=== PATIENT | male | born 1945 | race Caucasian/White ===

== ENCOUNTER 2024-07-05 07:00 | Day surgery (SDC) | payer MEDICARE, SELFPAY ==
[2024-07-01 12:22] VITALS: BMI 38.3
[2024-07-01 13:01] LABS: % Basophils 0.8 % (0-2); % Immature Granulocytes 0.3 % (0-0.5); % Lymphocytes 34.4 % (20.5-51.1); % Monocytes 9.8 % (1.7-9.3); % Neutrophils 52.7 % (42.2-75.2); Absolute Basophils 0.1 10^3/uL (0-0.2); Absolute Eosinophils 0.1 10^3/uL (0-0.7); Absolute Monocytes 0.6 10^3/uL (0.1-0.6); Absolute Neutrophils 3.1 10^3/uL (1.4-6.5); Hematocrit 40.3 % (39.0-52.0); Hemoglobin 13.9 g/dL (13.0-18.0); Mean Corp Hgb Conc. 34.5 g/dL (33.0-37.0); Mean Corpuscular Hgb 31.3 pg (27.0-31.0); Mean Corpuscular Volume 90.8 fL (80.0-94.0); Mean Platelet Volume 9.1 fL (7.4-10.4); Nucleated Red Blood Cells % 0 % (-); Platelet Count 157 10^3/uL (130-400); Red Blood Cell Count 4.44 10^6/uL (4.70-6.10); Red Cell Dist. Width 13.6 % (11.5-14.5); White Blood Cell Count 5.9 10^3/uL (4.8-10.8)
[2024-07-01 13:14] LABS: PT 17.2 Sec (11.4-14.6)
[2024-07-01 13:16] LABS: ALT (SGPT) 25 U/L (0-50); AST (SGOT) 29 U/L (17-59); Albumin 4.8 g/dl (3.5-5.0); Alkaline Phosphatase 49 U/L (38-126); Blood Urea Nitrogen 18 mg/dl (9-20); Calcium 9.8 mg/dl (8.4-10.2); Carbon Dioxide 28 mmol/L (22-30); Chloride 101 mmol/L (98-107); Estimated Creatinine Clearance 92 ml/min; Glucose 102 mg/dl (70-99); Magnesium 1.9 mg/dl (1.6-2.3); Sodium 141 mmol/L (135-145); Total Bilirubin 1.4 mg/dl (0.2-1.3); Total Protein 7.5 g/dl (6.3-8.2); eGFR > 60.00
[2024-07-01 13:35] LABS: Potassium 4.4 mmol/L (3.5-5.1)
[2024-07-05] VITALS (15 sets, daily range): BP systolic 130–164; BP diastolic 74–83; BMI 38.3
--- NOTE | 2024-07-05 10:07 | ITS.CL.ABL ---
Activities Assistant - Ablation
Ablation
Procedure Report:
ELECTROPHYSIOLOGIC STUDY AND POSSIBLE ABLATION
DATE: July 05, 2024
Primary Care Provider: Dr Ramesh Ramirez
INDICATION:
Symptomatic Atrial Fibrillation.
Persistent (diagnosed January 2024)
HISTORY: See H and P.
Symptomatic AF, poorly controlled with attempted medical therapy.
Atrial fibrillation was definitively diagnosed in January 2024. It appears as though he has had a some ongoing symptoms prior to that but uncertain as to true duration of atrial fibrillation.
He has a history of symptomatic (dyspnea on exertion as well as fatigue) persistent atrial fibrillation as well as heart failure with mildly reduced ejection fraction (LVEF 40-45%). He has been symptomatic despite being rate controlled. He has
marked bradycardia at baseline making antiarrhythmic drug therapy use unsafe, he has not tolerated attempt at beta-maude therapy due to symptomatic bradycardia. He understands that given his marked bradycardia he may also require permanent
pacemaker implantation for optimal management of his symptomatic rhythm disorder.
Echocardiogram from February 23Jun2023 which notes normal LV cavity size with mildly decreased global wall motion� �And overall LVEF estimated at 45%, normal RV size and function, mild to moderate tricuspid regurgitation without pulmonary
hypertension.� The left and right atria are both severely dilated.
HAS-BLED: 1
Age
CHADSVASc: 4
CHF, NYHA Class 3, LVEF 40-45%
HTN
Age
PRESENTING RHYTHM: AF
HISTORY: See H and P.
Symptomatic AF, poorly controlled with attempted medical therapy.
ANTICOAGULATION: Apixaban 5 mg twice daily
'TIME-OUT': called and confirmed.
SEDATION/ANESTHESIA: provided via the anesthesia department using general anesthesia.
PROCEDURE:
Ultrasound Guidance performed by wv was utilized for femoral venous Vascular Access b/l.
A decapolar CS catheter was placed within the CS for mapping and pacing.
The intracardiac ultrasound catheter was positioned in the RA for continuous intracardiac ultrasound imaging.
Heparin bolus and infusion to target ACT at 300 -350 seconds was administered. Transseptal puncture was performed. This entailed advancing a sheath with dilator into the superior vena cava and withdrawing both (monitoring intracardiac ultrasound,
fluoroscopy and tip pressure) with the tip oriented toward the atrial septum. The fossa ovalis was engaged (indicated by sudden displacement of the sheath tip as well as tenting of the fossa seen on intracardiac ultrasound).
The FarapFleep transseptal system was used. Left atrial catheter position was confirmed by echocardiographic imaging and fluoroscopy followed by RF delivery using the [employer] Software system resulting in successful LA access with pressure monitoring
demonstrating LA pressure waveforms (LA mean pressure 8 mm Hg). The sheath was advanced over the dilator and positioned in the left atrium.
Cardioversion restored sinus rhythm
The Bird Grid multipolar mapping catheter was initially positioned through the transseptal sheath for high density mapping.
Geometry and voltage mapping was performed using the Hole 19 multipolar grid catheter. Ensite-X was utilized for three-dimensional electroanatomical mapping.
A 3-D map was created using Ensite-X in Voxel mode. A 3-D reconstructed CT image was compared to the 3-D Navex map to assist in anatomic evaluation, mapping and ablation.
The FarapFleep PFA catheter and system was used for cardiac ablation. Catheter positioning was guided and confirmed using both I.C.E. and fluoroscopy.
PV isolation approach was used to electrically isolate each PV ostia (LSPV, LIPV, RSPV, RIPV).
Additional energy applications/additional ablation set was required to accomplish wide area circumferential ablation around each of the pulmonary vein sets and additionally ablation to accomplish LA posterior wall ablation.
Remapping with the Bird multipolar grid catheter found that all PVPs were eliminated at each vein demonstrating entrance block. Also pacing from the multipolar mapping catheter around the the circumference of the ostia was performed at 10 ma and
2.0 msec output to assess for exit block. This demonstrated electrical isolation at each of the pulmonary vein ostia (LSPV, LIPV, RSPV, RIPV). There is also entrance and exit block at the LA posterior wall.
Programmed electrostimulation failed to induce any arrhythmias.
I.C.E. :
Pre-Ablation Post-Ablation
LVEF: 40 % 40 %
WMA: none none
Pericardial effusion: none none
COMPLICATIONS:
SUMMARY:
- Mapping and ablation to isolate the PVs
- Additional AF ablation set after PVI.
- 3-D Electroanatomical Mapping
- Intracardiac Ultrasound
Post ablation, I discussed today's findings and results with the patient's brother, Tobias.
RECOMMENDATIONS:
- Observe in monitored bed.
- Maintain oral anticoagulation.
- Office visit with me in 3-4 months.
Copy to:
Dr Ramesh Ramirez
[2024-07-05 11:09] LABS: ACT-LR - POC 374 Seconds (116-155)
[2024-07-05 11:23] LABS: ACT-LR - POC 326 Seconds (116-155)
[2024-07-05] MEDS: ANESTHETIC LOZENGE 1 LOZENGE PO (12:49)
--- NOTE | 2024-07-05 14:04 | W.PN.UPDATE ---
Update Note
Progress Note Update
Pt seen post PFA. Right groin site without ht/bleeding, non tender. OOB ambulating, urinating without difficulty. Post EKG SB w/1st deg AVB 50s, no acute changes. HR has improved since preop, when it was AFib 30-40s. Resume eliquis tonight, continue
other meds as before. Followup at [facility] in [address], [address] Dr[address] Self thereafter.
== END 2024-07-05 14:57 | disposition home or self-care (01) ==
LOC: CATH 07:00
PROVIDERS: ATTENDING PHYSICIAN Internal Medicine Cardiovascular Disease; FAMILY PHYSICIAN Family Medicine; OTHER PHYSICIAN Family Medicine
DX: I48.19 Other persistent atrial fibrillation (principal); I11.0 Hypertensive heart disease with heart failure; E78.5 Hyperlipidemia, unspecified; E66.9 Obesity, unspecified; Z68.38 Body mass index [BMI] 38.0-38.9, adult; K51.90 Ulcerative colitis, unspecified, without complications; Z68.37 Body mass index [BMI] 37.0-37.9, adult; Z79.899 Other long term (current) drug therapy; Z79.01 Long term (current) use of anticoagulants
CPT/HCPCS: C1732; C1894; C1769; C1892; C1759; 36415; 75572; 80053; 83735; 85025; 85347; 85610; 86850; 86900; 86901; 93005; 93656; 93657; C1730; C1733; C1760; C1766; Q9967

== ENCOUNTER → 2025-01-12 14:07 | Outpatient (REF) | payer MEDICARE, SELFPAY | LOC: RCS 14:07 | PROVIDERS: ATTENDING PHYSICIAN Nurse Practitioner; FAMILY PHYSICIAN Physician Assistant Medical | DX: I50.20 Unspecified systolic (congestive) heart failure (principal); I49.3 Ventricular premature depolarization | CPT/HCPCS: 93306 ==

== ENCOUNTER 2025-01-21 10:45 | Inpatient (IN) | payer MEDICARE, SELFPAY ==
[2025-01-21] VITALS (11 sets, daily range): BP systolic 125–181; BP diastolic 62–91; BMI 39.8; BMI 38.1
[2025-01-21] MEDS: LOW STRENGTH ASPIRIN 324 MG PO (07:21)
--- NOTE | 2025-01-21 10:18 | ITS.CL.CATH ---
Eligibility Examiner - Catheterization
Cardiac Catheterization
Procedure Report:
RIGHT AND LEFT HEART STUDY
Date of Procedure: January 21, 2025
Referring: Dr. Magdalena Zayas
PROCEDURES:
1. Right heart catheterization
2. Left heart catheterization with coronary and single-plane left ventriculography
INDICATION: This is a 79-year-old gentleman with a past medical history notable for hypertension, atrial fibrillation, and dilated cardiomyopathy with recent worsening in LVEF. He underwent pulmonary vein isolation in July 2024 and experienced
a recent worsening in symptoms of exertional dyspnea as well as development of lower extremity edema. A recent echocardiogram was notable for worsening in LVEF and he is now referred for coronary angiography. He denies any chest discomfort but
does report a significant change in functional capacity with dyspnea occurring at very low levels of exertion.
ACCESS: Right radial artery, 6 Icelandic sheath in right brachial vein, 6 Icelandic sheath. Ultrasound guidance was utilized for both access sites.
HEMODYNAMICS : mmHg
RA (m) : 25
RV (s/d) : 87/13, 22
PA (s/d, m) : 91/33, 48
PCWP (m) : 40
AO (s/d, m) : 156/72, 103
LV (s/d) : 167/24
LVEDP : 35
Estimated Ladan Cardiac Output: 5.6 L / min and Cardiac Index: 2.2 L/ min / m-2
Systemic vascular resistance: 13.9 Wood units or 1114 ccdkk-vpl-mc(-5)
Pulmonary vascular resistance: 1.4 Wood units or 114 yqiut-clt-eo(-5)
CORONARY FINDINGS :
Dominance: Right
LEFT MAIN: Tubular 50% stenosis
LEFT ANTERIOR DESCENDING: The LAD arises normally from the left main and has a complex proximal 95% stenosis involving the origin of a large first diagonal branch. The mid to distal LAD has minor irregularities.
CIRCUMFLEX: The circumflex is a large-caliber nondominant vessel with a 95% proximal stenosis. The circumflex supplies a single large bifurcating obtuse marginal branch.
RIGHT CORONARY ARTERY: The right coronary artery is occluded proximally with bridging collaterals and right to right collaterals as well as ayqp-hb-nwlci collaterals from circumflex and LAD
VENTRICULOGRAPHY: Left ventriculography is performed in FUENTES projection. The digital single-plane left ventricular ejection fraction is visually estimated at 20-25%
SEDATION: 46 minutes of procedural sedation was utilized. An independent manager medical was present to assist with and help manage the patient's level of consciousness and physiologic status
RADIATION SUMMARY: Fluoro Time (min): 4.9, Dose (mGy): 864, DAP (Gy.cm2) : 76.4
CONCLUSIONS
1. Multivessel coronary artery disease involving proximal LAD, large diagonal branch, proximal circumflex, and total occlusion of the RCA which is collateralized in a right to right and ejqq-we-trbav fashion
2. LV dysfunction with elevated right and left ventricular filling pressures. Reasonable cardiac output and cardiac index
RECOMMENDATIONS
1. Patient will be admitted and undergo diuresis.
2. Consult CT surgery to consider coronary artery bypass grafting with targets to LAD, diagonal, OM, and PDA/PLB, left atrial appendage ligation +/- MAZE
3. Significant LV dysfunction on good medical therapy. Cannot add oral beta maude given significant underlying bradycardia
Copy to: Dr. Bony Fleming
[2025-01-21] MEDS: LASIX 40 MG IV ×2 (10:49→17:00)
[2025-01-21 11:11] LABS: Hematocrit 39.2 % (39.0-52.0); Hemoglobin 13.5 g/dL (13.0-18.0); Mean Corp Hgb Conc. 34.4 g/dL (33.0-37.0); Mean Corpuscular Hgb 32.2 pg (27.0-31.0); Mean Corpuscular Volume 93.6 fL (80.0-94.0); Platelet Count 155 10^3/uL (130-400); Red Blood Cell Count 4.19 10^6/uL (4.70-6.10); Red Cell Dist. Width 13.4 % (11.5-14.5)
[2025-01-21 11:50] LABS: APTT 153.7 Sec (23.4-35.0)
--- NOTE | 2025-01-21 13:25 | CONSULT.CT ---
Consultation
-
Date/Time Consultation Requested: 01/21/25
Date/Time Consultation Performed: 01/21/25
Requesting Provider: Dr. Goins
Reason for Consultation: consideration of CABG with BRITTA clip +/- MAZE
Patient History
Physicians
Outpatient Cleaner Furniture: Dr. Magdalena Zayas
History of Present Illness
Mr. Doyle is a 79-year-old male with a PMHx of HTN, AF (s/p PVI - 07/2024) on Eliquis, and dilated cardiomyopathy with recent reduction of LVEF (45% to 20-25%) who presented to his outpatient cardiology office with complaints of progressive
dyspnea and worsening B/L LLE. He obtained a TTE (01/12/25) which showed newly reduced LVEF of 20-25% with severely reduced LV systolic dysfunction, dilated RV with preserved RV function, no /AI, trace MR, mild TR with PASP 68 and CVP 8, trace PA
and noted to be in AF with slow ventricular response. He was referred for R/LHC.
Today, Mr. Russell underwent R/LHC (01/21/25) with Dr. Goins which revealed elevated R-sided pressures and multivessel disease. He was admitted to IVU for inpatient diuresis. Eliquis was placed on hold and a Heparin gtt was initiated per
Cardiology. Cardiothoracic Surgery was consulted for evaluation of multivessel disease and consideration of CABG with targets to LAD, diagonal, OM, and PDA/PLB with BRITTA closure +/- MAZE. Patient is currently being medically optimized with diuretic
by primary team.
Past Medical History
Past Medical History: Atrial Fib, CHF, Covid-19 (2019) and HTN
Pre-diabetic
Past Surgical History
Past Surgical History: Other
PVI 07/2024
Family History
Father: at Age (50's) and Cause of (Mesothelioma )
Social History
Alcohol: None
Drug: Marijuana (occasional)
Tobacco: Non-Smoker
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
Allergies
Allergy/AdvReac Type Severity Reaction Status Date / Time
No Known Allergies Allergy Verified 01/21/25 06:41
Home Medications
�Medication �Instructions �Recorded �Confirmed �Type
apixaban 5 mg tablet (Eliquis) 5 mg PO BID 06/28/24 01/21/25 History
furosemide 20 mg tablet 20 mg PO DAILY 06/28/24 01/21/25 History
spironolactone 25 mg tablet 25 mg PO DAILY 06/28/24 01/21/25 History
atorvastatin 20 mg tablet (Lipitor) 20 mg PO DAILY 01/21/25 01/21/25 History
sacubitril 24 mg-valsartan 26 mg 1 tab PO BID 01/21/25 01/21/25 History
tablet (Entresto)
Review of Systems
-
History Source: Patient
General: Reports Weight Gain and Fatigue
HEENT: Reports No Symptoms
Respiratory: Reports BARRETT and Other (Orthopnea)
Cardiac: Reports Edema
Abdomen/GI: Reports No Symptoms
: Reports Nocturia
Musculoskeletal: Reports No Symptoms
Skin: Reports No Symptoms
Neurological: Reports No Symptoms
Vascular: Reports No Symptoms
Physical Exam
Vital Signs
Temp 98.3 F 01/21/25 12:29
Temp route: Oral 01/21/25 12:29
Pulse 37 01/21/25 12:45
Resp Rate 16 01/21/25 12:29
Blood pressure 150/70 01/21/25 12:29
Blood pressure extremity used: Left upper arm 01/21/25 12:29
Position: Sitting 01/21/25 12:29
MAP (cuff-Day Monitor) 88 01/21/25 12:29
SaO2 96 01/21/25 12:45
Oxygen Mode of Delivery Room air 01/21/25 12:29
Can the patient verbally communicate their pain? Yes 01/21/25 10:20
Actual Weight 129.3 kg 01/21/25 12:35
Body Mass Index (BMI) 38.1 01/21/25 12:35
Labs
01/21/25 10:55
APTT 153.7 Sec (23.4-35.0) H* 01/21/25 10:55
Exam
General: Well Developed and Good Appetite
HEENT: Normocephalic, Atraumatic and PERRLA
Respiratory: Clear
Cardiac: S1/S2 and Irregular Rhythm
GI: Soft, Non Tender and Non Distended
Skin: Warm and Dry
Neuro: AO x 3
Extremities: Lower Level Edema
Psych: Calm
Assessment / Plan
-
#CAD
- s/p R/LHC on 01/21/25 showing multivessel CAD - pLAD, diagonal, pCirc, and total occlusion of RCA with collateral flow (R to R & L to R)
- Continue high-dose statin therapy & ASA
- Not on BB due to bradycardia
- Heparin gtt per Cardiology while Eliquis held
- Obtain pre-operative work-up including: Chest CT, Carotid US, Vein Mapping
#CHF
- Pt with PMHx of dilated cardiomyopathy
- Recent TTE (12/2024) with newly reduced EF (45 - 20 to 25%)
- s/p R/LHC with elevated filling pressures (RA 25, PA 91/33, PCWP 40, LVEDP 35)
- admitted for further diuresis
- managed on GDMT (Lasix, Entresto, Spironolactone)
#HTN
- continue outpatient regiment
#AF
- s/p PVI with Dr. Fleming 07/2024
- Eliquis placed on hold by primary team, Heparin infusion ordered
- not on BB due to bradycardia
--- NOTE | 2025-01-21 13:56 | PTCARENOTE ---
Received pt post cath. Right radial and right brachial sites intact. Right radial site w/ R band. VSS. Pt denies chest pain or sob. Pt remains in atrial fibrillation. Pt's daughter at bedside. Will monitor.
[2025-01-21] MEDS: HEPARIN 25000 UNITS/250 ML IV (15:00)
--- NOTE | 2025-01-21 16:22 | CM ---
CM following for DC planning needs.
Met w/ patient + dtr. at bedside to complete initial assessment.
Pt. resides w/ dtr. in a private, 3 [facility] but remains on 1st and 2nd levels primarily; 2 [place].
He is functionally indep. at baseline w/ ADLs, mobility without the use of any assisted device.
Pt. still drives; in fact, he drove here.
Pt. has RX plan and uses [facility] on [address] for RX needs.
Pt. anticipates that he will need CT Surgery. Reviewed CM role in this regard.
Will follow closely for DC planning needs/ support.
[2025-01-21] MEDS: LIPITOR 80 MG PO (17:45)
[2025-01-21] MEDS: ENTRESTO 24 MG/26 MG 1 TAB PO (19:49)
[2025-01-21 21:27] LABS: APTT 64.9 Sec (23.4-35.0)
--- NOTE | 2025-01-21 23:54 | PTCARENOTE ---
Pt rec'd at change of shift in bed. Dyspneic with activity. lungs clear. afib on telemetry with ht rate 30-40's, denies feeling lightheaded. Right radial and brachial drsg intact with good pulse. No active bleeding or hematoma present. heparin gtt
adjusted to ptt level 64.9. Drip increased to 1600 units/hr.
[2025-01-22] VITALS (9 sets, daily range): BP systolic 112–153; BP diastolic 70–104; BMI 37.2
--- NOTE | 2025-01-22 00:32 | PTCARENOTE ---
6 beat run of VT on tele monitor at 2308.
[2025-01-22 04:34] LABS: Hematocrit 42.6 % (39.0-52.0); Hemoglobin 14.7 g/dL (13.0-18.0); Mean Corp Hgb Conc. 34.5 g/dL (33.0-37.0); Mean Corpuscular Hgb 31.9 pg (27.0-31.0); Mean Corpuscular Volume 92.4 fL (80.0-94.0); Mean Platelet Volume 9.1 fL (7.4-10.4); Platelet Count 152 10^3/uL (130-400); Red Blood Cell Count 4.61 10^6/uL (4.70-6.10); Red Cell Dist. Width 13.2 % (11.5-14.5); White Blood Cell Count 7.2 10^3/uL (4.8-10.8)
[2025-01-22 04:43] LABS: APTT 74.4 Sec (23.4-35.0)
[2025-01-22 04:55] LABS: ALT (SGPT) 23 U/L (0-50); AST (SGOT) 21 U/L (17-59); Albumin 4.4 g/dl (3.5-5.0); Alkaline Phosphatase 64 U/L (38-126); Blood Urea Nitrogen 16 mg/dl (9-20); Calcium 9.5 mg/dl (8.4-10.2); Carbon Dioxide 28 mmol/L (22-30); Chloride 106 mmol/L (98-107); Direct Bilirubin 0.1 mg/dl (0.0-0.4); Estimated Creatinine Clearance 105 ml/min; Glucose 114 mg/dl (70-99); HDL Cholesterol 45 mg/dl; LDL Cholesterol, Calculated 92 mg/dl; Potassium 3.9 mmol/L (3.5-5.1); Sodium 142 mmol/L (135-145); Total Bilirubin 1.6 mg/dl (0.2-1.3); Total Cholesterol 156 mg/dl (50-199); Triglyceride 98 mg/dl (10-149); Very Low Density Lipoprotein 19 mg/dl (0-30); eGFR > 60.00
[2025-01-22] MEDS: HEPARIN 25000 UNITS/250 ML IV ×2 (06:07→21:36)
[2025-01-22] MEDS: ALDACTONE 25 MG PO (08:18)
[2025-01-22] MEDS: PROTONIX 40 MG PO (08:18)
[2025-01-22] MEDS: LASIX 40 MG IV ×2 (08:19→15:29)
[2025-01-22] MEDS: ENTRESTO 24 MG/26 MG 1 TAB PO ×2 (08:19→21:36)
[2025-01-22] MEDS: LOW STRENGTH ASPIRIN 81 MG PO (08:19)
--- NOTE | 2025-01-22 08:38 | W.PN.CARDCBS ---
Today's Communication / Plan
-
Cont IV diuresis
CT surgery eval ongoing.
Impression / Plan
-
.
Customer Care Team Coach: Dr Simmons / Dr Zayas
Impression:
MVCAD for CABG eval
Ischemic CM EF 20-25%
HFrEF
PAFib hx PVI Jul 2024
HTN
Bradycardia
Cath Jan 21 2025:
INDICATION: This is a 79-year-old gentleman with a past medical history notable for hypertension, atrial fibrillation, and dilated cardiomyopathy with recent worsening in LVEF. He underwent pulmonary vein isolation in July 2024 and experienced
a recent worsening in symptoms of exertional dyspnea as well as development of lower extremity edema. A recent echocardiogram was notable for worsening in LVEF and he is now referred for coronary angiography. He denies any chest discomfort but
does report a significant change in functional capacity with dyspnea occurring at very low levels of exertion.
HEMODYNAMICS : mmHg
RA (m) : 25
RV (s/d) : 87/13, 22
PA (s/d, m) : 91/33, 48
PCWP (m) : 40
AO (s/d, m) : 156/72, 103
LV (s/d) : 167/24
LVEDP : 35
Estimated Ladan Cardiac Output: 5.6 L / min and Cardiac Index: 2.2 L/ min / m-2
Systemic vascular resistance: 13.9 Wood units or 1114 qujoh-vsy-ta(-5)
Pulmonary vascular resistance: 1.4 Wood units or 114 dopcs-roy-ch(-5)
CORONARY FINDINGS :
Dominance: Right
LEFT MAIN: Tubular 50% stenosis
LEFT ANTERIOR DESCENDING: The LAD arises normally from the left main and has a complex proximal 95% stenosis involving the origin of a large first diagonal branch. The mid to distal LAD has minor irregularities.
CIRCUMFLEX: The circumflex is a large-caliber nondominant vessel with a 95% proximal stenosis. The circumflex supplies a single large bifurcating obtuse marginal branch.
RIGHT CORONARY ARTERY: The right coronary artery is occluded proximally with bridging collaterals and right to right collaterals as well as cqqy-zf-urdzy collaterals from circumflex and LAD
VENTRICULOGRAPHY: Left ventriculography ejection fraction is visually estimated at 20-25%
CONCLUSIONS
1. Multivessel coronary artery disease involving proximal LAD, large diagonal branch, proximal circumflex, and total occlusion of the RCA which is collateralized in a right to right and [id number]-[id number] fashion
2. LV dysfunction with elevated right and left ventricular filling pressures. Reasonable cardiac output and cardiac index
RECOMMENDATIONS
1. Patient will be admitted and undergo diuresis.
2. Consult CT surgery to consider coronary artery bypass grafting with targets to LAD, diagonal, OM, and PDA/PLB, left atrial appendage ligation +/- MAZE
3. Significant LV dysfunction on good medical therapy. Cannot add oral beta maude given significant underlying bradycardia
Echo Jan 12 2025: Dilated cardiomyopathy with severely reduced left ventricular systolic function , EF 20-25%, Enlarged right ventricle with overall preserved RV systolic functio, Biatrial dilatation, Mild tricuspid regurgitation, PASP 68 mmHg,
AFib with slow response.
Outside echo January 2024: EF 45%, RALEIGH 6.1cm, mild to mod TR, RV dilated
Plan:
Cont IV Heparin; Eliquis held
Cath reviewed with pt
HR and bp stable
Cont GDMT, cont Entresto and aldactone.
No beta maude due to bradycardia
CT surgery eval and work up ongoing
Continue IV diuresis. 3L negative last 24 hrs
Wt coming down approx 8 lbs last 24 hrs if accurate
Monitor cr with diuresis and daily wts and Is and Os.
Progress Note - Customer Care Team Coach
Subjective
Date of Service: January 22, 2025
Pt seen and examined. No complaints. No chest pain or shortness of breath.
Objective
Labs:
01/22/25 04:05
01/22/25 04:05
Labs
Hgb 14.7 g/dL (13.0-18.0) 01/22/25 04:05
Hct 42.6 % (39.0-52.0) 01/22/25 04:05
Plt Count 152 10^3/uL (130-400) 01/22/25 04:05
APTT 74.4 Sec (23.4-35.0) H 01/22/25 04:05
Sodium 142 mmol/L (135-145) 01/22/25 04:05
Potassium 3.9 mmol/L (3.5-5.1) 01/22/25 04:05
BUN 16 mg/dl (9-20) 01/22/25 04:05
Creatinine 0.8 mg/dL (0.7-1.3) 01/22/25 04:05
Glucose 114 mg/dl (70-99) H 01/22/25 04:05
Vital Signs and I&O:
Vital Signs
Temp Pulse Resp BP Pulse Ox
98.1 F 53 20 141/70 96
01/22/25 03:56 01/22/25 03:55 01/22/25 03:56 01/22/25 03:55 01/22/25 03:56
Vital Signs
Temp Pulse Resp BP Pulse Ox
98.1 F 53 20 141/70 96
01/22/25 03:56 01/22/25 03:55 01/22/25 03:56 01/22/25 03:55 01/22/25 03:56
Intake & Output
01/20/25 01/21/25 01/22/25 01/23/25
06:59 06:59 06:59 06:59
Intake Total 300 / 300
Output Total 3300 / 3300
Balance -3000 / -3000
Physical Exam
Physical Exam
General: No acute distress, AAOX3
Neck: Negative JVD
Heart: Regular, Negative S3 positive S1/S2, Negative S4, No murmur
Lungs: CTA b/l, negative wheezes/rales/rhonchi
Abd: Positive BS, NT/ND, neg rebound/rigidity/guarding
Ext: Negative cyanosis/clubbing/edema
Neuro: nonfocal
[2025-01-22 11:51] LABS: APTT 80.9 Sec (23.4-35.0)
[2025-01-22 15:00] LABS: Glycohemoglobin (HgbA1c) 5.3 % (4.0-5.6)
--- NOTE | 2025-01-22 15:30 | PTCARENOTE ---
Assessment stable as documented. VSS no complaints, oob in chair most of day.
[2025-01-22] MEDS: LIPITOR 80 MG PO (17:41)
--- NOTE | 2025-01-22 23:26 | PTCARENOTE ---
assumed care of patient. AAOx3. independent in the room. denies any cp/sob. patient states feeling much better. states he ambulated in the halls without any cp/sob. no edema noted- much improved per patient. Afib on tele- 40s-70s. bp 122/82. heparin
gtt infusing per protocol. reviewed plan of care with patient and verbalized understanding. educated to inform RN with any new changes overnight. call [place]af[place]te within reach. makes needs known.
[2025-01-23 04:32] VITALS: BP 122/66
[2025-01-23 04:49] LABS: Hematocrit 44.9 % (39.0-52.0); Hemoglobin 15.6 g/dL (13.0-18.0); Mean Corp Hgb Conc. 34.7 g/dL (33.0-37.0); Mean Corpuscular Hgb 31.9 pg (27.0-31.0); Mean Corpuscular Volume 91.8 fL (80.0-94.0); Mean Platelet Volume 8.8 fL (7.4-10.4); Platelet Count 143 10^3/uL (130-400); Red Blood Cell Count 4.89 10^6/uL (4.70-6.10); Red Cell Dist. Width 12.9 % (11.5-14.5); White Blood Cell Count 7.3 10^3/uL (4.8-10.8)
[2025-01-23 06:04] LABS: APTT 164.1 Sec (23.4-35.0)
[2025-01-23 06:12] LABS: Blood Urea Nitrogen 19 mg/dl (9-20); Calcium 9.5 mg/dl (8.4-10.2); Carbon Dioxide 26 mmol/L (22-30); Chloride 106 mmol/L (98-107); Estimated Creatinine Clearance 105 ml/min; Glucose 119 mg/dl (70-99); Magnesium 1.9 mg/dl (1.6-2.3); Potassium 3.8 mmol/L (3.5-5.1); Sodium 140 mmol/L (135-145); eGFR > 60.00
[2025-01-23 07:35] VITALS: BP 140/67
[2025-01-23] MEDS: ENTRESTO 24 MG/26 MG 1 TAB PO ×2 (08:31→19:50)
[2025-01-23] MEDS: ALDACTONE 25 MG PO (08:31)
[2025-01-23] MEDS: PROTONIX 40 MG PO (08:31)
[2025-01-23] MEDS: LASIX 40 MG IV ×2 (08:32→16:35)
[2025-01-23] MEDS: LOW STRENGTH ASPIRIN 81 MG PO (08:32)
--- NOTE | 2025-01-23 08:34 | W.PN.CARDCBS ---
Today's Communication / Plan
-
Cont IV lasix
Cont IV heparin
CT surgery evaluating and possible CABG mid week
Impression / Plan
-
.
Water Supervisor: Dr Simmons / Dr Zayas
Impression:
MVCAD for CABG eval
Ischemic CM EF 20-25%
HFrEF
PAFib hx PVI Jul 2024
HTN
Bradycardia
Cath Jan 21 2025:
INDICATION: This is a 79-year-old gentleman with a past medical history notable for hypertension, atrial fibrillation, and dilated cardiomyopathy with recent worsening in LVEF. He underwent pulmonary vein isolation in July 2024 and experienced
a recent worsening in symptoms of exertional dyspnea as well as development of lower extremity edema. A recent echocardiogram was notable for worsening in LVEF and he is now referred for coronary angiography. He denies any chest discomfort but
does report a significant change in functional capacity with dyspnea occurring at very low levels of exertion.
HEMODYNAMICS : mmHg
RA (m) : 25
RV (s/d) : 87/13, 22
PA (s/d, m) : 91/33, 48
PCWP (m) : 40
AO (s/d, m) : 156/72, 103
LV (s/d) : 167/24
LVEDP : 35
Estimated Ladan Cardiac Output: 5.6 L / min and Cardiac Index: 2.2 L/ min / m-2
Systemic vascular resistance: 13.9 Wood units or 1114 uaqlb-srt-sc(-5)
Pulmonary vascular resistance: 1.4 Wood units or 114 fksem-axv-wc(-5)
CORONARY FINDINGS :
Dominance: Right
LEFT MAIN: Tubular 50% stenosis
LEFT ANTERIOR DESCENDING: The LAD arises normally from the left main and has a complex proximal 95% stenosis involving the origin of a large first diagonal branch. The mid to distal LAD has minor irregularities.
CIRCUMFLEX: The circumflex is a large-caliber nondominant vessel with a 95% proximal stenosis. The circumflex supplies a single large bifurcating obtuse marginal branch.
RIGHT CORONARY ARTERY: The right coronary artery is occluded proximally with bridging collaterals and right to right collaterals as well as zerq-hr-sopks collaterals from circumflex and LAD
VENTRICULOGRAPHY: Left ventriculography ejection fraction is visually estimated at 20-25%
CONCLUSIONS
1. Multivessel coronary artery disease involving proximal LAD, large diagonal branch, proximal circumflex, and total occlusion of the RCA which is collateralized in a right to right and zhgs-lx-zeinn fashion
2. LV dysfunction with elevated right and left ventricular filling pressures. Reasonable cardiac output and cardiac index
RECOMMENDATIONS
1. Patient will be admitted and undergo diuresis.
2. Consult CT surgery to consider coronary artery bypass grafting with targets to LAD, diagonal, OM, and PDA/PLB, left atrial appendage ligation +/- MAZE
3. Significant LV dysfunction on good medical therapy. Cannot add oral beta maude given significant underlying bradycardia
Echo Jan 12 2025: Dilated cardiomyopathy with severely reduced left ventricular systolic function , EF 20-25%, Enlarged right ventricle with overall preserved RV systolic functio, Biatrial dilatation, Mild tricuspid regurgitation, PASP 68 mmHg,
AFib with slow response.
Outside echo January 2024: EF 45%, RALEIGH 6.1cm, mild to mod TR, RV dilated
Plan:
Cont IV Heparin; Eliquis held
HR and bp remain stable
Cont GDMT, cont Entresto and aldactone.
No beta maude due to bradycardia
CT surgery eval and work up ongoing
Continue IV diuresis. Is and Os remain negative
Wt coming down over 10 lbs
Monitor cr with diuresis and daily wts and Is and Os.
Discussed with nursing.
Progress Note - Water Supervisor
Subjective
Date of Service: January 23, 2025
Pt seen and examined. No complaints. No chest pain or shortness of breath.
Objective
Labs:
01/23/25 04:32
01/23/25 04:32
Labs
Hgb 15.6 g/dL (13.0-18.0) 01/23/25 04:32
Hct 44.9 % (39.0-52.0) 01/23/25 04:32
Plt Count 143 10^3/uL (130-400) 01/23/25 04:32
APTT 164.1 Sec (23.4-35.0) H* 01/23/25 04:32
Sodium 140 mmol/L (135-145) 01/23/25 04:32
Potassium 3.8 mmol/L (3.5-5.1) 01/23/25 04:32
BUN 19 mg/dl (9-20) 01/23/25 04:32
Creatinine 0.8 mg/dL (0.7-1.3) 01/23/25 04:32
Glucose 119 mg/dl (70-99) H 01/23/25 04:32
Vital Signs and I&O:
Vital Signs
Temp Pulse Resp BP Pulse Ox
97.7 F 40 20 122/66 97
01/23/25 07:44 01/23/25 04:45 01/23/25 07:44 01/23/25 04:32 01/23/25 07:44
Vital Signs
Temp Pulse Resp BP Pulse Ox
97.7 F 40 20 122/66 97
01/23/25 07:44 01/23/25 04:45 01/23/25 07:44 01/23/25 04:32 01/23/25 07:44
Intake & Output
01/21/25 01/22/25 01/23/25 01/24/25
06:59 06:59 06:59 06:59
Intake Total 300 / 300 550 / 550
Output Total 3300 / 3300 950 / 950
Balance -3000 / -3000 -400 / -400
Physical Exam
Physical Exam
General: No acute distress, AAOX3
Neck: Negative JVD
Heart: Regular, Negative S3 positive S1/S2, Negative S4, No murmur
Lungs: CTA b/l, negative wheezes/rales/rhonchi
Abd: Positive BS, NT/ND, neg rebound/rigidity/guarding
Ext: Negative cyanosis/clubbing/edema
Neuro: nonfocal
[2025-01-23 11:32] VITALS: BP 102/62
[2025-01-23 13:44] LABS: APTT 82.9 Sec (23.4-35.0)
[2025-01-23 15:49] VITALS: BP 114/69
[2025-01-23] MEDS: HEPARIN 25000 UNITS/250 ML IV (16:31)
[2025-01-23] MEDS: LIPITOR 80 MG PO (17:43)
--- NOTE | 2025-01-23 18:00 | PTCARENOTE ---
Pt received this am with no c/o of any chest pain or sob. IV heparin infusing as ordered. OOB ad stanislaw, gait steady. Right radial and brachial cath sites WNL and open to air.
[2025-01-23 19:45] VITALS: BP 104/72
[2025-01-23 20:07] LABS: APTT 81.1 Sec (23.4-35.0)
[2025-01-23] MEDS: KCL 40 MEQ PO (22:52)
[2025-01-23] MEDS: MAGNESIUM OXIDE 500 MG PO (22:52)
[2025-01-23 22:58] VITALS: BP 120/63
--- NOTE | 2025-01-24 00:12 | PTCARENOTE ---
Pt received from previous shift OOB --> chair. AAOx3, pleasant. Tele = afib w/PVCs. Full physical assessment documented (refer to worklst) #20 LAC INTw/heparin gtt at 1400units/hr, protocol followed. Offers no complaints. Call christo w/in reach.
[2025-01-24 05:15] VITALS: BP 122/62
[2025-01-24 05:36] LABS: Hematocrit 45.4 % (39.0-52.0); Hemoglobin 15.9 g/dL (13.0-18.0); Mean Corpuscular Hgb 31.9 pg (27.0-31.0); Mean Corpuscular Volume 91.2 fL (80.0-94.0); Mean Platelet Volume 9.4 fL (7.4-10.4); Platelet Count 153 10^3/uL (130-400); Red Blood Cell Count 4.98 10^6/uL (4.70-6.10); Red Cell Dist. Width 13.2 % (11.5-14.5)
[2025-01-24 05:59] LABS: APTT 160.6 Sec (23.4-35.0)
[2025-01-24 06:00] VITALS: BMI 36.7
[2025-01-24 06:50] LABS: Blood Urea Nitrogen 25 mg/dl (9-20); Calcium 9.3 mg/dl (8.4-10.2); Carbon Dioxide 24 mmol/L (22-30); Chloride 107 mmol/L (98-107); Estimated Creatinine Clearance 93 ml/min; Glucose 115 mg/dl (70-99); Magnesium 1.9 mg/dl (1.6-2.3); Potassium 4.2 mmol/L (3.5-5.1); Sodium 139 mmol/L (135-145); eGFR > 60.00
[2025-01-24 08:04] VITALS: BP 131/73
[2025-01-24] MEDS: PROTONIX 40 MG PO (09:32)
[2025-01-24] MEDS: LASIX 40 MG IV ×2 (09:32→15:24)
[2025-01-24] MEDS: LOW STRENGTH ASPIRIN 81 MG PO (09:32)
[2025-01-24] MEDS: ALDACTONE 25 MG PO (09:32)
[2025-01-24] MEDS: HEPARIN 25000 UNITS/250 ML IV (11:24)
[2025-01-24 11:37] VITALS: BP 130/64
--- NOTE | 2025-01-24 12:34 | W.PN.CARDCBS ---
Today's Communication / Plan
-
Continue IV Lasix
Timing of surgical revascularization per CTS
Impression / Plan
-
Detective Youth Bureau: Dr Simmons / Dr Zayas
Impression:
MVCAD for CABG eval
Ischemic CM EF 20-25%
HFrEF
PAFib hx PVI Jul 2024
HTN
Bradycardia
Cath Jan 21 2025:
INDICATION: This is a 79-year-old gentleman with a past medical history notable for hypertension, atrial fibrillation, and dilated cardiomyopathy with recent worsening in LVEF. He underwent pulmonary vein isolation in July 2024 and experienced
a recent worsening in symptoms of exertional dyspnea as well as development of lower extremity edema. A recent echocardiogram was notable for worsening in LVEF and he is now referred for coronary angiography. He denies any chest discomfort but
does report a significant change in functional capacity with dyspnea occurring at very low levels of exertion.
HEMODYNAMICS : mmHg
RA (m) : 25
RV (s/d) : 87/13, 22
PA (s/d, m) : 91/33, 48
PCWP (m) : 40
AO (s/d, m) : 156/72, 103
LV (s/d) : 167/24
LVEDP : 35
Estimated Ladan Cardiac Output: 5.6 L / min and Cardiac Index: 2.2 L/ min / m-2
Systemic vascular resistance: 13.9 Wood units or 1114 iymji-qul-lm(-5)
Pulmonary vascular resistance: 1.4 Wood units or 114 bcutr-hqy-dj(-5)
CORONARY FINDINGS :
Dominance: Right
LEFT MAIN: Tubular 50% stenosis
LEFT ANTERIOR DESCENDING: The LAD arises normally from the left main and has a complex proximal 95% stenosis involving the origin of a large first diagonal branch. The mid to distal LAD has minor irregularities.
CIRCUMFLEX: The circumflex is a large-caliber nondominant vessel with a 95% proximal stenosis. The circumflex supplies a single large bifurcating obtuse marginal branch.
RIGHT CORONARY ARTERY: The right coronary artery is occluded proximally with bridging collaterals and right to right collaterals as well as xvcs-hr-aokzp collaterals from circumflex and LAD
VENTRICULOGRAPHY: Left ventriculography ejection fraction is visually estimated at 20-25%
CONCLUSIONS
1. Multivessel coronary artery disease involving proximal LAD, large diagonal branch, proximal circumflex, and total occlusion of the RCA which is collateralized in a right to right and mvby-cy-tdefl fashion
2. LV dysfunction with elevated right and left ventricular filling pressures. Reasonable cardiac output and cardiac index
RECOMMENDATIONS
1. Patient will be admitted and undergo diuresis.
2. Consult CT surgery to consider coronary artery bypass grafting with targets to LAD, diagonal, OM, and PDA/PLB, left atrial appendage ligation +/- MAZE
3. Significant LV dysfunction on good medical therapy. Cannot add oral beta maude given significant underlying bradycardia
Echo Jan 12 2025: Dilated cardiomyopathy with severely reduced left ventricular systolic function , EF 20-25%, Enlarged right ventricle with overall preserved RV systolic functio, Biatrial dilatation, Mild tricuspid regurgitation, PASP 68 mmHg,
AFib with slow response.
Outside echo January 2024: EF 45%, RALEIGH 6.1cm, mild to mod TR, RV dilated
Plan:
PCWP significantly elevated based on invasive hemodynamics 01/21/25
Continue IV diuresis. Is and Os remain negative
Wt coming down over 10 lbs
HR and bp remain stable
Cont aldactone
No beta maude due to bradycardia
Entresto on hold prior to OR
CTS eval for surgical revascularization given MV CAD by [facility]. Tentative plan for CABG this week.
Continue ASA/high intensity statin
Remains in rate controlled AFib
Continue heparin in place of Eliquis
Discussed with nursing.
Progress Note - Detective Youth Bureau
Subjective
Date of Service: January 24, 2025
No acute overnight events. Patient is resting comfortably in the IVU. No chest discomfort. No shortness of breath.
Objective
Labs:
01/24/25 05:23
01/24/25 05:23
Labs
Hgb 15.9 g/dL (13.0-18.0) 01/24/25 05:23
Hct 45.4 % (39.0-52.0) 01/24/25 05:23
Plt Count 153 10^3/uL (130-400) 01/24/25 05:23
APTT 160.6 Sec (23.4-35.0) H* 01/24/25 05:23
Sodium 139 mmol/L (135-145) 01/24/25 05:23
Potassium 4.2 mmol/L (3.5-5.1) 01/24/25 05:23
BUN 25 mg/dl (9-20) H 01/24/25 05:23
Creatinine 0.9 mg/dL (0.7-1.3) 01/24/25 05:23
Glucose 115 mg/dl (70-99) H 01/24/25 05:23
Vital Signs and I&O:
Vital Signs
Temp Pulse Resp BP Pulse Ox
98 F 59 20 131/73 96
01/24/25 11:36 01/24/25 08:15 01/24/25 11:36 01/24/25 08:04 01/24/25 11:36
Vital Signs
Temp Pulse Resp BP Pulse Ox
98 F 59 20 131/73 96
01/24/25 11:36 01/24/25 08:15 01/24/25 11:36 01/24/25 08:04 01/24/25 11:36
Intake & Output
01/22/25 01/23/25 01/24/25 01/25/25
06:59 06:59 06:59 06:59
Intake Total 300 / 300 550 / 550 240 / 240
Output Total 3300 / 3300 950 / 950 400 / 400 450 / 450
Balance -3000 / -3000 -400 / -400 -400 / -400 -210 / -210
Physical Exam
Physical Exam
Gen: NAD, AA
HEENT: NC/AT, sclera anicteric
Neck: No JVD
CV: Irregularly irregular, NL s1/s2
Lungs: CTAB
Abd: S/ND
Ext: No LE edema
Skin: Warm, dry
Neuro: Non-focal
[2025-01-24 14:01] LABS: APTT 90.9 Sec (23.4-35.0)
[2025-01-24 15:27] VITALS: BP 126/78
[2025-01-24] MEDS: LIPITOR 80 MG PO (16:56)
--- NOTE | 2025-01-24 17:18 | PTCARENOTE ---
Pt OOB in a chair and up in his room. He denies any discomfort. Pt given incentive spirometry instruction and is aware of sternal precautions. Telemetry shows slow atrial fib at a rate @60. Heparin infusion continues, will recheck PTT at 19:30.
[2025-01-24 19:43] VITALS: BP 151/77
[2025-01-24 21:06] LABS: APTT 75.6 Sec (23.4-35.0)
[2025-01-24 22:40] VITALS: BP 141/80
[2025-01-25] VITALS (8 sets, daily range): BP systolic 126–160; BP diastolic 60–84; BMI 36.7
--- NOTE | 2025-01-25 02:30 | PTCARENOTE ---
Pt. has no complaints of pain/discomfort, A-fib (rate down to 30's with sleep) on the monitor. Sat OOB in chair all evening, independent and ambulatory. Right radial cath site assessment WNL. Heparin gtt infusing at 1200 units/hr. Pt. currently
sleeping.
[2025-01-25] MEDS: HEPARIN 25000 UNITS/250 ML IV (03:48)
[2025-01-25 04:10] LABS: Hematocrit 47.8 % (39.0-52.0); Hemoglobin 16.5 g/dL (13.0-18.0); Mean Corp Hgb Conc. 34.5 g/dL (33.0-37.0); Mean Corpuscular Hgb 31.9 pg (27.0-31.0); Mean Corpuscular Volume 92.5 fL (80.0-94.0); Mean Platelet Volume 9.3 fL (7.4-10.4); Platelet Count 155 10^3/uL (130-400); Red Blood Cell Count 5.17 10^6/uL (4.70-6.10); Red Cell Dist. Width 13.1 % (11.5-14.5); White Blood Cell Count 7.2 10^3/uL (4.8-10.8)
[2025-01-25 04:24] LABS: APTT 129.5 Sec (23.4-35.0)
[2025-01-25 04:54] LABS: Blood Urea Nitrogen 25 mg/dl (9-20); Calcium 9.8 mg/dl (8.4-10.2); Carbon Dioxide 30 mmol/L (22-30); Chloride 103 mmol/L (98-107); Estimated Creatinine Clearance 84 ml/min; Glucose 105 mg/dl (70-99); Magnesium 1.9 mg/dl (1.6-2.3); Potassium 4.2 mmol/L (3.5-5.1); Sodium 141 mmol/L (135-145); eGFR > 60.00
--- NOTE | 2025-01-25 05:50 | W.PN.CT ---
Today's Communication / Plan
-
Plan:
-No major issues overnight. Denies CP/SOB
-Cont current medical management per primary team
-Cont. current meds (ASA, Heparin gtt, Lipitor, IV Lasix, Aldactone)
-Avoid SHEILA-I/ARBs/CCB x 48 hrs in preparation for CABG (Entresto d/c'd)
-Avoid preop BB given significant bradycardia
-Ongoing preop workup (carotid u/s today)/medical optimization
-Will d/c heparin gtt regulation supervisor to OR
-Tentatively for CABG +/- MAZE, +/- BRITTA clip, +/- Impella 5.[address] Castillo Friday 01/26
-Will cont. to closely monitor
Assessment / Plan
-
Assessment:
-Severe 3v CAD including 50% tubular LM
-BARRETT
-Ischemic CM(EF 20-25%) per TTE 01/12/25
-HFrEF
-PAFib S/p PVI Jul 2024
-HTN
-Class 2 obesity (BMI 36.7)
-Bradycardia
-Mild TR
-Trace MR
-LE edema
Discussed patient care with: Cardiology, Nursing, Respiratory Therapy, Pharmacy and Care Team
Subjective
-
Date of Service: January 25, 2025
No issues overnight. Denies CP/SOB
Objective Data
-
Lab Results
01/25/25 03:33
01/25/25 03:33
APTT 129.5 Sec (23.4-35.0) H 01/25/25 03:33
Vital Signs
Vital Signs
Temp Pulse Resp BP Pulse Ox
97.7 F 79 16 133/60 99
01/25/25 03:24 01/25/25 03:25 01/25/25 03:24 01/25/25 03:25 01/25/25 03:24
CT Intake/Output/Weight
01/24/25 01/24/25 01/25/25
06:59 18:59 06:59
Intake Total 240 / 720 480 / 720
Output Total 450 / 450
Balance -210 / 270 480 / 270
SaO2: 99 (RA)
Physical Exam
-
General: Awake, Oriented and AOx3
Cardiovascular: Irregular rate & rhythm and No Murmurs
Respiratory: Decreased Breath Sounds (at bases, otherwise clear)
Incision: Clean, Dry, Intact and Dressing Intact
Extremities: No Edema
Data Reviewed
-
Lab Results: Results Reviewed
Medications: Active Meds Reviewed
Chest X-Ray: Report Reviewed and Image Reviewed
ECG: Report Reviewed and Image Reviewed
[2025-01-25] MEDS: LASIX 40 MG IV ×2 (08:18→17:09)
[2025-01-25] MEDS: ALDACTONE 25 MG PO (08:18)
[2025-01-25] MEDS: LOW STRENGTH ASPIRIN 81 MG PO (08:18)
[2025-01-25] MEDS: PROTONIX 40 MG PO (08:18)
--- NOTE | 2025-01-25 08:30 | PTCARENOTE ---
Assumed care at 0700. Patient AO x3, SR, VSS, denies pain or shortness of breath. Lings CTA. Heparin gtt at 1100 units/hr. Voiding in the light yellow urine in the urinal at bedside. NPO heart cath today
--- NOTE | 2025-01-25 08:40 | PTCARENOTE ---
Assumed care. Patient sleeping on his side. VSS, A-fib HR 35, irregular. Trace ankle edema. Right radial and right brachial cath sites healing and open to air. Plan of care reviewed, Heparin infusing at 1100 units/hr, call villafuerte in reach
--- NOTE | 2025-01-25 09:36 | W.PN.CARDCBS ---
Addendum entered and electronically signed by Maddy Ordonez PA-C 01/25/25 12:33:
patient has acute on chronic heart failure now with worsening ejection fraction this admission
Original Note:
Today's Communication / Plan
-
Cont IV diuresis
For CABG this week
Impression / Plan
-
Vibrator Equipment Tester: Dr Simmons / Dr Zayas
Impression:
MVCAD for CABG eval
Ischemic CM EF 20-25%
HFrEF
PAFib hx PVI Jul 2024
HTN
Bradycardia
Cath Jan 21 2025:
INDICATION: This is a 79-year-old gentleman with a past medical history notable for hypertension, atrial fibrillation, and dilated cardiomyopathy with recent worsening in LVEF. He underwent pulmonary vein isolation in July 2024 and experienced
a recent worsening in symptoms of exertional dyspnea as well as development of lower extremity edema. A recent echocardiogram was notable for worsening in LVEF and he is now referred for coronary angiography. He denies any chest discomfort but
does report a significant change in functional capacity with dyspnea occurring at very low levels of exertion.
HEMODYNAMICS : mmHg
RA (m) : 25
RV (s/d) : 87/13, 22
PA (s/d, m) : 91/33, 48
PCWP (m) : 40
AO (s/d, m) : 156/72, 103
LV (s/d) : 167/24
LVEDP : 35
Estimated Ladan Cardiac Output: 5.6 L / min and Cardiac Index: 2.2 L/ min / m-2
Systemic vascular resistance: 13.9 Wood units or 1114 gsjes-kea-gi(-5)
Pulmonary vascular resistance: 1.4 Wood units or 114 bdbvw-mco-ol(-5)
CORONARY FINDINGS :
Dominance: Right
LEFT MAIN: Tubular 50% stenosis
LEFT ANTERIOR DESCENDING: The LAD arises normally from the left main and has a complex proximal 95% stenosis involving the origin of a large first diagonal branch. The mid to distal LAD has minor irregularities.
CIRCUMFLEX: The circumflex is a large-caliber nondominant vessel with a 95% proximal stenosis. The circumflex supplies a single large bifurcating obtuse marginal branch.
RIGHT CORONARY ARTERY: The right coronary artery is occluded proximally with bridging collaterals and right to right collaterals as well as iloi-il-ydegz collaterals from circumflex and LAD
VENTRICULOGRAPHY: Left ventriculography ejection fraction is visually estimated at 20-25%
CONCLUSIONS
1. Multivessel coronary artery disease involving proximal LAD, large diagonal branch, proximal circumflex, and total occlusion of the RCA which is collateralized in a right to right and bpir-kl-ahkse fashion
2. LV dysfunction with elevated right and left ventricular filling pressures. Reasonable cardiac output and cardiac index
RECOMMENDATIONS
1. Patient will be admitted and undergo diuresis.
2. Consult CT surgery to consider coronary artery bypass grafting with targets to LAD, diagonal, OM, and PDA/PLB, left atrial appendage ligation +/- MAZE
3. Significant LV dysfunction on good medical therapy. Cannot add oral beta maude given significant underlying bradycardia
Echo Jan 12 2025: Dilated cardiomyopathy with severely reduced left ventricular systolic function , EF 20-25%, Enlarged right ventricle with overall preserved RV systolic functio, Biatrial dilatation, Mild tricuspid regurgitation, PASP 68 mmHg,
AFib with slow response.
Outside echo January 2024: EF 45%, RALEIGH 6.1cm, mild to mod TR, RV dilated
Plan:
PCWP significantly elevated based on invasive hemodynamics 01/21/25
Continue IV diuresis. Is and Os remain negative
Wt down over 10 lbs
HR and bp remain stable
Cont aldactone
No beta maude due to bradycardia
Entresto on hold prior to OR
CTS eval for surgical revascularization given MV CAD by [facility]. Tentative plan for CABG this week.
Continue ASA/high intensity statin
Remains in rate controlled AFib
Continue heparin in place of Eliquis
Discussed with nursing.
Progress Note - Vibrator Equipment Tester
Subjective
Date of Service: January 25, 2025
Pt seen and examined. No cp or dyspnea.
Objective
Labs:
01/25/25 03:33
01/25/25 03:33
Labs
Hgb 16.5 g/dL (13.0-18.0) 01/25/25 03:33
Hct 47.8 % (39.0-52.0) 01/25/25 03:33
Plt Count 155 10^3/uL (130-400) 01/25/25 03:33
APTT 129.5 Sec (23.4-35.0) H 01/25/25 03:33
Sodium 141 mmol/L (135-145) 01/25/25 03:33
Potassium 4.2 mmol/L (3.5-5.1) 01/25/25 03:33
BUN 25 mg/dl (9-20) H 01/25/25 03:33
Creatinine 1.0 mg/dL (0.7-1.3) 01/25/25 03:33
Glucose 105 mg/dl (70-99) H 01/25/25 03:33
Vital Signs and I&O:
Vital Signs
Temp Pulse Resp BP Pulse Ox
97.6 F 69 16 126/62 100
01/25/25 07:33 01/25/25 08:00 01/25/25 07:33 01/25/25 07:37 01/25/25 07:33
Vital Signs
Temp Pulse Resp BP Pulse Ox
97.6 F 69 16 126/62 100
01/25/25 07:33 01/25/25 08:00 01/25/25 07:33 01/25/25 07:37 01/25/25 07:33
Intake & Output
01/23/25 01/24/25 01/25/25 01/26/25
06:59 06:59 06:59 06:59
Intake Total 550 / 550 720 / 720
Output Total 950 / 950 400 / 400 450 / 450
Balance -400 / -400 -400 / -400 270 / 270
Physical Exam
Physical Exam
General: No acute distress, AAOX3
Neck: Negative JVD
Heart: Irregularly irregular, Negative S3 positive S1/S2, Negative S4, No murmur
Lungs: CTA b/l, negative wheezes/rales/rhonchi
Abd: Positive BS, NT/ND, neg rebound/rigidity/guarding
Ext: Negative cyanosis/clubbing/edema
Neuro: nonfocal
--- NOTE | 2025-01-25 10:34 | PN.CDI ---
CDI
- -
CDI:
Physician Documentation Request
Admit Date: 01/21/25 10:45
Dear Cardiology,
Please review the following and provide your response in the progress notes.
Clinical Indicators:
Pt admitted for cardiac catheterization and MVCAD for CABG evaluation.
01/25 Progress Note: 'He underwent pulmonary vein isolation in July 2024 and experienced a recent worsening in symptoms of exertional dyspnea as well as development of lower extremity edema. A recent echocardiogram was notable for worsening in
LVEF and he is now referred for coronary angiography. He denies any chest discomfort but does report a significant change in functional capacity with dyspnea occurring at very low levels of exertion.
Impression: MVCAD for CABG eval
Ischemic CM EF 20-25%
HFrEF'
'RECOMMENDATIONS
1. Patient will be admitted and undergo diuresis.'
Clarify which of the following accurately represents the acuity of the HFrEF. Possible options might include:
Acute
Acute on Chronic
Chronic
Other
Use of terms such as suspected, likely, concern for, or probable (associated with a specific diagnosis that is being evaluated, monitored, or treated as if it exists) are acceptable and can be coded in the inpatient setting, when documented at the
time of discharge.
Thank you,
Rosie Bruno RN, BSN
CDI Specialist
[place] [facility]
Please use your independent medical judgment in providing your response.
[2025-01-25 10:39] LABS: INR 1.06; PT 14.1 Sec (11.4-14.6)
[2025-01-25 12:17] LABS: APTT 79.8 Sec (23.4-35.0)
--- NOTE | 2025-01-25 13:09 | CM ---
Reviewed chart. Met with Mr. Doyle to review discharge plans. He states prior to admission he resides with his daughter in a three story home with two steps to enter. His daughter is staying with him until February 06, 2025 then she will be
returning to [place]. He states he has a full flight of steps to get to bedroom/full bathroom. He states he has a powder room on the first floor but it is not working at this time. He states prior to admission he was independent with ambulation
and adls. He states he does not have any DME in the home. He states he has a prescription plan and uses [facility]. Medical work-up in progress. The discharge plan is to return home with a home visit by the Transitional Care Nurse when
medically stable.
We reviewed pre-op and post-op routines. We briefly reviewed the shower instructions. Gave him the Cardiothoracic Surgery Educational Booklet. We reviewed restrictions including sternal precautions and driving restrictions. We also discussed a
home visit by the Transitional Care Nurse. He was agreeable to a home visit. The plan is for CABG on Friday01/26/25.
--- NOTE | 2025-01-25 16:39 | W.PN.UPDATE ---
Update Note
Progress Note Update
Consent obtained. pre-op orders in place. patient is scheduled for CABG tomorrow with Dr. Castillo
Procedure Type:�Isolated CABG
Perioperative Outcome Estimate %
Operative Mortality 7.54%
Morbidity & Mortality 19.9%
Stroke 1%
Renal Failure 2.86%
Reoperation 4.19%
Prolonged Ventilation 15.2%
Deep Sternal Wound Infection 0.248%
Long Hospital Stay (>14 days) 15%
Short Hospital Stay (<6 days)* 13.9%
Clinical Summary
Planned Surgery: Isolated CABG, Urgent, First cardiovascular surgery
Demographics: 79 year old, male, 129kg, 184cm, BMI: 38.1 kg/m�
Lab Values: Creatinine: 0.8 mg/dL, Hematocrit: 47.8%, WBC Count: 7.2 10�/�L, Platelet Count: 893574 cells/�L
Substance Abuse: Never smoker, Alcohol use: <=1 drink/week
Risk Factors / Comorbidities: Hypertension
Cardiac Status: Chronic heart failure, Ejection Fraction = 20%
Coronary Artery Disease: 3 vessels diseased, Left Main Stenosis >=50%, Proximal LAD Stenosis >=70%, Other, ID: > 21 Days
Valve Disease: Trivial/Trace MR, Mild TR
Arrhythmia: Recent A-fib, Persistent
[2025-01-25] MEDS: LIPITOR 80 MG PO (17:09)
[2025-01-25 17:41] LABS: APTT 84.4 Sec (23.4-35.0)
--- NOTE | 2025-01-25 19:15 | PTCARENOTE ---
Report given, patient transferred to room 9350
--- NOTE | 2025-01-25 22:37 | PTCARENOTE ---
Patient with MVCAD transferred from IVU to CVIUC for pre op GABG Maze and Left Clip, with Impella support. S/P Right Cath with right radial and brachial sites open to air. Heparin running at 1100 units/hr in L A/C, Patient is Bradycardic 40-50's
asymptomatic in A Fib. Patient Alert and oriented , denies pain, VVS, Afebrile, Pulses palpable throughout. Bilateral Lung sound clear on room air, Bowels sounds present, voids without issue, clear yellow. Ambulating in room. Prep with first CHG
bath, clipped. New gown, and linens changed. Patient has oral care completed, and educated on NPO status as of Midnight. Skin abnormality on sacral region; small rash like lesions healed,, patient denies pain in area. See worklist for Full Nursing
assessment and details.
[2025-01-26] VITALS (11 sets, daily range): BP systolic 97–140; BP diastolic 61–87; BMI 36.3
--- NOTE | 2025-01-26 00:16 | PTCARENOTE ---
No changes to assessment, Vital signs remain stable. Patient in A fib, heart rate 30's. Heparin infusion maintained, Call villafuerte within reach.
--- NOTE | 2025-01-26 04:43 | PTCARENOTE ---
Patient VVS, Labs drawn , second CHG bath completed, Linens changed, patient ambulated in room and voided, clear yellow urine.
[2025-01-26 04:46] LABS: APTT 128.2 Sec (23.4-35.0)
[2025-01-26 05:31] LABS: Blood Urea Nitrogen 26 mg/dl (9-20); Calcium 9.8 mg/dl (8.4-10.2); Carbon Dioxide 26 mmol/L (22-30); Chloride 103 mmol/L (98-107); Estimated Creatinine Clearance 83 ml/min; Glucose 112 mg/dl (70-99); Magnesium 1.9 mg/dl (1.6-2.3); Potassium 4.2 mmol/L (3.5-5.1); Sodium 140 mmol/L (135-145); eGFR > 60.00
--- NOTE | 2025-01-26 05:58 | W.PN.UPDATE ---
Update Note
Progress Note Update
AM dose of BB contraindicated and not administered d/t HR 30-50's
[2025-01-26] MEDS: BACTROBAN 2% OINTMENT 1 APPLIC NASAL ×2 (06:12→19:28)
[2025-01-26] MEDS: PROTONIX 40 MG PO (06:12)
--- NOTE | 2025-01-26 06:12 | W.CVOR.SURPR ---
CVOR Surgeon Immed Pre Op
-
CARDIAC SURGERY ATTENDING:
I have examined this patient prior to performance of the scheduled procedure.
The patient's condition is unchanged from the time of the dictated/written History and
Physical and the patient is able to undergo the scheduled procedure.
It was my pleasure to meet with Mr. Sunny Lambert on multiple occasions including this morning. He is a very pleasant 79-year-old gentleman with severe multivessel CAD and significantly reduced LVEF at approximately 20%. Given the pattern of his
coronary disease, he would benefit from surgical coronary revascularization. I anticipate CHENCHO to LAD, greater saphenous vein to OM, potential greater saphenous vein to D1, potential greater saphenous vein to RPDA/PLB. Given his history of atrial
fibrillation I will include concurrent encompass ablation procedure and exclusion of his left atrial appendage. Given his significantly reduced LVEF I will plan for elective Impella 5.5 placement for periprocedural support. I discussed my
operative recommendations with Mr. Lambert and his friend/family. The patient is agreeable to proceed. Informed consent has been obtained. We reviewed the perioperative risks (including, but not limited to, , stroke, NE, arrhythmia, PPM
requirement, PNA, YAIR/F, bleeding, and infection), discussed the expected in-hospital postprocedural course, and reviewed the expected outpatient recovery. All questions have been answered to the best of my abilities.
Thank you for the opportunity to participate in the care of this kind gentleman.
Joseph Castillo MD
[phone]
[2025-01-26] MEDS: MAGNESIUM OXIDE 500 MG PO (06:13)
[2025-01-26 07:23] LABS: ACT+ - POC 134 Seconds (82-134)
[2025-01-26 07:44] LABS: Urine Albumin 2+ (Neg - Trace); Urine Bilirubin Negative (Negative); Urine Character Cloudy (Clear); Urine Color Yellow; Urine Glucose Negative (Negative); Urine Ketone Negative (Negative); Urine Leukocyte 3+ (Negative); Urine Nitrite Negative (Negative); Urine Occult Blood 4+ (Negative); Urine Specific Gravity 1.025 (<1.030); Urine Urobilinogen Negative (Neg - 1+)
[2025-01-26 08:07] LABS: Urine Mucus Few
[2025-01-26 08:08] LABS: Urine Bacteria Few (Negative); Urine Red Blood Cell 40-50 /HPF (0-2); Urine Squamous Cell 0-2 /LPF (Few); Urine White Cell 16-20 /HPF (0-5)
[2025-01-26 09:46] LABS: B.E. - POC 3.4 mmol/L; Glucose - POC 114 mg/dl (70-99); HCO3 - POC 29 mmol/L (21-28); Hematocrit - POC 45 % PCV (42-52); Hemodilution- POC No; Hemoglobin Calculated - POC 15.4; Ionized Calcium - POC 1.18 mmol/L (1.15-1.33); Lactate - POC 0.64 mmol/L (0.36-0.75); O2 Saturation %Calculated-POC 99.5 % (94-98); PCO2 - POC 45 mmHg (35-48); PO2 - POC 164 mmHg (83-108); Potassium - POC 3.7 mmol/L (3.5-5.1); Sodium - POC 139 mmol/L (136-145); Specimen Type - POC Arterial; pH - POC 7.41 (7.35-7.45)
[2025-01-26 09:55] LABS: ACT+ - POC 511 Seconds (82-134)
[2025-01-26 10:20] LABS: ACT+ - POC 511 Seconds (82-134)
[2025-01-26 10:43] LABS: ACT+ - POC 473 Seconds (82-134)
[2025-01-26 10:54] LABS: ACT+ - POC 539 Seconds (82-134)
[2025-01-26 10:58] LABS: B.E. - POC 7.9 mmol/L; Glucose - POC 122 mg/dl (70-99); HCO3 - POC 34 mmol/L (21-28); Hematocrit - POC 37 % PCV (42-52); Hemodilution- POC Yes; Hemoglobin Calculated - POC 12.6; Ionized Calcium - POC 1.08 mmol/L (1.15-1.33); Lactate - POC < 0.30 mmol/L (0.36-0.75); PCO2 - POC 50 mmHg (35-48); PO2 - POC 558 mmHg (83-108); POC Comment CPB; Potassium - POC 4.5 mmol/L (3.5-5.1); Sodium - POC 140 mmol/L (136-145); Specimen Type - POC Arterial; pH - POC 7.44 (7.35-7.45)
[2025-01-26 10:58] LABS: B.E. - POC 2.1 mmol/L; Glucose - POC 133 mg/dl (70-99); HCO3 - POC 27 mmol/L (21-28); Hematocrit - POC 41 % PCV (42-52); Hemodilution- POC No; Hemoglobin Calculated - POC 14.1; Ionized Calcium - POC 1.14 mmol/L (1.15-1.33); Lactate - POC < 0.30 mmol/L (0.36-0.75); O2 Saturation %Calculated-POC 99.9 % (94-98); PCO2 - POC 41 mmHg (35-48); PO2 - POC 294 mmHg (83-108); POC Comment POST HEPARIN; Potassium - POC 4.2 mmol/L (3.5-5.1); Sodium - POC 138 mmol/L (136-145); Specimen Type - POC Arterial; pH - POC 7.43 (7.35-7.45)
[2025-01-26 11:14] LABS: ACT+ - POC 551 Seconds (82-134)
[2025-01-26 11:41] LABS: B.E. - POC 4.5 mmol/L; Glucose - POC 140 mg/dl (70-99); HCO3 - POC 29 mmol/L (21-28); Hematocrit - POC 39 % PCV (42-52); Hemodilution- POC Yes; Hemoglobin Calculated - POC 13.1; Ionized Calcium - POC 1.07 mmol/L (1.15-1.33); Lactate - POC < 0.30 mmol/L (0.36-0.75); PCO2 - POC 42 mmHg (35-48); PO2 - POC 449 mmHg (83-108); POC Comment CPB; Potassium - POC 4.9 mmol/L (3.5-5.1); Sodium - POC 139 mmol/L (136-145); Specimen Type - POC Arterial; pH - POC 7.45 (7.35-7.45)
[2025-01-26 11:41] LABS: ACT+ - POC 481 Seconds (82-134)
[2025-01-26 11:41] LABS: B.E. - POC 5.4 mmol/L; Glucose - POC 139 mg/dl (70-99); HCO3 - POC 30 mmol/L (21-28); Hematocrit - POC 38 % PCV (42-52); Hemodilution- POC Yes; Ionized Calcium - POC 1.12 mmol/L (1.15-1.33); Lactate - POC < 0.30 mmol/L (0.36-0.75); PCO2 - POC 44 mmHg (35-48); PO2 - POC 412 mmHg (83-108); POC Comment CPB; Potassium - POC 4.1 mmol/L (3.5-5.1); Sodium - POC 139 mmol/L (136-145); Specimen Type - POC Arterial; pH - POC 7.45 (7.35-7.45)
[2025-01-26 11:54] LABS: ACT+ - POC 610 Seconds (82-134)
[2025-01-26 12:07] LABS: B.E. - POC 4.1 mmol/L; Glucose - POC 150 mg/dl (70-99); HCO3 - POC 28 mmol/L (21-28); Hematocrit - POC 36 % PCV (42-52); Hemodilution- POC Yes; Hemoglobin Calculated - POC 12.4; Ionized Calcium - POC 1.07 mmol/L (1.15-1.33); Lactate - POC < 0.30 mmol/L (0.36-0.75); PCO2 - POC 40 mmHg (35-48); PO2 - POC 379 mmHg (83-108); POC Comment CPB; Potassium - POC 4.7 mmol/L (3.5-5.1); Sodium - POC 138 mmol/L (136-145); Specimen Type - POC Arterial; pH - POC 7.46 (7.35-7.45)
[2025-01-26 12:10] LABS: ACT+ - POC 530 Seconds (82-134)
[2025-01-26] MEDS: LOW STRENGTH ASPIRIN PO (12:15)
[2025-01-26] MEDS: PROTONIX PO (12:15)
[2025-01-26 12:26] LABS: B.E. - POC 2.5 mmol/L; Glucose - POC 139 mg/dl (70-99); HCO3 - POC 27 mmol/L (21-28); Hematocrit - POC 38 % PCV (42-52); Hemodilution- POC Yes; Hemoglobin Calculated - POC 12.9; Ionized Calcium - POC 1.03 mmol/L (1.15-1.33); Lactate - POC 0.62 mmol/L (0.36-0.75); O2 Saturation %Calculated-POC 99.9 % (94-98); PCO2 - POC 42 mmHg (35-48); PO2 - POC 336 mmHg (83-108); POC Comment CPB; Potassium - POC 4.9 mmol/L (3.5-5.1); Sodium - POC 142 mmol/L (136-145); Specimen Type - POC Arterial; pH - POC 7.42 (7.35-7.45)
[2025-01-26 12:36] LABS: ACT+ - POC 558 Seconds (82-134)
[2025-01-26 12:49] LABS: B.E. - POC 1.6 mmol/L; Glucose - POC 149 mg/dl (70-99); HCO3 - POC 27 mmol/L (21-28); Hematocrit - POC 38 % PCV (42-52); Hemodilution- POC Yes; Lactate - POC 2.04 mmol/L (0.36-0.75); O2 Saturation %Calculated-POC 99.9 % (94-98); PCO2 - POC 46 mmHg (35-48); PO2 - POC 301 mmHg (83-108); POC Comment CPB; Potassium - POC 3.9 mmol/L (3.5-5.1); Sodium - POC 142 mmol/L (136-145); Specimen Type - POC Arterial; pH - POC 7.38 (7.35-7.45)
[2025-01-26 13:00] LABS: ACT+ - POC 584 Seconds (82-134)
[2025-01-26 13:16] LABS: B.E. - POC 0.9 mmol/L; Glucose - POC 204 mg/dl (70-99); HCO3 - POC 26 mmol/L (21-28); Hematocrit - POC 37 % PCV (42-52); Hemodilution- POC Yes; Hemoglobin Calculated - POC 12.7; Ionized Calcium - POC 1.09 mmol/L (1.15-1.33); Lactate - POC 2.77 mmol/L (0.36-0.75); PCO2 - POC 44 mmHg (35-48); PO2 - POC 373 mmHg (83-108); POC Comment WARM; Potassium - POC 3.4 mmol/L (3.5-5.1); Sodium - POC 141 mmol/L (136-145); Specimen Type - POC Arterial; pH - POC 7.38 (7.35-7.45)
[2025-01-26 13:20] LABS: ACT+ - POC 504 Seconds (82-134)
[2025-01-26 13:38] LABS: ACT+ - POC 509 Seconds (82-134)
[2025-01-26 15:12] LABS: B.E. - POC -4.8 mmol/L; Blood Urea Nitrogen - POC 22 mg/dl (3-120); Chloride - POC 104 mmol/L (96-111); Creatinine - POC 1.02 mg/dl (0.3-1.0); Glucose - POC 193 mg/dl (70-99); HCO3 - POC 23 mmol/L (21-28); Hematocrit - POC 38 % PCV (42-52); Hemodilution- POC Yes; Hemoglobin Calculated - POC 12.8; Ionized Calcium - POC 1.11 mmol/L (1.15-1.33); Lactate - POC 5.78 mmol/L (0.36-0.75); O2 Saturation %Calculated-POC 95.5 % (94-98); PCO2 - POC 53 mmHg (35-48); PO2 - POC 92 mmHg (83-108); Sodium - POC 142 mmol/L (136-145); Specimen Type - POC Arterial; pH - POC 7.25 (7.35-7.45)
[2025-01-26] MEDS: KCL 50 IV ×4 (15:25→22:24)
[2025-01-26] MEDS: CALCIUM GLUCONATE 100 IV (15:25)
[2025-01-26] MEDS: LR 250 ML IV ×5 (15:26→18:37)
--- NOTE | 2025-01-26 15:29 | DOWNTIME ---
There was a Exchangery Client Disabilities Caregiver Downtime on 01/26/2025 from 1230 to 01/26/2025 at 1550. Downtime documentation of patient's care, including medication administrations, has been reconciled in the electronic record per guidelines. Refer to the
patient's paper chart under the miscellaneous tab to see printed paper medication records and downtime forms.
[2025-01-26 15:33] LABS: B.E. - POC -0.7 mmol/L; Glucose - POC 178 mg/dl (70-99); HCO3 - POC 26 mmol/L (21-28); Hematocrit - POC 35 % PCV (42-52); Hemodilution- POC Yes; Ionized Calcium - POC 1.22 mmol/L (1.15-1.33); PCO2 - POC 51 mmHg (35-48); PO2 - POC 412 mmHg (83-108); Potassium - POC 2.9 mmol/L (3.5-5.1); Sodium - POC 141 mmol/L (136-145); Specimen Type - POC Arterial; pH - POC 7.32 (7.35-7.45)
[2025-01-26 15:33] LABS: B.E. - POC -0.1 mmol/L; Glucose - POC 196 mg/dl (70-99); HCO3 - POC 25 mmol/L (21-28); Hematocrit - POC 36 % PCV (42-52); Hemodilution- POC Yes; Hemoglobin Calculated - POC 12.3; Ionized Calcium - POC 1.06 mmol/L (1.15-1.33); PCO2 - POC 40 mmHg (35-48); PO2 - POC 364 mmHg (83-108); POC Comment WARM; Potassium - POC 3.6 mmol/L (3.5-5.1); Sodium - POC 139 mmol/L (136-145); Specimen Type - POC Arterial
[2025-01-26 15:35] LABS: ACT+ - POC 137 Seconds (82-134)
--- NOTE | 2025-01-26 16:03 | CM ---
Chart reviewed. Patient is in the OR today. Patient is independent of ADLS, lives with his daughter in a 3 [address], with mostly on 1st and 2nd floor, 2 MARILEE, 0 DME. Plan is for the patient to return home with CT Transitional RN. CM to follow
[2025-01-26 16:06] LABS: B.E. - POC -4.6 mmol/L; Blood Urea Nitrogen - POC 21 mg/dl (3-120); Chloride - POC 103 mmol/L (96-111); Glucose - POC 220 mg/dl (70-99); HCO3 - POC 22 mmol/L (21-28); Hematocrit - POC 38 % PCV (42-52); Hemodilution- POC Yes; Hemoglobin Calculated - POC 12.9; Ionized Calcium - POC 1.12 mmol/L (1.15-1.33); Lactate - POC 5.81 mmol/L (0.36-0.75); O2 Saturation %Calculated-POC 96.6 % (94-98); PCO2 - POC 44 mmHg (35-48); PO2 - POC 96 mmHg (83-108); Potassium - POC 3.3 mmol/L (3.5-5.1); Sodium - POC 140 mmol/L (136-145); Specimen Type - POC Arterial
--- NOTE | 2025-01-26 16:08 | CON.INTV ---
Consultation
Consultation Request
Date/Time Consultation Requested: 01/26/2025 - 155
Date/Time Consultation Performed: 01/26/2025 - 1602
Requesting Provider: NISH Correa
Performing Provider: Dr. Vee
Reason for Consultation: s/p CABG with Impella insertion
Medical History
-
Chief Complaint: Elective CABG
History of Present Illness:
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
apnea, aortic atherosclerosis, dyslipidemia, and prediabetes who presents for heart catheterization. Left and right heart catheterization performed 01/21/2025 showed postcapillary pulm hypertension with an elevated wedge of 40, LVEDP 35, CO 5.6, CI
2.2, PVR 1.4 and SVR 13.9 Wood units. LHC showed multivessel CAD involving proximal LAD, large diagonal branch, proximal circumflex, and total occlusion of the RCA which is collateralized in a right to right and zdjm-yw-[id number] fashion. CT surgery
consulted. Patient underwent a CABG x 4 today with Impella inserted and postoperatively was transferred to the CVICU with shake backboard notcher services consulted for additional management/recommendations.
When I saw the patient, he had just rolled out of the CV OR to the CVICU. Currently intubated on SIMV at 14/600/40%/5, PSV: 5. PIP 25 cmH2O with VTe 571 cc and breathing at 14 breaths/minute. Heart rate 74, BP 115/60, and saturating 95%. PAP
58/28. Currently on epinephrine at 4 mcg/min, Levophed at 6 mcg/min, sedated with Precedex 0.5 mcg/kg/hr and insulin drip at 1 unit/hr. Chest tubes x [address] Impella was on P6 with cardiac output 5, and then changed to P4 with output lowered
to 4.
PMHx: Multivessel CAD, A-fib on Eliquis, cardiomegaly, obesity chronic HFrEF, bradycardia (slow A-fib), hypertension, pulmonary hypertension, suspected sleep apnea, aortic atherosclerosis, dyslipidemia, prediabetes
PSHx: Ablation
Past Medical History
Past Medical History: Other (Above as per HPI)
Past Surgical History: Other (Above as per HPI)
Social History
Tobacco: Non-smoker
Alcohol: None
Drug: None
Family History
Family History: CAD (Father) and Other (Father: Asbestosis)
Allergies / Home Medications
Allergies
Allergy/AdvReac Type Severity Reaction Status Date / Time
No Known Allergies Allergy Verified 01/21/25 06:41
Home Medications
�Medication �Instructions �Recorded �Confirmed �Last Taken �Type
apixaban 5 mg tablet (Eliquis) 5 mg PO BID Blood Clot 06/28/24 01/21/25 01/19/25 08:00 History
Prevention/Tx
furosemide 20 mg tablet 20 mg PO DAILY Fluid 06/28/24 01/21/25 01/20/25 08:00 History
Retention/Swelling
spironolactone 25 mg tablet 25 mg PO DAILY Heart 06/28/24 01/21/25 01/20/25 08:00 History
Disease/Condition
atorvastatin 20 mg tablet (Lipitor) 20 mg PO DAILY High Cholesterol 01/21/25 01/21/25 01/20/25 08:00 History
sacubitril 24 mg-valsartan 26 mg 1 tab PO BID Heart 01/21/25 01/21/25 01/20/25 08:00 History
tablet (Entresto) Disease/Condition
Review of Systems
-
Unable to Obtain full review of systems at this time due to: Patient Intubation
Vitals / Labs / Diagnostic Testing
Vital Signs
Temp Pulse Resp BP Pulse Ox
97.1 F 77 14 114/63 98
01/26/25 16:00 01/26/25 15:50 01/26/25 16:00 01/26/25 15:49 01/26/25 16:00
Laboratory Results
01/25/25 01/26/25
17:22 04:16
APTT 84.4 H 128.2 H
Diagnostic Testing:
Physical Exam
-
HEENT: Normocephalic, Anicteric and Other (ETT in place)
Cardiovascular: S1/S2 and Peripheral Edema (negative)
Respiratory: Wheeze (negative), Rhonchi (negative), Other (Mechanical breath sounds heard bilaterally) and Other (Bilateral pleural chest tubes + mediastinal chest tubes x 2)
GI: Soft, Non Distended, Non Tender and Normal Bowel Sounds
Neurology: Tremors (negative) and Other (Sedated)
Skin: Warm and Dry
General: Respiratory Distress (negative), Comfortable, Chills (negative) and Sweats (negative)
Assessment
-
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
suspected sleep apnea, aortic atherosclerosis, dyslipidemia, and prediabetes who presents for heart catheterization. Left and right heart catheterization performed 01/21/2025 showed postcapillary pulm hypertension with an elevated wedge of 40, LVEDP
35, CO 5.6, CI 2.2, PVR 1.4 and SVR 13.9 Wood units. LHC showed multivessel CAD involving proximal LAD, large diagonal branch, proximal circumflex, and total occlusion of the RCA which is collateralized in a right to right and [id number]
fashion. CT surgery consulted. Patient underwent a CABG x 4 on 01/26/2025 with Impella inserted and postoperatively was transferred to the CVICU with shake backboard notcher services consulted for additional management/recommendations.
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
Impression:
#Multivessel CAD involving proximal LAD s/p CABG x 4 with Impella inserted (POD #0)
#Abnormal urinalysis with +3 leukocyte esterase, +16�20 urine WBC suspicious for UTI
#Hyperglycemia
#Hypokalemia
#Hypocalcemia
#Lactic acidosis
#Chronic HFrEF with RV enlargement (per TTE from 01/12/2025)
#Post�capillary pulmonary hypertension (moderate severity with mPAP 52mmHg with PCWP: 40, TP and CO/CI: 5.6, 2.2 and PVR: 1.4 RUIZ via RHC on 01/21/2025)
Plan:
Ventilator settings reviewed
FiO2 will be weaned to maintain SpO2 >90-94%
Minute ventilation will be adjusted
Arterial blood gases will be monitored
Spontaneous breathing trial will be attempted with hopeful extubation after anesthesia/sedation wear off
prn nebulized bronchodilators - not currently bronchospastic
Pulmonary artery catheter parameters will be followed
Pressors/antihypertensive/inotropes/diuretics will be provided as needed
Maintain MAP>65
Replete electrolytes with K>4, Mg>2
Continue Impella support which is currently on P4 with cardiac output 4 at 0.6 W
Monitor chest tube output
Monitor hemoglobin
Monitor platelet count and coags
Transfuse blood products as needed to maintain Hb>7g/dL, plt>50k (given post-operative status)
CT surgery managing chest tubes
Monitor blood sugar to maintain euglycemia with goal BG 110-140
Insulin drip per protocol
Aspiration precautions
VAP prevention protocol
DVT prophylaxis
Early nutrition
Early mobilization
Critical care statement: A total of 46 minutes of critical care time was provided for this patient today. This includes management of ventilator, spontaneous breathing trial, arterial blood gases, pressors, of unstable vital signs, evaluation of the
patient at bedside, reviewing the patient's pertinent medical records including radiographs, microbiology, laboratory evaluations, and discussion with primary team and critical care nursing.
--- NOTE | 2025-01-26 16:10 | W.PN.CARDCBS ---
Addendum entered and electronically signed by Shruti Macedo MD 01/26/25 17:17:
I saw and examined the patient.
The Pharmacy Clerk's note was reviewed and I agree with the note.
Comment:
Patient is status post CABG x 4, maze, left atrial appendage clip, placement of an Impella 5.[address] Joseph Castillo on January 26, 2025, postop day 0
Patient had ischemic cardiomyopathy with LVEF of 20 to 25% preoperatively.
On exam patient is intubated and sedated with [place]-Iram catheter via right IJ access, chest tubes are in place, sternotomy wound is dressed, clean, dry and intact, normal S1 and S2, soft pericardial rub, lungs are clear to auscultation anteriorly,
chest tubes are in place, abdomen is obese, soft, nontender, nondistended with active bowel sounds, warm extremities with trace edema
Blood pressure by arterial line is 101/59, MAP of 70, PA pressure of 49/22, RA pressure of 9, cardiac output of 4.63, cardiac index of 1.89, systemic vascular resistance of 1071. Mixed venous saturation is pending.
Impella 5.5 device is at P4 level with a cardiac output of 2.6 to 2.7 L/min, cardiac power output of 0.6
Patient is on 6 of Levophed and 4 of epinephrine
Hematuria noted to do Serna catheter which was present before Impella placement.
Recommendations:
1. Wean ventilator as tolerated.
2. Wean pressors as tolerated, potentially may need higher Impella support depending on RV function and SVR given existing ischemic cardiomyopathy.
3. Close monitoring of hematuria and LDH levels to ensure no evidence of hemolysis from Impella device. Consideration for transthoracic echocardiogram given ANNA probe could not be passed intraoperatively to assess Impella placement.
4. Eventual goal-directed medical therapy and oral anticoagulation for paroxysmal atrial fibrillation with prior PVI in July 2024.
5. Continue postoperative supportive care.
Discussed all of the above with nursing at bedside as well as CT surgery PA's.
Shruti aMcedo MD, [facility], FSCAI
Original Note:
Today's Communication / Plan
-
continue post op care, impella mgmt
follow hematuria
eventual GDMT and OAC
Impression / Plan
-
Pegger: Dr. Zayas
Primary EP: Dr. Troy Fleming
Impression:
s/p CABG x4, MAZE, BRITTA clip, placement of impella 01/03
MVCAD by cath 01/21/25
Ischemic CM EF 20-25%
HFrEF
PAFib hx PVI Jul 2024
HTN
Bradycardia
Cath Jan 21 2025:
INDICATION: This is a 79-year-old gentleman with a past medical history notable for hypertension, atrial fibrillation, and dilated cardiomyopathy with recent worsening in LVEF. He underwent pulmonary vein isolation in July 2024 and experienced
a recent worsening in symptoms of exertional dyspnea as well as development of lower extremity edema. A recent echocardiogram was notable for worsening in LVEF and he is now referred for coronary angiography. He denies any chest discomfort but
does report a significant change in functional capacity with dyspnea occurring at very low levels of exertion.
HEMODYNAMICS : mmHg
RA (m) : 25
RV (s/d) : 87/13, 22
PA (s/d, m) : 91/33, 48
PCWP (m) : 40
AO (s/d, m) : 156/72, 103
LV (s/d) : 167/24
LVEDP : 35
Estimated [place] Cardiac Output: 5.6 L / min and Cardiac Index: 2.2 L/ min / m-2
Systemic vascular resistance: 13.9 Wood units or 1114 [id number]-[id number](-5)
Pulmonary vascular resistance: 1.4 Wood units or 114 nhucy-ayw-fl(-5)
CORONARY FINDINGS :
Dominance: Right
LEFT MAIN: Tubular 50% stenosis
LEFT ANTERIOR DESCENDING: The LAD arises normally from the left main and has a complex proximal 95% stenosis involving the origin of a large first diagonal branch. The mid to distal LAD has minor irregularities.
CIRCUMFLEX: The circumflex is a large-caliber nondominant vessel with a 95% proximal stenosis. The circumflex supplies a single large bifurcating obtuse marginal branch.
RIGHT CORONARY ARTERY: The right coronary artery is occluded proximally with bridging collaterals and right to right collaterals as well as [id number] collaterals from circumflex and LAD
VENTRICULOGRAPHY: Left ventriculography ejection fraction is visually estimated at 20-25%
CONCLUSIONS
1. Multivessel coronary artery disease involving proximal LAD, large diagonal branch, proximal circumflex, and total occlusion of the RCA which is collateralized in a right to right and plie-cw-tuedk fashion
2. LV dysfunction with elevated right and left ventricular filling pressures. Reasonable cardiac output and cardiac index
RECOMMENDATIONS
1. Patient will be admitted and undergo diuresis.
2. Consult CT surgery to consider coronary artery bypass grafting with targets to LAD, diagonal, OM, and PDA/PLB, left atrial appendage ligation +/- MAZE
3. Significant LV dysfunction on good medical therapy. Cannot add oral beta maude given significant underlying bradycardia
Echo Jan 12 2025: Dilated cardiomyopathy with severely reduced left ventricular systolic function , EF 20-25%, Enlarged right ventricle with overall preserved RV systolic functio, Biatrial dilatation, Mild tricuspid regurgitation, PASP 68 mmHg,
AFib with slow response.
Outside echo January 2024: EF 45%, RALEIGH 6.1cm, mild to mod TR, RV dilated
Plan:
-s/p CABG x4, MAZE, BRITTA clip, placement of impella 01/03. concern for sluggish RV visually intraop
-in OR, team unable to pass ANNA probe and GI was called for assistance
-remains intubated, sedated
-impella currently on P4
-on levo@6, epi @4. wean as able
-CI 1.99
-following ABGs
-continue asa. patient noted to have hematuria intraop pre-impella insertion. will need to follow postoperatively, hgb pending 01/26
-he was not on BB preop due to bradycardia. holding entresto and aldactone for now, eventually would attempt to resume GDMT for known ICM
-follow volume status post op. was diuresed preoperatively to weight of 271 pounds
-post op EKG SR with 1st degree av block. QTc prolonged, repeat EKG in AM. eventual OAC (was on eliquis preop).
-continue post op care
-Discussed with nursing, CT surgery INTERNATIONAL PROJECT ENGINEER
Progress Note - Pegger
Subjective
Date of Service: January 26, 2025
intubated, sedated
Objective
Labs:
Labs
Hgb 16.5 g/dL (13.0-18.0) 01/25/25 03:33
Hct 47.8 % (39.0-52.0) 01/25/25 03:33
Plt Count 155 10^3/uL (130-400) 01/25/25 03:33
PT 14.1 Sec (11.4-14.6) 01/25/25 03:33
INR 1.06 01/25/25 03:33
APTT 128.2 Sec (23.4-35.0) H 01/26/25 04:16
Sodium 140 mmol/L (135-145) 01/26/25 04:16
Potassium 4.2 mmol/L (3.5-5.1) 01/26/25 04:16
BUN 26 mg/dl (9-20) H 01/26/25 04:16
Creatinine 1.0 mg/dL (0.7-1.3) 01/26/25 04:16
Glucose 112 mg/dl (70-99) H 01/26/25 04:16
Vital Signs and I&O:
Vital Signs
Temp Pulse Resp BP Pulse Ox
97.1 F 77 14 114/63 98
01/26/25 16:00 01/26/25 15:50 01/26/25 16:00 01/26/25 15:49 01/26/25 16:00
Vital Signs
Temp Pulse Resp BP Pulse Ox
97.1 F 77 14 114/63 98
01/26/25 16:00 01/26/25 15:50 01/26/25 16:00 01/26/25 15:49 01/26/25 16:00
Intake & Output
01/24/25 01/25/25 01/26/25 01/27/25
07:59 07:59 07:59 07:59
Intake Total 720 / 720 110 / 110 387.8 / 387.8
Output Total 400 / 400 450 / 450 285 / 285
Balance -400 / -400 270 / 270 110 / 110 102.8 / 102.8
Physical Exam
Physical Exam
GEN: No distress, intubated, sedated
HEENT: supple, mmm
LUNGS: CTA B/L, no wheezes/rales
CV: Reg, S1/S2, no murmur
ABD: soft, BS+, NT/ND
EXT: No cyanosis, clubbing, edema
NEURO: sedated
SKIN: Warm, pink, dry. No rash. Sternotomy dressing c/d/i. CTs in place. impella 5/[address]
[2025-01-26 16:18] LABS: Mixed Venous O2 Saturation 70.7 %
[2025-01-26] MEDS: PACERONE PO ×2 (16:24→21:12)
[2025-01-26] MEDS: NSS 500 IV (16:24)
[2025-01-26] MEDS: NOVOLOG FLEXPEN SC ×2 (16:24→17:16)
[2025-01-26] MEDS: TYLENOL PO ×2 (16:24→19:31)
[2025-01-26] MEDS: SODIUM BICARBONATE 25 MEQ IV (16:24)
[2025-01-26] MEDS: ANCEF 15 MG IV (16:24)
[2025-01-26] MEDS: NEURONTIN PO ×2 (16:24→21:12)
[2025-01-26] MEDS: ANCEF 10 IV (16:25)
--- NOTE | 2025-01-26 16:29 | PTCARENOTE ---
Received pt from CVOR at 1500; pt intubated and sedated; NSR on monitor and VSS; Epicardial V wires in placed and connected to box, box currently off; RIJohnathan Dunham floated to 52, Left A-line and PIV all lines leveled and zeroed; Levo, Insulin,
Epi and Precedex infusing see flow sheet for details; Impella 5.5 in right upper chest with 3 point [address] sites in place; Impella at p4 and dressing C/D/I; Lungs diminished; ETT 8 23 @ lip; SIMV 600/18/40%/5/5; CT x4 to -20 wall suction no air leak
and no crepitus noted; hypoactive bowel sounds; Serna Catheter draining blood tinged urine CT MACHINES TECHNICIAN aware; palpable pulses in B/L radials and Present Doppler B/L pedal pulses; no edema noted; all surgical sites C/D/I; see nursing documentation for
further details.
CI 1.99
CO 4.88
SVR 983
[2025-01-26 16:32] LABS: ALT (SGPT) 42 U/L (0-50); AST (SGOT) 79 U/L (17-59); Albumin 3.6 g/dl (3.5-5.0); Alkaline Phosphatase 37 U/L (38-126); Blood Urea Nitrogen 22 mg/dl (9-20); Calcium 8.4 mg/dl (8.4-10.2); Carbon Dioxide 24 mmol/L (22-30); Chloride 105 mmol/L (98-107); Estimated Creatinine Clearance 83 ml/min; Glucose 198 mg/dl (70-99); Potassium 3.3 mmol/L (3.5-5.1); Sodium 140 mmol/L (135-145); Total Bilirubin 1.4 mg/dl (0.2-1.3); Total Protein 5.6 g/dl (6.3-8.2); eGFR > 60.00
[2025-01-26 16:33] LABS: Glucose - Point of Care 196 mg/dl (70-99)
[2025-01-26 16:36] LABS: Lactic Acid 6.4 mmol/L (0.7-2.0)
[2025-01-26 16:50] LABS: B.E. -3.8 mmol/L; HCO3 23.1 mmol/L (21-28); Ionized Calcium 1.11 mMOL/L (1.15-1.33); O2 Saturation % 98.6 % (94-98); PCO2 48 mmHg (35-48); PO2 112 mmHg (83-108); Potassium 3.3 mMOL/L (3.5-5.1); Sodium 134 mMOL/L (136-145); pH 7.29 (7.35-7.45)
[2025-01-26 16:53] LABS: % Basophils 0.2 % (0-2); % Immature Granulocytes 0.5 % (0-0.5); % Lymphocytes 9.2 % (20.5-51.1); % Monocytes 14.9 % (1.7-9.3); % Neutrophils 75.2 % (42.2-75.2); Absolute Immature Granulocytes 0.1 10^3/uL (0-0.05); Absolute Lymphocytes 1.6 10^3/uL (1.2-3.4); Absolute Monocytes 2.6 10^3/uL (0.1-0.6); Absolute Neutrophils 13.2 10^3/uL (1.4-6.5); Hematocrit 36.3 % (39.0-52.0); Hemoglobin 12.6 g/dL (13.0-18.0); Mean Corp Hgb Conc. 34.7 g/dL (33.0-37.0); Mean Corpuscular Hgb 32.3 pg (27.0-31.0); Mean Corpuscular Volume 93.1 fL (80.0-94.0); Mean Platelet Volume 9.7 fL (7.4-10.4); Nucleated Red Blood Cells % 0 % (-); Platelet Count 134 10^3/uL (130-400); Red Cell Dist. Width 13.1 % (11.5-14.5); White Blood Cell Count 17.5 10^3/uL (4.8-10.8)
[2025-01-26 16:56] LABS: LDH 449 U/L (120-246); Magnesium 2.7 mg/dl (1.6-2.3)
[2025-01-26 17:08] LABS: Glucose - Point of Care 189 mg/dl (70-99)
[2025-01-26 17:12] LABS: B.E. -3.6 mmol/L; HCO3 21.5 mmol/L (21-28); O2 Saturation % 99.3 % (94-98); PCO2 38 mmHg (35-48); PO2 135 mmHg (83-108); pH 7.36 (7.35-7.45)
[2025-01-26] MEDS: LIPITOR PO (17:16)
[2025-01-26 17:18] LABS: APTT 29.3 Sec (23.4-35.0); Fibrinogen 262 MG/DL (199-459); INR 1.44
[2025-01-26 17:20] LABS: D-Dimer 1.07 ug/mlFEU (0.00-0.50)
--- NOTE | 2025-01-26 17:58 | PTCARENOTE ---
Pt following commands; Respiratory at bedside and pt placed on CPAP.
[2025-01-26 18:21] LABS: Glucose - Point of Care 176 mg/dl (70-99)
[2025-01-26 18:23] LABS: B.E. - POC -4.5 mmol/L; Blood Urea Nitrogen - POC 21 mg/dl (3-120); Chloride - POC 105 mmol/L (96-111); Creatinine - POC 0.93 mg/dl (0.3-1.0); Glucose - POC 177 mg/dl (70-99); HCO3 - POC 21 mmol/L (21-28); Hematocrit - POC 37 % PCV (42-52); Hemodilution- POC Yes; Hemoglobin Calculated - POC 12.6; Ionized Calcium - POC 1.17 mmol/L (1.15-1.33); Lactate - POC 6.53 mmol/L (0.36-0.75); PCO2 - POC 41 mmHg (35-48); PO2 - POC 112 mmHg (83-108); Potassium - POC 3.3 mmol/L (3.5-5.1); Sodium - POC 142 mmol/L (136-145); Specimen Type - POC Arterial; pH - POC 7.33 (7.35-7.45)
--- NOTE | 2025-01-26 18:23 | PTCARENOTE ---
EPOC resulted cy CTNP; respiratory at bedside and pt extubated to 6L NC.
--- NOTE | 2025-01-26 18:33 | RESPNOTE ---
patient extubated to a 6L nasal cannula following cpap trial and abg. Incentive spirometry re-instruction completed
[2025-01-26 19:05] LABS: Glucose - Point of Care 190 mg/dl (70-99)
[2025-01-26] MEDS: OFIRMEV 100 IV (19:23)
[2025-01-26] MEDS: SENOKOT-S PO (19:31)
--- NOTE | 2025-01-26 20:00 | PTCARENOTE ---
Assumed care of the patient at 1900. Patient AOx3, drowsy, RASS -1, moving all extremities and following commands. SR on CM VSS, v wires in place connected to pacer box powered off, Impella 5.5 at P4 in RCW @ 34 with 3-point fixation intact, Aquacel
dressing CDI; pulses palpable throughout, no edema noted, heart tones audible, rub heard on auscultation. Lungs dim throughout, CT x4 to -20 cm wall suction, no air leak, tidaling, or crepitus noted, dressing CDI from CVOR. Normoactive BS, abdomen
round, SNT, NPO for now. Serna catheter in place draining clear blood tinged/brownish yellow urine with sediment intermittently. Surgical sites intact and stable. On Levo, Epi, and insulin, titrated per protocol. RIJ Cordis/Chandler Iram catheter @52,
L radial art line, PIVx1; all applicable lines leveled and zeroed. CVPA at bedside, aware of items outside of normal limits. See nursing worklist for additional intervention details.
[2025-01-26 20:05] LABS: B.E. -2.7 mmol/L; HCO3 22.6 mmol/L (21-28); Ionized Calcium 1.16 mMOL/L (1.15-1.33); O2 Saturation % 98.7 % (94-98); PCO2 40 mmHg (35-48); PO2 128 mmHg (83-108); Potassium 3.3 mMOL/L (3.5-5.1); pH 7.36 (7.35-7.45)
[2025-01-26 20:07] LABS: Glucose - Point of Care 145 mg/dl (70-99)
[2025-01-26 20:08] LABS: Mixed Venous O2 Saturation 68.8 %
[2025-01-26 20:16] LABS: Fibrinogen 279 MG/DL (199-459); Hematocrit 35.1 % (39.0-52.0); Hemoglobin 12.4 g/dL (13.0-18.0); Platelet Count 126 10^3/uL (130-400)
[2025-01-26] MEDS: ANCEF 5 IV (20:16)
[2025-01-26 20:20] LABS: Lactic Acid 5.7 mmol/L (0.7-2.0)
[2025-01-26] MEDS: ASPIRIN 300 MG RECTAL (21:02)
[2025-01-26 21:08] LABS: Glucose - Point of Care 169 mg/dl (70-99)
[2025-01-26 22:00] LABS: Glucose - Point of Care 163 mg/dl (70-99)
[2025-01-26 22:20] LABS: Lactic Acid 4.9 mmol/L (0.7-2.0)
[2025-01-26 22:26] LABS: LDH 484 U/L (120-246)
[2025-01-27] VITALS (28 sets, daily range): BP systolic 94–145; BP diastolic 64–90; BMI 37.9
[2025-01-27 00:06] LABS: Glucose - Point of Care 196 mg/dl (70-99)
[2025-01-27] MEDS: CALCIUM GLUCONATE 100 IV (00:06)
[2025-01-27] MEDS: NOVOLIN R INSULIN INFUSION 100 IV ×2 (00:09→16:51)
--- NOTE | 2025-01-27 00:30 | PTCARENOTE ---
Ofirm for mild pain, K repleted, increased output from L/R pleural CT --->1 uPLT, repeat CXR, calcium gluconate currently infusing. VSS, levo weaned to 2 per protocol. Small amount of drainage under Impella dressing site, stable from first
discovery, CVPA aware, advised to continue monitoring. Pending ABG and MVO2 post calcium gluconate infusion, CVPA aware, advised to await the completion of CaGluc.
[2025-01-27 01:06] LABS: Glucose - Point of Care 151 mg/dl (70-99)
[2025-01-27 01:39] LABS: B.E. 0.5 mmol/L; HCO3 25.4 mmol/L (21-28); Ionized Calcium 1.23 mMOL/L (1.15-1.33); PCO2 41 mmHg (35-48); PO2 100 mmHg (83-108); Potassium 4.6 mMOL/L (3.5-5.1)
[2025-01-27 01:42] LABS: O2 Therapy 6L NC
[2025-01-27 01:44] LABS: Mixed Venous O2 Saturation 63.8 %
[2025-01-27 02:12] LABS: Glucose - Point of Care 123 mg/dl (70-99)
[2025-01-27] MEDS: ADRENALIN 250 IV (02:22)
[2025-01-27 03:08] LABS: Glucose - Point of Care 144 mg/dl (70-99)
[2025-01-27 04:04] LABS: Glucose - Point of Care 130 mg/dl (70-99)
--- NOTE | 2025-01-27 04:30 | PTCARENOTE ---
Nitro started at 0415, per CVPA, do not titrate Epi at this time; Levo titrated to off. Epi infusing at 4. Albumin 5% given - steadily decreasing UOP hourly, see work list.
[2025-01-27] MEDS: ANCEF 5 IV ×2 (04:31→12:14)
[2025-01-27 04:56] LABS: Mixed Venous O2 Saturation 58.6 %
[2025-01-27 05:09] LABS: Glucose - Point of Care 151 mg/dl (70-99)
[2025-01-27 05:11] LABS: Hematocrit 32.6 % (39.0-52.0); Hemoglobin 11.3 g/dL (13.0-18.0); Mean Corp Hgb Conc. 34.7 g/dL (33.0-37.0); Mean Corpuscular Hgb 31.8 pg (27.0-31.0); Mean Corpuscular Volume 91.8 fL (80.0-94.0); Platelet Count 149 10^3/uL (130-400); Red Blood Cell Count 3.55 10^6/uL (4.70-6.10); Red Cell Dist. Width 13.2 % (11.5-14.5); White Blood Cell Count 16.6 10^3/uL (4.8-10.8)
[2025-01-27 05:12] LABS: PT 17.7 Sec (11.4-14.6)
[2025-01-27 05:13] LABS: Fibrinogen 325 MG/DL (199-459)
[2025-01-27 05:16] LABS: D-Dimer 0.53 ug/mlFEU (0.00-0.50)
[2025-01-27 05:24] LABS: ALT (SGPT) 31 U/L (0-50); AST (SGOT) 70 U/L (17-59); Albumin 3.5 g/dl (3.5-5.0); Alkaline Phosphatase 40 U/L (38-126); Blood Urea Nitrogen 26 mg/dl (9-20); Calcium 8.7 mg/dl (8.4-10.2); Carbon Dioxide 23 mmol/L (22-30); Chloride 109 mmol/L (98-107); Estimated Creatinine Clearance 83 ml/min; Glucose 142 mg/dl (70-99); LDH 464 U/L (120-246); Magnesium 2.2 mg/dl (1.6-2.3); Potassium 4.9 mmol/L (3.5-5.1); Sodium 140 mmol/L (135-145); Total Bilirubin 0.9 mg/dl (0.2-1.3); Total Protein 5.6 g/dl (6.3-8.2); eGFR > 60.00
[2025-01-27] MEDS: ALBUMIN 5% 250 IV (05:57)
[2025-01-27] MEDS: TYLENOL 1000 MG PO ×3 (05:57→21:19)
--- NOTE | 2025-01-27 06:02 | W.PN.CT ---
Today's Communication / Plan
-
-pod #1
-no significant issues overnight
-minor coagulopathy- got 1 unit platelet. Hg stable
-mvO2 58.6, CI 1.64, CO 4.0, SVR 1456. Drips: Epi 4, Nitro 5, Insulin. ? dry- gave 250 Albumin this am
-CT output: 2 meds 80/160, 2 pleur 445/565 in 12/24 hrs
-Impella 5.5 @ P4.
-Lactate is trending down - 3.0 today
-slow Epi wean
-maintain swan/Cordis/a-line
-maintain Serna while Impella in
-current meds : ASA, Plavix, Lipitor, Amio, Protonix. Will hold BB while on Epi (preop BB was held as well d/t shiela 30-50s)
-encourage IS, OOB
Assessment / Plan
-
Assessment:
-s/p CABG x4 (CLEMONS- LAD, SVG-OM, SVG-Dx, SVG-RPDA); encompass SANDRA, ELAA #50 clip, direct Impella 5.5 placement on 01/26/[address] Castillo, pod #1
-Severe 3v CAD including 50% tubular LM
-BARRETT
-Ischemic CM(EF 20-25%) per TTE 01/12/25
-HFrEF
-PAFib S/p PVI Jul 2024, on Eliquis preop
-HTN
-HLD
-Class 2 obesity (BMI 36.7)
-Bradycardia preop
-Mild TR
-Trace MR
-LE edema
-Acute postop blood loss anemia - stable, no transfusion
-Acute postop thrombocytopenia/coagulopathy - s/p 1 unit platelet
-Acute postop hypovolemia with subsequent hypervolemia
-Acute postop atelectasis
Discussed patient care with: Nursing and Care Team
Subjective
-
Date of Service: January 26, 2025
Objective Data
-
Lab Results
01/26/25 19:59
01/26/25 15:30
PT 18.0 Sec (11.4-14.6) H 01/26/25 15:30
INR 1.44 01/26/25 15:30
APTT 29.3 Sec (23.4-35.0) 01/26/25 15:30
Vital Signs
Vital Signs
Temp Pulse Resp BP Pulse Ox
98.9 F 79 17 128/65 97
01/26/25 23:00 01/26/25 23:00 01/26/25 23:00 01/26/25 23:00 01/26/25 23:00
CT Intake/Output/Weight
01/26/25 01/26/25 01/27/25
06:59 18:59 06:59
Intake Total 110 / 110 986.0 / 2474.0 1488.0 / 2474.0
Output Total 550 / 1205 655 / 1205
Balance 110 / 110 436.0 / 1269.0 833.0 / 1269.0
SaO2: 97
Physical Exam
-
General: Awake and AOx3
Cardiovascular: Regular rate & rhythm, No Murmurs and Rub
Respiratory: Decreased Breath Sounds
Sternum: Stable
Incision: Clean, Dry and Intact
Extremities: No Edema (DP 2+ b/l)
Abdomen: soft, nontender, nondistended, + decreased bowel sounds
Data Reviewed
-
Lab Results: Results Reviewed
Medications: Active Meds Reviewed
Chest X-Ray: Report Reviewed and Image Reviewed
ECG: Report Reviewed and Image Reviewed
[2025-01-27 07:05] LABS: Glucose - Point of Care 128 mg/dl (70-99)
[2025-01-27] MEDS: LIDOCAINE 4% PATCH 1 PATCH TOPICAL (07:48)
[2025-01-27] MEDS: MAGNESIUM OXIDE 500 MG PO ×2 (07:49→20:44)
[2025-01-27] MEDS: SENOKOT-S 1 TABLET PO ×2 (07:49→20:44)
[2025-01-27] MEDS: LOW STRENGTH ASPIRIN 81 MG PO (07:49)
[2025-01-27] MEDS: NEURONTIN 100 MG PO ×3 (07:49→21:19)
[2025-01-27] MEDS: PROTONIX 40 MG PO (07:49)
[2025-01-27] MEDS: PLAVIX 75 MG PO (07:49)
[2025-01-27] MEDS: PACERONE 200 MG PO ×3 (07:49→21:19)
[2025-01-27] MEDS: BACTROBAN 2% OINTMENT 1 APPLIC NASAL ×2 (07:50→20:45)
--- NOTE | 2025-01-27 08:17 | W.PN.ANS.POP ---
Anesthesia Post Operative
- Anesthesia Post Op Note
Vital Signs Stable-See Nursing Note: Yes (remains on Epi and NTG gtts with Impella in place)
Airway Patent: Yes
Adequate Pain Control: Yes
Change in Mental Status: No
Current Postoperative Nausea & Vomiting: No
Anesthesia Complications: No
General Anesthetic Recall: No
Unplanned Admission: No
Post Op Hydration Adequate: Yes
--- NOTE | 2025-01-27 08:22 | W.PN.INTV ---
Today's Communication / Plan
Recommendations
Up OOB as tolerated
Pain control
Start Mucinex
Aspiration precautions
Goal SaO2 >90-94%
Impella and epinephrine + nitroglycerin drips per CT surgery team
Insulin drip with goal BG 110�140
Exhibit Display Representative services will continue to follow along while patient has Impella in place and also remains on insulin, nitroglycerin + epinephrine drips.
Assessment
-
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
suspected sleep apnea, aortic atherosclerosis, dyslipidemia, and prediabetes who presents for heart catheterization. Left and right heart catheterization performed 01/21/2025 showed postcapillary pulm hypertension with an elevated wedge of 40, LVEDP
35, CO 5.6, CI 2.2, PVR 1.4 and SVR 13.9 Wood units. LHC showed multivessel CAD involving proximal LAD, large diagonal branch, proximal circumflex, and total occlusion of the RCA which is collateralized in a right to right and ewdy-[id number]
fashion. CT surgery consulted. Patient underwent a CABG x 4 on 01/26/2025 with Impella inserted and postoperatively was transferred to the CVICU with associate professor of pathology services consulted for additional management/recommendations.
Chronic conditions UNIT SUPERVISOR: Multivessel CAD, A-fib on Eliquis, cardiomegaly, obesity chronic HFrEF, bradycardia (slow A-fib), hypertension, pulmonary hypertension, suspected sleep apnea, aortic atherosclerosis, dyslipidemia, prediabetes
Impression:
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
#Abnormal urinalysis with +3 leukocyte esterase, +16�20 urine WBC suspicious for UTI
#Hyperglycemia - improved and was hypoglycemic today
#Hypokalemia - resolved
#Hypocalcemia - resolved
#Lactic acidosis - resolved
#Chronic HFrEF with RV enlargement (per TTE from 01/12/2025)
#Post�capillary pulmonary hypertension (moderate severity with mPAP 52mmHg with PCWP: 40, TP and CO/CI: 5.6, 2.2 and PVR: 1.4 RUIZ via RHC on 01/21/2025)
Plan:
Patient successfully extubated on 01/26/2025 to nasal cannula, and is currently on 4 L per nasal cannula saturating 96%
Maintain SpO2 >90-94% and continue weaning down supplemental O2 flow rate as tolerated
prn nebulized bronchodilators - not currently bronchospastic
Encourage incentive spirometer use q1hr while awake
Start Mucinex for pulmonary toilet purposes as he has thick secretions with difficulty expectorating
May need to start nebulized hypertonic saline 3% +/- vest therapy with nebulized bronchodilators if he continues to have difficulty expectorating
Pulmonary artery catheter parameters will be followed
Pressors/antihypertensive/inotropes/diuretics will be provided as needed
Maintain MAP>65
Replete electrolytes with K>4, Mg>2
Continue Impella support which is currently on P4 with cardiac output 6.9 (4 on 01/26) at 1.7 W (0.6 W on 01/26)
Monitor chest tube output (bilateral pleural chest tubes + mediastinal chest tubes x 2)
Monitor hemoglobin
Monitor platelet count and coags
Transfuse blood products as needed to maintain Hb>7g/dL, plt>50k (given post-operative status)
CT surgery managing chest tubes
Monitor blood sugar to maintain euglycemia with goal BG 110-140
Insulin drip per protocol
Aspiration precautions
DVT prophylaxis
Early nutrition
Early mobilization
Exhibit Display Representative services will continue to follow along while patient has Impella in place and also remains on insulin, nitroglycerin + epinephrine drips.
Critical care statement: A total of 37 minutes of critical care time was provided for this patient today. This includes management of ventilator, spontaneous breathing trial, arterial blood gases, pressors, of unstable vital signs, evaluation of the
patient at bedside, reviewing the patient's pertinent medical records including radiographs, microbiology, laboratory evaluations, and discussion with primary team and critical care nursing.
Subjective Dataa
Subjective Data
Date of Service:
Date of Service: January 27, 2025
Chief Complaint: Exhibit Display Representative Follow Up
Subjective:
Patient seen today at bedside. Remains on Impella at P4 with output 6.9 at 1.7 W. Current insulin drip at 4 units/hr, nitro drip at 3 mcg/min and epi at 1 mcg/min. He is having increased thick secretions with some difficulty coughing it out.
Heart rate 88, BP via A-line 135/60, PAP 45/13, CO/CI 5.73/2.34, respectively, and saturating 96% on 4 L/min nasal cannula. He currently denies ABRAMS, abdominal pain, nausea, fevers or chills.
Review of Systems
General: Other (Negative unless mentioned above)
Objective Data
Data Reviewed
Vital Signs / I&O / Oxygen:
Vital Signs
Temp Pulse Resp BP Pulse Ox
98.6 F 81 20 120/69 94
01/27/25 09:00 01/27/25 09:00 01/27/25 09:00 01/27/25 09:00 01/27/25 09:00
Intake and Output
01/26/25 01/27/25 01/28/25
06:59 06:59 06:59
Intake Total 110 / 110 3045.2 / 3369.7 624.8 / 624.8
Output Total 1705 / 1755 155 / 155
Balance 110 / 110 1340.2 / 1614.7 469.8 / 469.8
SaO2 [CPAP] 98
SaO2 [SIMV] 98
SaO2 94
Nasal Cannula flow liters per 6
minute
Physical Exam
General: Respiratory Distress (negative), Comfortable, Chills (negative) and Sweats (negative)
HEENT: Normocephalic and Anicteric
Cardiovascular: S1-S2 and Peripheral Edema (negative)
Respiratory: Wheeze (negative), Crackles (negative), Rhonchi (negative), Non-Labored Respirations, Stridor (negative) and Chest Tube (bilateral pleural chest tubes + mediastinal chest tubes x 2)
GI: Soft, Distended (Abdominal obesity), Non Tender and Normal Bowel Sounds
Neurology: Awake, Alert, Oriented and Tremors (negative)
Skin: Warm, Dry, Jaundice (negative) and Rash (negative)
Labs/Micro/Reports
Lab Data
01/27/25 04:44
01/27/25 04:44
Laboratory Results
01/26/25 01/26/25 01/26/25
15:30 17:04 19:59
PT 18.0 H
INR 1.44
APTT 29.3
pH 7.29 L 7.36 7.36
pCO2 48 38 40
pO2 112 H 135 H 128 H
HCO3 23.1 21.5 22.6
O2 Delivery Level
01/27/25 01/27/25
01:20 04:44
PT 17.7 H
INR 1.40
APTT
pH 7.40
pCO2 41
pO2 100
HCO3 25.4
O2 Delivery Level 6l nc
Microbiology
01/26/25 07:10 Urine Urine Culture - Final
NO GROWTH
--- NOTE | 2025-01-27 08:33 | PTCARENOTE ---
assumed care of pt from previous shift RN, sinus rhythm/1st degree HB on tele, + peripheral pulses, +1 edema to bilateral upper and lower extremities. Epicardial V wire insulated. Left radial carlos leveled and zeroed, BP 120/65, Right IJ cordis w
swan floated to 52, PAP 29/11, CVP 5, CO 4.91 CI 2. Lungs diminished, pox 95% on 6L NC, coughing and deep breathing encouraged. +bs, tolerating PO intake. Serna draining markos urine. CT x4 w red drainage. Right CW impella 5.5 maintained at P4 w site
intact. Right groin and bilateral SVG sites stable. Pt medicated for pain. Plan of care reviewed and questions encouraged.
[2025-01-27] MEDS: NOVOLOG FLEXPEN SC ×3 (08:59→18:20)
[2025-01-27 09:12] LABS: Glucose - Point of Care 121 mg/dl (70-99)
[2025-01-27] MEDS: NOVOLOG FLEXPEN 8 UNITS SC (09:26)
--- NOTE | 2025-01-27 10:20 | W.PN.CARDCBS ---
Addendum entered and electronically signed by Bonny Fleming MD 01/27/25 12:33:
I saw and examined the patient.
The Adult Secondary Education Instructor's note was reviewed and I agree with the note.
Comment:
He is s/p CABG x4, MAZE, BRITTA clip, placement of impella 5.5. Concern for RV dysfunction intraoperatively. Remains stable currently.
Impella currently on P4. Wean impella and drips as per CT surgery.
Hematuria being assessed. Hemoglobin stable.
Vital signs stable. Hemodynamics reviewed.Given RV dysfunction avoid Intravascular volume depletion.
EKG pending for today.Telemetry stable.
Original Note:
Today's Communication / Plan
-
continue post op care
repeat EKG
weaning pressors
follow hematuria
eventual GDMT/OAC
Impression / Plan
-
Fire Ranger: Dr. Zayas
Primary EP: Dr. Troy Fleming
Impression:
s/p CABG x4, MAZE, BRITTA clip, placement of impella 5.5
MVCAD by cath 01/21/25
Ischemic CM EF 20-25%
HFrEF
PAFib hx PVI Jul 2024
HTN
Bradycardia
Cath Jan 21 2025:
INDICATION: This is a 79-year-old gentleman with a past medical history notable for hypertension, atrial fibrillation, and dilated cardiomyopathy with recent worsening in LVEF. He underwent pulmonary vein isolation in July 2024 and experienced
a recent worsening in symptoms of exertional dyspnea as well as development of lower extremity edema. A recent echocardiogram was notable for worsening in LVEF and he is now referred for coronary angiography. He denies any chest discomfort but
does report a significant change in functional capacity with dyspnea occurring at very low levels of exertion.
HEMODYNAMICS : mmHg
RA (m) : 25
RV (s/d) : 87/13, 22
PA (s/d, m) : 91/33, 48
PCWP (m) : 40
AO (s/d, m) : 156/72, 103
LV (s/d) : 167/24
LVEDP : 35
Estimated Ladan Cardiac Output: 5.6 L / min and Cardiac Index: 2.2 L/ min / m-2
Systemic vascular resistance: 13.9 Wood units or 1114 mdxwo-ugx-am(-5)
Pulmonary vascular resistance: 1.4 Wood units or 114 lgytv-waf-qg(-5)
CORONARY FINDINGS :
Dominance: Right
LEFT MAIN: Tubular 50% stenosis
LEFT ANTERIOR DESCENDING: The LAD arises normally from the left main and has a complex proximal 95% stenosis involving the origin of a large first diagonal branch. The mid to distal LAD has minor irregularities.
CIRCUMFLEX: The circumflex is a large-caliber nondominant vessel with a 95% proximal stenosis. The circumflex supplies a single large bifurcating obtuse marginal branch.
RIGHT CORONARY ARTERY: The right coronary artery is occluded proximally with bridging collaterals and right to right collaterals as well as sava-yt-ognop collaterals from circumflex and LAD
VENTRICULOGRAPHY: Left ventriculography ejection fraction is visually estimated at 20-25%
CONCLUSIONS
1. Multivessel coronary artery disease involving proximal LAD, large diagonal branch, proximal circumflex, and total occlusion of the RCA which is collateralized in a right to right and uqtk-vt-iswzx fashion
2. LV dysfunction with elevated right and left ventricular filling pressures. Reasonable cardiac output and cardiac index
RECOMMENDATIONS
1. Patient will be admitted and undergo diuresis.
2. Consult CT surgery to consider coronary artery bypass grafting with targets to LAD, diagonal, OM, and PDA/PLB, left atrial appendage ligation +/- MAZE
3. Significant LV dysfunction on good medical therapy. Cannot add oral beta maude given significant underlying bradycardia
Echo Jan 12 2025: Dilated cardiomyopathy with severely reduced left ventricular systolic function , EF 20-25%, Enlarged right ventricle with overall preserved RV systolic functio, Biatrial dilatation, Mild tricuspid regurgitation, PASP 68 mmHg,
AFib with slow response.
Outside echo January 2024: EF 45%, RALEIGH 6.1cm, mild to mod TR, RV dilated
Plan:
-s/p CABG x4, MAZE, BRITTA clip, placement of impella 5.5. concern for sluggish RV visually intraop
-in OR, team unable to pass ANNA probe and GI was called for assistance. EGD intra op showed upper esophageal sphincter moderately hypertensive.
-extubated overnight
-wean supp O2 as able
-impella 5.5 currently on P4. wean as per CT surgery. not presently on IV heparin, remains with gross hematuria (started pre impella insertion). defer need to start to CT surgery. received 1 plts. hgb 11.3. continue asa
-weaning epi, currently @2. on nitro gtt @10. most recent CI 2
-he was not on BB preop due to bradycardia, holding post op due to shiela and as remains on epi. holding entresto and aldactone for now, eventually would attempt to resume GDMT for known ICM
-follow volume status post op. was diuresed preoperatively to weight of 271 pounds, if accurate up to 283 pounds today, suspect will need eventual diuresis
-QTc was prolonged by 01/26 EKG. repeat EKG for today ordered but not yet completed. eventual OAC (was on eliquis preop).
-continue post op care
-Discussed with nursing, CT surgery ALTERATION MANAGER
Progress Note - Fire Ranger
Subjective
Date of Service: January 27, 2025
feeling well. no specific complaints. a little 'woozy'/shaky at times
Objective
Labs:
01/27/25 04:44
01/27/25 04:44
Labs
Hgb 11.3 g/dL (13.0-18.0) L 01/27/25 04:44
Hct 32.6 % (39.0-52.0) L 01/27/25 04:44
Plt Count 149 10^3/uL (130-400) 01/27/25 04:44
PT 17.7 Sec (11.4-14.6) H 01/27/25 04:44
INR 1.40 01/27/25 04:44
APTT 29.3 Sec (23.4-35.0) 01/26/25 15:30
Sodium 140 mmol/L (135-145) 01/27/25 04:44
Potassium 4.9 mmol/L (3.5-5.1) D 01/27/25 04:44
BUN 26 mg/dl (9-20) H 01/27/25 04:44
Creatinine 1.0 mg/dL (0.7-1.3) 01/27/25 04:44
Glucose 142 mg/dl (70-99) H 01/27/25 04:44
Vital Signs and I&O:
Vital Signs
Temp Pulse Resp BP Pulse Ox
98.9 F 81 20 125/72 94
01/27/25 10:00 01/27/25 10:10 01/27/25 10:10 01/27/25 10:00 01/27/25 10:00
Vital Signs
Temp Pulse Resp BP Pulse Ox
98.9 F 81 20 125/72 94
01/27/25 10:00 01/27/25 10:10 01/27/25 10:10 01/27/25 10:00 01/27/25 10:00
Intake & Output
01/25/25 01/26/25 01/27/25 01/28/25
07:59 07:59 07:59 07:59
Intake Total 720 / 720 110 / 110 3369.7 / 3431.2 300.3 / 300.3
Output Total 450 / 450 1755 / 1820 105 / 105
Balance 270 / 270 110 / 110 1614.7 / 1611.2 195.3 / 195.3
Physical Exam
Physical Exam
GEN: No distress, awake, alert, oriented x3. on supp O2. impella 5.[address] R neck
HEENT: supple, anicteric, mmm, eomi
LUNGS: CTA B/L anterolaterally, no wheezes
CV: Reg, S1/S2, no murmur
ABD: soft, NT
EXT: No cyanosis, clubbing. 1+ edema of B/L LE
NEURO: Gross non-focal
SKIN: Warm, pink, dry. No rash. Sternotomy dressing c/d/i. CTs in place
[2025-01-27 10:25] LABS: Glucose - Point of Care 112 mg/dl (70-99)
[2025-01-27 10:53] LABS: Lactic Acid 1.8 mmol/L (0.7-2.0)
[2025-01-27 11:54] LABS: Glucose - Point of Care 76 mg/dl (70-99)
--- NOTE | 2025-01-27 11:56 | PTCARENOTE ---
pt assisted OOB to chair, sinus rhythm maintained on tele, SBP briefly dropped to 70's, pt asymptomatic, 250LB bolus administered as ordered by CT CHARLENE w good result .
[2025-01-27 12:02] LABS: LDH 505 U/L (120-246)
--- NOTE | 2025-01-27 12:24 | CM ---
Chart reviewed. Patient is independent of ADLS, lives alone in a 3 [address], mostly resides on 1st and 2nd floor, 2 MARILEE, 0 DME. Patients daughter is staying with patient to help assist when medically stable for discharge. Plan is for the patient to
return home with CT Transitional RN. CM to follow
[2025-01-27 12:44] LABS: Glucose - Point of Care 87 mg/dl (70-99)
[2025-01-27 12:59] LABS: Blood Urea Nitrogen 33 mg/dl (9-20); Calcium 8.5 mg/dl (8.4-10.2); Carbon Dioxide 27 mmol/L (22-30); Chloride 106 mmol/L (98-107); Estimated Creatinine Clearance 71 ml/min; Glucose 62 mg/dl (70-99); Magnesium 2.2 mg/dl (1.6-2.3); Sodium 136 mmol/L (135-145); eGFR > 60.00
[2025-01-27 13:07] LABS: Mixed Venous O2 Saturation 50.3 %
[2025-01-27] MEDS: ROXICODONE 5 MG PO (13:43)
[2025-01-27 13:46] LABS: Glucose - Point of Care 106 mg/dl (70-99)
[2025-01-27] MEDS: SODIUM BICARBONATE 1025 MEQ INF CATH (14:02)
--- NOTE | 2025-01-27 14:45 | PTCARENOTE ---
CHG bath completed, linens changed. Echo completed.
--- NOTE | 2025-01-27 15:01 | CARDSERVLU ---
Echocardiogram with Lumason completed after protocol screening completed. Allergies verified.
Patent IV site: _left antecubital 20 G PC site flushed with NSS____
IV site flushed with 0.9% NaCl pre and post administration.
Diluted bolus method utilized to enhance visualization of ventricular saavedra.
Total volume given: _5___ mL
Patient tolerated all procedures well without complications.
[2025-01-27 15:07] LABS: Glucose - Point of Care 121 mg/dl (70-99)
[2025-01-27] MEDS: MUCINEX PO (15:12)
[2025-01-27 16:22] LABS: Glucose - Point of Care 120 mg/dl (70-99)
[2025-01-27 16:28] LABS: Lactic Acid 0.9 mmol/L (0.7-2.0)
[2025-01-27 16:33] LABS: LDH 455 U/L (120-246)
[2025-01-27] MEDS: LIPITOR 80 MG PO (16:51)
[2025-01-27] MEDS: MUCINEX 1200 MG PO ×2 (16:52→20:44)
[2025-01-27] MEDS: NSS 500 IV (16:52)
[2025-01-27 18:14] LABS: Glucose - Point of Care 92 mg/dl (70-99)
--- NOTE | 2025-01-27 20:00 | PTCARENOTE ---
Assumed care of the patient at 1900. Patient AOx3. SR w/ 1st degree HB on CM, VSS, v wire insulated, Impella 5.5 at P4 in RCW @ 34 with 3-point fixation intact, Aquacel dressing w/ old sanguineous drainage; pulses palpable throughout, +1 edema noted
in UE/LEs, heart tones audible. Lungs dim throughout, CT x4 to -20 cm wall suction, no air leak, tidaling, or crepitus noted. Normoactive BS, abdomen round, SNT, reports poor appetite. Serna catheter in place draining blood tinged/brownish yellow
urine with sediment. Surgical sites intact. On Epi and nitro, titrated per protocol. RIJ Cordis/Chandler Iram catheter @52, L radial art line, PIVx1; all applicable lines leveled and zeroed. See nursing worklist for additional intervention details.
[2025-01-27 22:49] LABS: Lactic Acid 0.8 mmol/L (0.7-2.0)
[2025-01-27 22:55] LABS: LDH 377 U/L (120-246)
[2025-01-28] VITALS (23 sets, daily range): BP systolic 101–138; BP diastolic 47–115; PULSE 2–86; BMI 38.6
--- NOTE | 2025-01-28 | PTCARENOTE ---
Patient with 5 and 8 beat run of vtach around 2014, CVPA aware. Prepped for CVOR in AM, c/o mild-moderate pain but declined pain medication. Epi stopped per CVPA for hypertension, nitro titrated per protocol. Patient made comfortable in bed,
assessment of needs ongoing, NPO now for AM procedure.
--- NOTE | 2025-01-28 03:09 | W.PN.CT ---
Addendum entered and electronically signed by Joseph Castillo MD 01/28/25 06:26:
Addendum: On reviewing patient's lab trend, his a.m. hemoglobin today of 7.5 may possibly represent laboratory error as his hemoglobin had been 12.4 and subsequently 11.3. His chest tube output again is not excessive. His chest x-ray appears clear
with no effusions or mediastinal widening. I have asked for a repeat CBC to be sent stat from a fresh stick.
Addendum entered and electronically signed by Joseph Castillo MD 01/28/25 06:14:
I saw and examined the patient.
The PA's note was reviewed and I agree with the note.
Comment:
No major overnight events. The patient did have worsening hypertension and an 8 beat run of VT. His epinephrine infusion was subsequent weaned to off and his blood pressure improved as did his rhythm. His morning labs noted him to be anemic with
a hemoglobin of 7.5. I will transfuse 2 units of packed red blood cells. His chest tube drainage is not excessive. He is currently on no inotropic or vasopressor infusions. He is requiring nitroglycerin for hypertension. His echocardiogram from
yesterday demonstrated an LVEF estimated to be at approximately 30% with a dilated LV. No drastic change in the left regular function was demonstrated with lowering of Impella support. His right ventricular function was normal. There is no
significant valvular pathology identified. His morning EKG demonstrated some ST changes. The patient denies any true anginal type chest pain. It is my belief this EKG likely represents postoperative pericarditis.
I will plan for Impella removal later today.
Joseph Castillo MD
[phone]
Original Note:
Today's Communication / Plan
-
-pod #2
-had occasional runs (8 beats) Vtach overnight.
-CI >2.0, SBP of 150's overnight, NTG at 50mcg, Epi discontinue due to HTN and episodes of Vtach.
-CT output: 2 meds 150/370 , 2 pleur 150/365 in 12/24 hrs
-Impella 5.5 @ P4, plan for removal in OR today
-Hgb 7.5 today, will transfuse 1 unit PRBC's prior to OR. Has 1unit of RBC's and 1unit plts on hold also.
-Lactic acid is trending down - 0.8 today
-maintain swan/Cordis/a-line
-maintain Serna while Impella in
-current meds : ASA, Plavix, Lipitor, Amio, Protonix. Hoding BB while on Epi (preop BB was held as well d/t shiela 30-50s)
-encourage IS, OOB
Assessment / Plan
-
Assessment:
-s/p CABG x4 (CLEMONS- LAD, SVG-OM, SVG-Dx, SVG-RPDA); encompass LEXI FLORES #50 clip, direct Impella 5.5 placement on 01/26/[address] Castillo, pod #2
-Severe 3v CAD including 50% tubular LM
-BARRETT
-Ischemic CM(EF 20-25%) per TTE 01/12/25
-HFrEF
-PAFib S/p PVI Jul 2024, on Eliquis preop
-HTN
-HLD
-Class 2 obesity (BMI 36.7)
-Bradycardia preop
-Mild TR
-Trace MR
-LE edema
-Acute postop blood loss anemia - stable, no transfusion
-Acute postop thrombocytopenia/coagulopathy - s/p 1 unit platelet
-Acute postop hypovolemia with subsequent hypervolemia
-Acute postop atelectasis
Subjective
Procedure
-s/p CABG x4 (CLEMONS- LAD, SVG-OM, SVG-Dx, SVG-RPDA); encompass LEXI FLORES #50 clip, direct Impella 5.5 placement on 01/26/[address] Castillo
-
Date of Service: January 28, 2025
Objective Data
-
Lab Results
01/28/25 05:02
01/28/25 05:02
PT 18.5 Sec (11.4-14.6) H 01/28/25 05:02
INR 1.48 01/28/25 05:02
APTT 34.2 Sec (23.4-35.0) 01/28/25 05:02
Vital Signs
Vital Signs
Temp Pulse Resp BP Pulse Ox
98.7 F 77 18 114/65 97
01/28/25 05:00 01/28/25 05:00 01/28/25 05:00 01/28/25 05:00 01/28/25 05:00
CT Intake/Output/Weight
01/27/25 01/27/25 01/28/25
06:59 18:59 06:59
Intake Total 2059.2 / 3369.7 1558.7 / 2800.9 1242.2 / 2800.9
Output Total 1155 / 1755 760 / 1490 730 / 1490
Balance 904.2 / 1614.7 798.7 / 1310.9 512.2 / 1310.9
SaO2: 96
Physical Exam
-
General: AOx3
Cardiovascular: Regular rate & rhythm
Respiratory: Decreased Breath Sounds
Sternum: Stable
Incision: Dressing Intact
Extremities: No Edema
[2025-01-28 04:33] LABS: APTT 34.3 Sec (23.4-35.0); INR 1.47; PT 18.3 Sec (11.4-14.6)
[2025-01-28 04:34] LABS: Fibrinogen 301 MG/DL (199-459)
[2025-01-28 04:36] LABS: D-Dimer 0.65 ug/mlFEU (0.00-0.50)
--- NOTE | 2025-01-28 04:42 | ECGCV ---
Juan Miguel Steiner [facility] notified of ECG critical value identified by electronic interpretation on ECG completed on 01/28/25, at 0430.
[2025-01-28 05:20] LABS: % Basophils 0.1 % (0-2); % Immature Granulocytes 0.5 % (0-0.5); % Lymphocytes 11.5 % (20.5-51.1); % Monocytes 11.8 % (1.7-9.3); % Neutrophils 76.1 % (42.2-75.2); Absolute Immature Granulocytes 0.1 10^3/uL (0-0.05); Absolute Lymphocytes 1.8 10^3/uL (1.2-3.4); Absolute Monocytes 1.9 10^3/uL (0.1-0.6); Hematocrit 21.2 % (39.0-52.0); Hemoglobin 7.5 g/dL (13.0-18.0); Mean Corp Hgb Conc. 35.4 g/dL (33.0-37.0); Mean Corpuscular Hgb 32.2 pg (27.0-31.0); Mean Platelet Volume 10.3 fL (7.4-10.4); Nucleated Red Blood Cells % 0 % (-); Platelet Count 99 10^3/uL (130-400); Red Blood Cell Count 2.33 10^6/uL (4.70-6.10); Red Cell Dist. Width 13.5 % (11.5-14.5); White Blood Cell Count 15.7 10^3/uL (4.8-10.8)
[2025-01-28 05:29] LABS: INR 1.48; PT 18.5 Sec (11.4-14.6)
[2025-01-28 05:30] LABS: APTT 34.2 Sec (23.4-35.0); Fibrinogen 305 MG/DL (199-459)
[2025-01-28 05:32] LABS: D-Dimer 0.65 ug/mlFEU (0.00-0.50); Lactic Acid 0.9 mmol/L (0.7-2.0)
[2025-01-28 05:34] LABS: ALT (SGPT) 20 U/L (0-50); AST (SGOT) 42 U/L (17-59); Albumin 3.1 g/dl (3.5-5.0); Alkaline Phosphatase 35 U/L (38-126); Blood Urea Nitrogen 46 mg/dl (9-20); Calcium 7.8 mg/dl (8.4-10.2); Carbon Dioxide 25 mmol/L (22-30); Chloride 104 mmol/L (98-107); Estimated Creatinine Clearance 71 ml/min; Glucose 136 mg/dl (70-99); LDH 350 U/L (120-246); Magnesium 2.3 mg/dl (1.6-2.3); Sodium 133 mmol/L (135-145); Total Bilirubin 1.3 mg/dl (0.2-1.3); Total Protein 5.1 g/dl (6.3-8.2); eGFR > 60.00
--- NOTE | 2025-01-28 05:35 | PTCARENOTE ---
Addendum entered by Sarah Rodas RN 01/28/25 05:37:
And PLT 99 down from 149 yesterday
Original Note:
Notified CVPA that the patient's Hgb is 7.5 on AM labs
[2025-01-28] MEDS: TYLENOL 1000 MG PO ×2 (06:19→21:00)
[2025-01-28 07:03] LABS: Hematocrit 21.6 % (39.0-52.0); Hemoglobin 7.4 g/dL (13.0-18.0); Mean Corp Hgb Conc. 34.3 g/dL (33.0-37.0); Mean Corpuscular Hgb 31.9 pg (27.0-31.0); Mean Corpuscular Volume 93.1 fL (80.0-94.0); Mean Platelet Volume 10.6 fL (7.4-10.4); Platelet Count 100 10^3/uL (130-400); Red Blood Cell Count 2.32 10^6/uL (4.70-6.10); Red Cell Dist. Width 13.6 % (11.5-14.5); White Blood Cell Count 17.4 10^3/uL (4.8-10.8)
[2025-01-28] MEDS: PROTONIX 40 MG PO (08:11)
[2025-01-28] MEDS: MAGNESIUM OXIDE 500 MG PO ×2 (08:11→20:57)
[2025-01-28] MEDS: NEURONTIN 100 MG PO ×3 (08:11→21:00)
[2025-01-28] MEDS: PLAVIX 75 MG PO (08:11)
[2025-01-28] MEDS: MUCINEX 1200 MG PO ×2 (08:11→20:57)
[2025-01-28] MEDS: PACERONE 200 MG PO ×3 (08:11→21:00)
[2025-01-28] MEDS: SENOKOT-S 1 TABLET PO ×2 (08:11→20:57)
[2025-01-28] MEDS: BACTROBAN 2% OINTMENT 1 APPLIC NASAL ×2 (08:13→20:57)
[2025-01-28] MEDS: LIDOCAINE 4% PATCH TOPICAL (08:13)
[2025-01-28] MEDS: LOW STRENGTH ASPIRIN 81 MG PO (08:13)
--- NOTE | 2025-01-28 08:22 | W.PN.INTV ---
Today's Communication / Plan
Recommendations
Continue BiPAP for now while diuresing, and would continue with BiPAP with sleep and prn during the day
Can give the patient a break from BiPAP in a couple hours assuming he is breathing comfortably and saturating >90-94% with O2 requirements at 6L/min or less
Would allow him to rest today in bed and not encourage him to ambulate given is SOB
Pain control
Mucinex
Aspiration precautions; elevate HOB
Goal BG 110�140; now off insulin gtt
Monitor for fevers and/or development of UTI symptoms in which case antibiotic should be started with ceftriaxone and treat for 6-7 days; follow up urine Cx
Art Glass Setter services will continue to follow along while patient remains CVICU status. Once transferred to CVICU�telemetry status, Art Glass Setter/Pulmonary service will sign off assuming that there are no active pulmonary issues.
Assessment
-
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
suspected sleep apnea, aortic atherosclerosis, dyslipidemia, and prediabetes who presents for heart catheterization. Left and right heart catheterization performed 01/21/2025 showed postcapillary pulm hypertension with an elevated wedge of 40, LVEDP
35, CO 5.6, CI 2.2, PVR 1.4 and SVR 13.9 Wood units. LHC showed multivessel CAD involving proximal LAD, large diagonal branch, proximal circumflex, and total occlusion of the RCA which is collateralized in a right to right and [id number]-celxw
fashion. CT surgery consulted. Patient underwent a CABG x 4 on 01/26/2025 with Impella inserted and postoperatively was transferred to the CVICU with malted milk mixer services consulted for additional management/recommendations.
Chronic conditions TELEPHONE SERVICE REPRESENTATIVE: Multivessel CAD, A-fib on Eliquis, cardiomegaly, obesity chronic HFrEF, bradycardia (slow A-fib), hypertension, pulmonary hypertension, suspected sleep apnea, aortic atherosclerosis, dyslipidemia, prediabetes
Impression:
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
#Abnormal urinalysis with +3 leukocyte esterase, +16�20 urine WBC suspicious for UTI
#Hyperglycemia
#Hypokalemia - resolved
#Hypocalcemia - resolved
#Lactic acidosis - resolved
#Chronic HFrEF with RV enlargement (per TTE from 01/12/2025)
#Post�capillary pulmonary hypertension (moderate severity with mPAP 52mmHg with PCWP: 40, TP and CO/CI: 5.6, 2.2 and PVR: 1.4 RUIZ via RHC on 01/21/2025)
Plan:
Patient successfully extubated on 01/26/2025 to nasal cannula, and has been doing well on 2 L/min nasal cannula however this morning Impella was removed and he developed significant shortness of breath at this time, possibly from lying flat now
without the Impella support in addition to blood products being transfused makes acute pulmonary edema a very likely scenario that cause his symptoms
Patient is currently on BiPAP and would continue with this while diuresing and keeping SBP <140
According to the RN, 2 mg IV Bumex was given to him and he has already urinated 400 cc
Continue strict I/O and trend UOP
Would continue the BiPAP for another few hours and then can give him a break from it, but would use it again tonight with sleep and prn during the day if needed for SOB
Maintain SpO2 >90-94% and wean down supplemental O2 flow rate as tolerated
prn nebulized bronchodilators - not currently bronchospastic
Encourage incentive spirometer use q1hr while awake
Continue Mucinex (started 01/27) for pulmonary toilet purposes as he has thick secretions with difficulty expectorating
May need to start nebulized hypertonic saline 3% +/- vest therapy with nebulized bronchodilators if he continues to have difficulty expectorating -->would hold off on this for now given his acute respiratory issue and giving further mucolytics while
on BiPAP would place him at an increased risk for aspiration
Pulmonary artery catheter parameters will be followed
Pressors/antihypertensive/inotropes/diuretics will be provided as needed
Maintain MAP>65
Replete electrolytes with K>4, Mg>2
Impella now DC'd as of today (01/28)
Monitor chest tube output (bilateral pleural chest tubes + mediastinal chest tubes x 2)
Continue to monitor off antibiotics
Trend WBC and monitor for fevers
Patient's urinalysis from 01/26/2025 did show +3 leukocyte esterase with 16�20 urine WBC - urine culture is still showing NGTD
If he spikes a fever or if he develops urinary symptoms, then would treat him for UTI for 6-7 days
Monitor hemoglobin
Monitor platelet count and coags
Transfuse blood products as needed to maintain Hb>7g/dL, plt>50k (given post-operative status)
CT surgery managing chest tubes
Monitor blood sugar to maintain euglycemia with goal BG 110-140
Insulin drip now off since 01/27; recommend to use ISS to keep BG at goal as above
Aspiration precautions
DVT prophylaxis
Early nutrition
Early mobilization
Art Glass Setter services will continue to follow along while patient remains CVICU status. Once transferred to CVICU�telemetry status, Art Glass Setter/Pulmonary service will sign off assuming that there are no active pulmonary issues.
Critical care statement: A total of 41 minutes of critical care time was provided for this patient today. This includes management of ventilator, spontaneous breathing trial, arterial blood gases, pressors, of unstable vital signs, evaluation of the
patient at bedside, reviewing the patient's pertinent medical records including radiographs, microbiology, laboratory evaluations, and discussion with primary team and critical care nursing.
Subjective Dataa
Subjective Data
Date of Service:
Date of Service: January 28, 2025
Chief Complaint: Art Glass Setter Follow Up
Subjective:
Patient seen today at bedside. Developed shortness of breath today after Impella was removed. Currently on BiPAP which he says is helping him breathe easier. Received 2 units PRBCs this morning and also 1 unit platelets which may have
contributed. CXR later this morning showed left lower lobe + right lower lobe postoperative atelectasis. Patient currently denies any chest pain. He is on milrinone at 0.25 mcg/kg/min, he has been on and off nitroglycerin drip at 20 mcg/min, and
is currently on BiPAP 16/7 cmH2O with VTe 1.26 L and breathing at 20 breaths/min. Current heart rate 82, BP via A-line 146/52, PAP 42/15, CO/CI: 6.47/2.64, respectively. He saturating 95%.
Review of Systems
General: Other (Unobtainable as patient is on BiPAP and appears drowsy)
Objective Data
Data Reviewed
Vital Signs / I&O / Oxygen:
Vital Signs
Temp Pulse Resp BP Pulse Ox
98.6 F 75 14 134/78 96
01/28/25 09:00 01/28/25 09:00 01/28/25 09:00 01/28/25 09:00 01/28/25 09:26
Intake and Output
01/27/25 01/28/25 01/29/25
06:59 06:59 06:59
Intake Total 3045.2 / 3369.7 2878.4 / 2905.9 85.5 / 85.5
Output Total 1705 / 1755 1575 / 1620 130 / 130
Balance 1340.2 / 1614.7 1303.4 / 1285.9 -44.5 / -44.5
SaO2 [CPAP] 98
SaO2 [SIMV] 98
SaO2 96
Nasal Cannula flow liters per 2
minute
Physical Exam
General: Respiratory Distress (Mild - currently on BiPAP), Comfortable, Chills (negative) and Sweats (negative)
HEENT: Normocephalic, Anicteric and Other (BiPAP full face mask on face with good seal)
Cardiovascular: S1-S2 and Peripheral Edema (negative)
Respiratory: Wheeze (negative), Crackles (bibasilar), Rhonchi (negative), Accessory Resp Muscle Use (mild during exertion), Stridor (negative) and Chest Tube (bilateral pleural chest tubes + mediastinal chest tubes x 2)
GI: Soft, Distended (Abdominal obesity), Non Tender and Normal Bowel Sounds
Neurology: Tremors (negative) and Other (Awake although drowsy while on BiPAP; responsive and engaging when I speak with him, although difficult for him to speak given the BiPAP machine is loud)
Skin: Warm, Dry, Jaundice (negative) and Rash (negative)
Labs/Micro/Reports
Lab Data
01/28/25 06:42
01/28/25 05:02
Laboratory Results
01/28/25 01/28/25
04:08 05:02
PT 18.3 H 18.5 H
INR 1.47 1.48
APTT 34.3 34.2
Microbiology
01/26/25 07:10 Urine Urine Culture - Final
NO GROWTH
--- NOTE | 2025-01-28 08:37 | PTCARENOTE ---
assumed care of pt from previous shift RN, sinus rhythm/1st degree HB on tele, + peripheral pulses, +1 edema to bilateral upper and lower extremities. Epicardial V wire insulated. Left radial carlos leveled and zeroed, BP 120/65, Right IJ cordis w
swan floated to 52, PAP 38/15, CVP 9. Lungs diminished, pox 95% on 6L NC, coughing and deep breathing encouraged. +bs, tolerating PO intake. Serna draining markos urine. CT x4 w red drainage. Right CW impella 5.5 maintained at P4 w site intact. Right
groin and bilateral SVG sites stable. Plan of care reviewed and questions encouraged.
DRIPS:
Nitro 50mcg
--- NOTE | 2025-01-28 09:41 | PTCARENOTE ---
1 unit of PRBC transfused as ordered. Dr. Castillo as bedside. Pt for 2nd unit of PRBC. Per Dr. Castillo 2nd unit to be given in OR. Blood bank made aware, Sue from OR made aware that a unit of blood will be being sent from the blood bank.
--- NOTE | 2025-01-28 10:10 | PTCARENOTE ---
pt taken to CVOR for impella removal.
--- NOTE | 2025-01-28 11:13 | W.IMMPOSTOP ---
Addendum entered and electronically signed by Joseph Castillo MD 01/28/25 11:53:
[id number]
Original Note:
Surgical Immed Post Op Note
-
CARDIAC SURGERY OPERATIVE NOTE:
Preoperative Dx:
LVEF 20-25% w/ MVCAD; POD#2 s/p CABG x 4, [employer] MAZE, ELAA, planned Impella 5.5 placement
Anemia of unclear etiology (multifactorial)
ECHO yesterday w/ LVEF improved to 30%
Postoperative Dx:
Same
Procedures:
1) Removal of Impella 5.5
Surgeon:
Joseph Castillo M.D.
Contract Accountant:
Stefanie Ramírez P.A.-C.
Anesthesia:
Lincoln Calhoun M.D. and Deb GarcíaR.N.A.
Findings:
Impella 5.5 removed from 10mm Hemashield graft w/o resistance
Graft backbleed, resected, & controlled w/ 4 large surgical clips and oversewn with 5-[address] output
Transfusions:
1U PRBC and 1pk PLTs
Complications:
None
Condition:
70 sinus. 148/74. 70/39. CVP 32. CO/CI: 99%
GTTS: milrinone 0.25 (started immediately prior to Impella removal), NTG 50
Stable/guarded to CVICU
Check labs q3h x 4; then q6h to assure stability of Hgb given unclear source of decline
[2025-01-28] MEDS: ANCEF 15 MG IV (12:14)
[2025-01-28] MEDS: BUMEX 2 MG IV ×2 (12:14→16:11)
[2025-01-28 12:23] LABS: Hematocrit 23.9 % (39.0-52.0); Hemoglobin 8.3 g/dL (13.0-18.0); Mean Corp Hgb Conc. 34.7 g/dL (33.0-37.0); Mean Corpuscular Hgb 31.6 pg (27.0-31.0); Mean Corpuscular Volume 90.9 fL (80.0-94.0); Mean Platelet Volume 10.3 fL (7.4-10.4); Platelet Count 99 10^3/uL (130-400); Red Blood Cell Count 2.63 10^6/uL (4.70-6.10); Red Cell Dist. Width 14.1 % (11.5-14.5); White Blood Cell Count 16.2 10^3/uL (4.8-10.8)
--- NOTE | 2025-01-28 12:32 | PTCARENOTE ---
received pt from the CVOR into 2262, pt is awake, slightly lethargic, answers questions appropriately, MOORE, sinus rhythm on tele w HR 80's, BP via left radial carlos 140/40's, epicardial V wire remains insulated, Lungs w crackles 1/2 up bilaterally,
pox on simple mask 6L 94%. Pt w wheezing and SOB. Bumex administered as ordered, BIPAP initiated by RT per CT CHARLENE. CTs w red drainage, palmer draining yellow, surgical sites stable. Right IJ cordis w swan, cvp 7, pap 42/16. all lines leveled and
zeroed. pt appears more comfortable on BIPAP. Will continue to monitor.
DRIPS: Nitro 50 mcg/min
Milrinone 0.25 mcg/kg/min
--- NOTE | 2025-01-28 12:56 | W.PN.CARDCBS ---
Addendum entered and electronically signed by Bony Fleming MD 01/28/25 15:06:
He was seen and examined by me.
He is able to communicate that he is not in pain and is breathing comfortably
He is sitting up in bed on BiPap and appears comfortable
RRR, Nl S1 and S2, Nl S1 and S2, No S3 or S4, 1/6 AHMS, no rubs
Lungs coarse BS b/l anteriorly
ABD: soft, BS+, NT/ND
Extrem: No cyanosis, clubbing. 1+ edema of B/L LE
s/p CABG x4, MAZE, BRITTA clip
Cardiogenic Shock
placement of Impella 5.5
removal of Impella 5.5 on 01/28
MVCAD by cath 01/21/25
Ischemic CM EF 20-25%
HFrEF
PAFib hx PVI Jul 2024 has been in SR
HTN
Sinus Bradycardia
Hemodynamically improving
Impella out this AM
Remains on IV Milrinone and Ntg, wean as tolerates
PAP 39/14 with CO of 6.4, CI 2.6, SVR 717
Some volume overload
IV Bumex diuresis
He was not on BB preop due to bradycardia, holding post op due to bradycardia. Holding Entresto and aldactone for now, eventually would attempt to resume GDMT for known ICM with HFrEF
Re AF, he did recur with AF as outpatient prior to this admission so was on apixaban also had AF on 01.24, has been in SR post-op. Apixaban is currently on hold
He underwent BRITTA clipping, but ANNA could not be passed, no ANNA imaging post BRITTA clipping so will need to plan to eventually resume apixaban until adequacy of BRITTA clipping can be assessed
Reattempt ANNA at some point or consider Watchman protocol CTA which should be able to assess adequacy of the Atriclip
Original Note:
Today's Communication / Plan
-
s/p impella removal in OR 01/28
SOB. s/p 2mg IV bumex
on milrinone, IV nitro gtt
labs/CXR pending
currently on NRB, wean as able
Impression / Plan
-
[employer] Consultant: Dr. Zayas
Primary EP: Dr. Troy Fleming
Impression:
s/p CABG x4, MAZE, BRITTA clip, placement of impella 5.5
MVCAD by cath 01/21/25
Ischemic CM EF 20-25%
HFrEF
PAFib hx PVI Jul 2024
HTN
Bradycardia
Cath Jan 21 2025:
INDICATION: This is a 79-year-old gentleman with a past medical history notable for hypertension, atrial fibrillation, and dilated cardiomyopathy with recent worsening in LVEF. He underwent pulmonary vein isolation in July 2024 and experienced
a recent worsening in symptoms of exertional dyspnea as well as development of lower extremity edema. A recent echocardiogram was notable for worsening in LVEF and he is now referred for coronary angiography. He denies any chest discomfort but
does report a significant change in functional capacity with dyspnea occurring at very low levels of exertion.
HEMODYNAMICS : mmHg
RA (m) : 25
RV (s/d) : 87/13, 22
PA (s/d, m) : 91/33, 48
PCWP (m) : 40
AO (s/d, m) : 156/72, 103
LV (s/d) : 167/24
LVEDP : 35
Estimated Ladan Cardiac Output: 5.6 L / min and Cardiac Index: 2.2 L/ min / m-2
Systemic vascular resistance: 13.9 Wood units or 1114 tugqf-mhc-dr(-5)
Pulmonary vascular resistance: 1.4 Wood units or 114 nieem-khl-km(-5)
CORONARY FINDINGS :
Dominance: Right
LEFT MAIN: Tubular 50% stenosis
LEFT ANTERIOR DESCENDING: The LAD arises normally from the left main and has a complex proximal 95% stenosis involving the origin of a large first diagonal branch. The mid to distal LAD has minor irregularities.
CIRCUMFLEX: The circumflex is a large-caliber nondominant vessel with a 95% proximal stenosis. The circumflex supplies a single large bifurcating obtuse marginal branch.
RIGHT CORONARY ARTERY: The right coronary artery is occluded proximally with bridging collaterals and right to right collaterals as well as [id number] collaterals from circumflex and LAD
VENTRICULOGRAPHY: Left ventriculography ejection fraction is visually estimated at 20-25%
CONCLUSIONS
1. Multivessel coronary artery disease involving proximal LAD, large diagonal branch, proximal circumflex, and total occlusion of the RCA which is collateralized in a right to right and velv-cd-rhfpe fashion
2. LV dysfunction with elevated right and left ventricular filling pressures. Reasonable cardiac output and cardiac index
RECOMMENDATIONS
1. Patient will be admitted and undergo diuresis.
2. Consult CT surgery to consider coronary artery bypass grafting with targets to LAD, diagonal, OM, and PDA/PLB, left atrial appendage ligation +/- MAZE
3. Significant LV dysfunction on good medical therapy. Cannot add oral beta maude given significant underlying bradycardia
Echo Jan 12 2025: Dilated cardiomyopathy with severely reduced left ventricular systolic function , EF 20-25%, Enlarged right ventricle with overall preserved RV systolic functio, Biatrial dilatation, Mild tricuspid regurgitation, PASP 68 mmHg,
AFib with slow response.
Outside echo January 2024: EF 45%, RALEIGH 6.1cm, mild to mod TR, RV dilated
ECHO 01/27/25: Limited study, Definity used, Impella initially at P4 and additional images obtained with support reduced to P2. LV dilated and EF 30%, global hypokinesis with akinesis and anteroseptum, no dramatic change was noted with lowering of
Impella support. Moderate LA dilatation, structurally normal MV, AV, TV
Plan:
-s/p CABG x4, MAZE, BRITTA clip, placement of impella 5.5. concern for sluggish RV visually intraop
-in OR, team unable to pass ANNA probe and GI was called for assistance. EGD intra op showed upper esophageal sphincter moderately hypertensive.
-echo with improvement in EF to 30% 01/27.
-impella 5.5 removed in OR 01/28/25.
-received 2 U PRBCs and 1 plts intraop.
-upon returning to CVICU from OR, patient with SOB. with significant mucus production. was also noted to be wheezing during case not improved with albuterol. was diuresed preoperatively to weight of 271 pounds, if accurate up to 288 pounds today. IV
bumex 2mg stat given.
-repeat labs and CXR pending
-EKG SR with NSSTS, possible pericarditis, reviewed by me. no rub on exam
-currently on milrinone @0.25 and IV nitro @100. wean as able
-he was not on BB preop due to bradycardia, holding post op due to bradycardia. holding entresto and aldactone for now, eventually would attempt to resume GDMT for known ICM
-QTc was prolonged by 01/26 EKG. repeat EKG for today ordered but not yet completed. eventual OAC (was on eliquis preop).
-continue post op care
-Discussed with nursing, CT surgery [facility]
Progress Note - [employer] Consultant
Subjective
Date of Service: January 28, 2025
reports SOB, increased mucus, inability to cough
Objective
Labs:
Labs
Hgb 8.3 g/dL (13.0-18.0) L 01/28/25 11:49
Hct 23.9 % (39.0-52.0) L 01/28/25 11:49
Plt Count 99 10^3/uL (130-400) L 01/28/25 11:49
PT 18.5 Sec (11.4-14.6) H 01/28/25 05:02
INR 1.48 01/28/25 05:02
APTT 34.2 Sec (23.4-35.0) 01/28/25 05:02
Sodium 133 mmol/L (135-145) L 01/28/25 05:02
Potassium 5.0 mmol/L (3.5-5.1) 01/28/25 05:02
BUN 46 mg/dl (9-20) H 01/28/25 05:02
Creatinine 1.2 mg/dL (0.7-1.3) 01/28/25 05:02
Glucose 136 mg/dl (70-99) H 01/28/25 05:02
Vital Signs and I&O:
Vital Signs
Temp Pulse Resp BP Pulse Ox
98.6 F 85 18 11257 96
01/28/25 12:30 01/28/25 12:18 01/28/25 12:30 01/28/25 12:18 01/28/25 12:30
Vital Signs
Temp Pulse Resp BP Pulse Ox
98.6 F 85 18 11257 96
01/28/25 12:30 01/28/25 12:18 01/28/25 12:30 01/28/25 12:18 01/28/25 12:30
Intake & Output
01/26/25 01/27/25 01/28/25 01/29/25
07:59 07:59 07:59 07:59
Intake Total 110 / 110 3369.7 / 3431.2 2581.4 / 2608.9 413.3 / 413.3
Output Total 1755 / 1820 1570 / 1595 240 / 240
Balance 110 / 110 1614.7 / 1611.2 1011.4 / 1013.9 173.3 / 173.3
Physical Exam
Physical Exam
GEN: No distress, awake, alert, oriented x3. labored breathing. on NRB
HEENT: supple, anicteric, mmm, eomi
LUNGS: Scattered wheezes, crackles at bases
CV: Reg, S1/S2, no murmur
ABD: soft, BS+, NT/ND
EXT: No cyanosis, clubbing. 1+ edema of B/L LE
NEURO: Gross non-focal
SKIN: Warm, pink, dry. No rash. Sternotomy dressing c/d/i.
[2025-01-28 13:28] LABS: B.E. -0.1 mmol/L; HCO3 23.1 mmol/L (21-28); Ionized Calcium 1.05 mMOL/L (1.15-1.33); O2 Saturation % 99.1 % (94-98); PCO2 31 mmHg (35-48); PO2 109 mmHg (83-108); pH 7.48 (7.35-7.45)
[2025-01-28] MEDS: CALCIUM GLUCONATE 100 IV (13:35)
[2025-01-28] MEDS: TYLENOL PO (13:39)
[2025-01-28] MEDS: NSS 500 IV (13:39)
--- NOTE | 2025-01-28 13:51 | CM ---
Chart reviewed. Patient went back to the OR today for Impella removal. Patient is independent of ADLS, lives in a 3 [address], resides mostly on 1st and 2nd floors, 2 MARILEE, 0 DME. Patient's daughter has been staying with him since the holidays and plan
on staying there to assist after surgery. Plan is for the patient to return home with CT Transitional RN. CM to follow
[2025-01-28 14:28] LABS: Hematocrit 24.7 % (39.0-52.0); Hemoglobin 8.9 g/dL (13.0-18.0); Mean Corpuscular Hgb 32.1 pg (27.0-31.0); Mean Corpuscular Volume 89.2 fL (80.0-94.0); Mean Platelet Volume 10.3 fL (7.4-10.4); Platelet Count 107 10^3/uL (130-400); Red Blood Cell Count 2.77 10^6/uL (4.70-6.10); Red Cell Dist. Width 14.3 % (11.5-14.5); White Blood Cell Count 16.4 10^3/uL (4.8-10.8)
[2025-01-28 14:46] LABS: Blood Urea Nitrogen 50 mg/dl (9-20); Calcium 8.1 mg/dl (8.4-10.2); Carbon Dioxide 25 mmol/L (22-30); Chloride 103 mmol/L (98-107); Estimated Creatinine Clearance 71 ml/min; Glucose 158 mg/dl (70-99); Magnesium 2.2 mg/dl (1.6-2.3); Potassium 4.2 mmol/L (3.5-5.1); Sodium 133 mmol/L (135-145); eGFR > 60.00
[2025-01-28] MEDS: LIPITOR 80 MG PO (16:06)
--- NOTE | 2025-01-28 16:27 | PTCARENOTE ---
CI 4.01/ CO 9.83/ SVR 472. CT CHARLENE made aware.
--- NOTE | 2025-01-28 17:27 | PTCARENOTE ---
Daughter Marisol updated via telephone, emotional support provided.
[2025-01-28 17:31] LABS: Hematocrit 24.5 % (39.0-52.0); Hemoglobin 8.8 g/dL (13.0-18.0); Mean Corp Hgb Conc. 35.9 g/dL (33.0-37.0); Mean Corpuscular Hgb 32.1 pg (27.0-31.0); Mean Corpuscular Volume 89.4 fL (80.0-94.0); Platelet Count 102 10^3/uL (130-400); Red Blood Cell Count 2.74 10^6/uL (4.70-6.10); Red Cell Dist. Width 14.3 % (11.5-14.5); White Blood Cell Count 16.9 10^3/uL (4.8-10.8)
--- NOTE | 2025-01-28 20:00 | PTCARENOTE ---
Assumed care of the patient at 1900. Patient AOx3, drowsy. SR on CM, v wire insulated, pulses palpable, +1 edema noted in UE/LEs, heart tones audible, rub heard on auscultation. Lungs dim throughout, 4LNC, no crackles appreciated at this time, CT x4
to -20 cm wall suction, no air leak, tidaling, or crepitus noted. Normoactive BS, abdomen round, SNT, continues to endorse poor appetite. Serna catheter in place draining clear yellow urine. All surgical sites intact. On nitro, titrated per
protocol, as well as milrinone. RIJ Cordis/Chandler Iram catheter @52, L radial art line, PIVx1; all applicable lines leveled and zeroed. See nursing worklist for additional intervention details.
[2025-01-28] MEDS: PRIMACOR 20 MG 100 IV (21:22)
[2025-01-29] VITALS (35 sets, daily range): BP systolic 89–132; BP diastolic 49–69; PULSE 81; O2SAT 97–98; BMI 38.7
[2025-01-29 00:37] LABS: Hemoglobin 8.1 g/dL (13.0-18.0)
--- NOTE | 2025-01-29 01:04 | PTCARENOTE ---
Patient in bed, attempting to sleep between care. Expressed frustration for the lights and noise, therapeutic communication utilized, patient offered eye mask to help with sleeping, call villafuerte within reach, assessment of needs ongoing.
Nitro titrated per protocol, see work list.
[2025-01-29] MEDS: NITROGLYCERIN PREMIX 250 IV (02:30)
--- NOTE | 2025-01-29 04:00 | PTCARENOTE ---
Assessment relatively unchanged, patient sleeping between care, IV bumex for hypertension despite Nitro per CVPA. Nitro at 70 - was 20 at the start of this shift, CVPA notified. Patient in better spirits this AM.
--- NOTE | 2025-01-29 04:00 | PTCARENOTE ---
Assessment relatively unchanged, patient sleeping between care, IV bumex for hypertension despite Nitro per CVPA. Patient in better spirits in AM.
[2025-01-29] MEDS: BUMEX 2 MG IV (04:04)
--- NOTE | 2025-01-29 04:10 | W.PN.CT ---
Today's Communication / Plan
-
-pod #3
-CI >2.2, SBP of 120-130's overnight, NTG at 70mcg, Milrinone at 0.25.
-CT output: 2 meds 70/145 , 2 pleur 110/260 in 12/[address]'s
-Hgb pending
-maintain swan/Cordis/a-line until off milrinone
-maintain Serna for accurate I/O. UO 1180/2615 for 12/24hrs.
-current meds : ASA, Plavix, Lipitor, Amio, Protonix. Start BBl once off milrinone
-encourage IS, OOB
Assessment / Plan
-
Assessment:
-s/p CABG x4 (CLEMONS- LAD, SVG-OM, SVG-Dx, SVG-RPDA); encompass LEXI FLORES #50 clip, direct Impella 5.5 placement on 01/26/[address] Castillo, pod #3
Impella removed on 01/28/25
-Severe 3v CAD including 50% tubular LM
-BARRETT
-Ischemic CM(EF 20-25%) per TTE 01/12/25
-HFrEF
-PAFib S/p PVI Jul 2024, on Eliquis preop
-HTN
-HLD
-Class 2 obesity (BMI 36.7)
-Bradycardia preop
-Mild TR
-Trace MR
-LE edema
-Acute postop blood loss anemia - recieved 2 units RBC's for impella removal
-Acute postop thrombocytopenia/coagulopathy - s/p 2 unit platelet
-Acute postop hypovolemia with subsequent hypervolemia
-Acute postop atelectasis
Subjective
Procedure
-s/p CABG x4 (CLEMONS- LAD, SVG-OM, SVG-Dx, SVG-RPDA); encompass JOSSIE FLORESAA #50 clip, direct Impella 5.5 placement on 01/26/[address] Castillo
-s/p Impella removal on 01/28/[address] Castillo
-
Date of Service: January 29, 2025
Objective Data
-
PT 18.5 Sec (11.4-14.6) H 01/28/25 05:02
INR 1.48 01/28/25 05:02
APTT 34.2 Sec (23.4-35.0) 01/28/25 05:02
Vital Signs
Vital Signs
Temp Pulse Resp BP Pulse Ox
98.8 F 82 18 131/52 92
01/29/25 03:00 01/29/25 04:04 01/29/25 03:10 01/29/25 04:04 01/29/25 03:10
CT Intake/Output/Weight
01/28/25 01/28/25 01/29/25
06:59 18:59 06:59
Intake Total 1319.7 / 2905.9 1259.1 / 1714.3 455.2 / 1714.3
Output Total 815 / 1620 1660 / 2505 845 / 2505
Balance 504.7 / 1285.9 -400.9 / -790.7 -389.8 / -790.7
SaO2: 92
Physical Exam
-
General: AOx3
Cardiovascular: Regular rate & rhythm
Respiratory: Decreased Breath Sounds
Sternum: Stable
Incision: Dressing Intact
Extremities: Edema +1
[2025-01-29 05:19] LABS: Hematocrit 22.1 % (39.0-52.0); Hemoglobin 8.1 g/dL (13.0-18.0); Mean Corp Hgb Conc. 36.7 g/dL (33.0-37.0); Mean Corpuscular Hgb 32.4 pg (27.0-31.0); Mean Corpuscular Volume 88.4 fL (80.0-94.0); Mean Platelet Volume 9.8 fL (7.4-10.4); Platelet Count 102 10^3/uL (130-400); Red Cell Dist. Width 14.1 % (11.5-14.5); White Blood Cell Count 14.6 10^3/uL (4.8-10.8)
[2025-01-29 05:28] LABS: INR 1.31; PT 16.6 Sec (11.4-14.6)
[2025-01-29 05:42] LABS: ALT (SGPT) 19 U/L (0-50); AST (SGOT) 33 U/L (17-59); Albumin 3.2 g/dl (3.5-5.0); Alkaline Phosphatase 45 U/L (38-126); Blood Urea Nitrogen 52 mg/dl (9-20); Calcium 7.7 mg/dl (8.4-10.2); Carbon Dioxide 27 mmol/L (22-30); Chloride 104 mmol/L (98-107); Estimated Creatinine Clearance 78 ml/min; Glucose 144 mg/dl (70-99); Magnesium 2.4 mg/dl (1.6-2.3); Potassium 3.9 mmol/L (3.5-5.1); Sodium 135 mmol/L (135-145); Total Bilirubin 1.6 mg/dl (0.2-1.3); Total Protein 5.3 g/dl (6.3-8.2); eGFR > 60.00
[2025-01-29] MEDS: TYLENOL PO ×2 (06:05→15:20)
[2025-01-29] MEDS: KCL 20 MEQ PO (06:07)
--- NOTE | 2025-01-29 06:59 | PTCARENOTE ---
Patient persistently hypertensive despite titrating Nitro to 120, CVPA made aware, awaiting orders
[2025-01-29] MEDS: PRIMACOR 20 MG 100 IV ×2 (07:34→23:07)
--- NOTE | 2025-01-29 07:55 | W.PN.ANS.POP ---
Anesthesia Post Operative
- Anesthesia Post Op Note
Vital Signs Stable-See Nursing Note: Yes
Airway Patent: Yes
Adequate Pain Control: Yes
Change in Mental Status: No
Current Postoperative Nausea & Vomiting: No
Anesthesia Complications: No
General Anesthetic Recall: No
Unplanned Admission: No
Post Op Hydration Adequate: Yes
[2025-01-29] MEDS: MAGNESIUM OXIDE PO (08:00)
--- NOTE | 2025-01-29 08:00 | PTCARENOTE ---
pt received from previous RN, oriented, in bed. SR w/ 1st degree AVB/BBB, prolonged QT on the monitor, HR 80s. +rub. V wire insulated. SBP 110-140s. Nitro gtt running as ordered. PAP 40s/10s, CVP ~4-8. Milrinone gtt running as ordered. palpable
pulses. pt on RA, 92-94% POX. lungs coarse anteriorly. harsh productive cough. IS encouraged. CTx4, +1 air leak in Med CTs, PA Harmeet aware. pt abdomen round, s/n, states has intermittent nausea. poor appetite. Serna in place, clear yellow urine.
sternal aquacel intact, CT site c/d/i. 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 RIJ cordis/swan maintained. L radial Lexy flushed, zeroed, and calibrated. PIV. see worklist for VS, I&O, and assessment.
[2025-01-29] MEDS: MUCINEX 1200 MG PO ×2 (08:26→21:04)
[2025-01-29] MEDS: NEURONTIN 100 MG PO ×3 (08:26→21:03)
[2025-01-29] MEDS: PLAVIX 75 MG PO (08:26)
[2025-01-29] MEDS: LIDOCAINE 4% PATCH 1 PATCH TOPICAL (08:27)
[2025-01-29] MEDS: PACERONE 200 MG PO ×3 (08:27→21:06)
[2025-01-29] MEDS: PROTONIX 40 MG PO (08:27)
[2025-01-29] MEDS: LOW STRENGTH ASPIRIN 81 MG PO (08:27)
[2025-01-29] MEDS: SENOKOT-S 1 TABLET PO ×2 (08:27→21:04)
[2025-01-29] MEDS: KCL 50 IV (08:27)
[2025-01-29] MEDS: BACTROBAN 2% OINTMENT 1 APPLIC NASAL ×2 (08:28→21:05)
--- NOTE | 2025-01-29 08:28 | W.PN.INTV ---
Today's Communication / Plan
Recommendations
Markedly improved respiratory status today
Continue with milrinone + Levophed
Maintain CI >2+ MAP >65�70
Pain control
Mucinex
Aspiration precautions; elevate HOB
Goal BG 110�140; now off insulin gtt
Monitor for fevers and/or development of UTI symptoms in which case antibiotic should be started with ceftriaxone and treat for 6-7 days; follow up urine Cx
Sheet Metal Worker services will continue to follow along while patient remains CVICU status. Once transferred to CVICU�telemetry status, Sheet Metal Worker/Pulmonary service will sign off assuming that there are no active pulmonary issues.
Assessment
-
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
suspected sleep apnea, aortic atherosclerosis, dyslipidemia, and prediabetes who presents for heart catheterization. Left and right heart catheterization performed 01/21/2025 showed postcapillary pulm hypertension with an elevated wedge of 40, LVEDP
35, CO 5.6, CI 2.2, PVR 1.4 and SVR 13.9 Wood units. LHC showed multivessel CAD involving proximal LAD, large diagonal branch, proximal circumflex, and total occlusion of the RCA which is collateralized in a right to right and [id number]
fashion. CT surgery consulted. Patient underwent a CABG x 4 on 01/26/2025 with Impella inserted and postoperatively was transferred to the CVICU with picture booker services consulted for additional management/recommendations.
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
Impression:
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
#Abnormal urinalysis with +3 leukocyte esterase, +16�20 urine WBC suspicious for UTI
#Hyperglycemia
#Hypokalemia - resolved
#Hypocalcemia
#Lactic acidosis - resolved
#Chronic HFrEF with RV enlargement (per TTE from 01/12/2025)
#Post�capillary pulmonary hypertension (moderate severity with mPAP 52mmHg with PCWP: 40, TP and CO/CI: 5.6, 2.2 and PVR: 1.4 RUIZ via RHC on 01/21/2025)
Plan:
Patient successfully extubated on 01/26/2025 to nasal cannula, and has been doing well on 2 L/min nasal cannula however on morning of 01/28, Impella was removed and he developed significant shortness of breath, possibly from lying flat now without the
Impella support in addition to blood products being transfused makes acute pulmonary edema a very likely scenario that cause his symptoms
He was diuresed and as of today (01/29), he is much more comfortable and is currently on room air and saturating 95%
Continue with milrinone drip as well as Levophed
Continue with Entresto, holding for hypotension
Continue strict I/O and trend UOP
Would use BiPAP prn
Maintain SpO2 >90-94% and wean down supplemental O2 flow rate as tolerated
prn nebulized bronchodilators - not currently bronchospastic
Encourage incentive spirometer use q1hr while awake
Continue Mucinex (started 01/27) for pulmonary toilet purposes as he has thick secretions with difficulty expectorating
May need to start nebulized hypertonic saline 3% +/- vest therapy with nebulized bronchodilators if he continues to have difficulty expectorating -->would hold off on this for now given his acute respiratory issue and giving further mucolytics while
on BiPAP would place him at an increased risk for aspiration
Pulmonary artery catheter parameters will be followed
Pressors/antihypertensive/inotropes/diuretics will be provided as needed
Maintain MAP>65
Replete electrolytes with K>4, Mg>2
Impella now DC'd as of 01/28
Continue to monitor off antibiotics
Trend WBC and monitor for fevers
Patient's urinalysis from 01/26/2025 did show +3 leukocyte esterase with 16�20 urine WBC - urine culture showing NGTD
If he spikes a fever or if he develops urinary symptoms, then would treat him for UTI for 6-7 days
Monitor chest tube output (bilateral pleural chest tubes + mediastinal chest tubes x 2)
Monitor hemoglobin
Monitor platelet count and coags
Transfuse blood products as needed to maintain Hb>7g/dL, plt>50k (given post-operative status)
CT surgery managing chest tubes
Monitor blood sugar to maintain euglycemia with goal BG 110-140
Insulin drip now off since 01/27; recommend to use ISS to keep BG at goal as above
Aspiration precautions
DVT prophylaxis
Early nutrition
Early mobilization
Sheet Metal Worker services will continue to follow along while patient remains CVICU status. Once transferred to CVICU�telemetry status, Sheet Metal Worker/Pulmonary service will sign off assuming that there are no active pulmonary issues.
Critical care statement: A total of 38 minutes of critical care time was provided for this patient today. This includes management of ventilator, spontaneous breathing trial, arterial blood gases, pressors, of unstable vital signs, evaluation of the
patient at bedside, reviewing the patient's pertinent medical records including radiographs, microbiology, laboratory evaluations, and discussion with primary team and critical care nursing.
Subjective Dataa
Subjective Data
Date of Service:
Date of Service: January 29, 2025
Chief Complaint: Sheet Metal Worker Follow Up
Subjective:
Patient seen earlier this morning (late note entry). Currently on milrinone at 0.125 mcg/kg/min, and Levophed at 2 mcg/min. Patient's daughter, Marisol, present at bedside. Patient's heart rate is currently 81, PAP 38/9, BP via NIBP: 111/62 and
CO/CI: 5.96/2.43. Patient feels better although still is tired and has reduced energy but breathing is better today and cough has improved.
Review of Systems
General: Other (Negative unless mentioned above)
Objective Data
Data Reviewed
Vital Signs / I&O / Oxygen:
Vital Signs
Temp Pulse Resp BP Pulse Ox
98.9 F 74 22 98/54 95
01/29/25 11:00 01/29/25 10:00 01/29/25 11:00 01/29/25 10:00 01/29/25 11:00
Intake and Output
01/28/25 01/29/25 01/30/25
06:59 06:59 06:59
Intake Total 2878.4 / 2905.9 2370.7 / 2420.0 214.6 / 214.6
Output Total 1575 / 1620 3435 / 3635 590 / 590
Balance 1303.4 / 1285.9 -1064.3 / -1215.0 -375.4 / -375.4
SaO2 [CPAP] 98
SaO2 [SIMV] 98
SaO2 95
Nasal Cannula flow liters per 4
minute
Physical Exam
General: Respiratory Distress (negative), Comfortable, Chills (negative) and Sweats (negative)
HEENT: Normocephalic and Anicteric
Cardiovascular: S1-S2, Rub (Present) and Peripheral Edema (negative)
Respiratory: Wheeze (negative), Crackles (Bilateral), Rhonchi (negative), Accessory Resp Muscle Use (mild during exertion), Stridor (negative) and Chest Tube (bilateral pleural chest tubes + mediastinal chest tubes x 2)
GI: Soft, Distended (Abdominal obesity), Non Tender and Normal Bowel Sounds
Neurology: AO x 3 and Tremors (negative)
Skin: Warm, Dry, Jaundice (negative) and Rash (negative)
Labs/Micro/Reports
Lab Data
01/29/25 12:00
01/29/25 05:09
Laboratory Results
01/28/25 01/29/25
13:03 05:09
PT 16.6 H
INR 1.31
pH 7.48 H
pCO2 31 L
pO2 109 H
HCO3 23.1
O2 Delivery Level
Microbiology
01/26/25 07:10 Urine Urine Culture - Final
NO GROWTH
[2025-01-29] MEDS: ENTRESTO 49 MG/51 MG 1 TAB PO (08:29)
[2025-01-29] MEDS: LEVOPHED 250 IV (10:11)
--- NOTE | 2025-01-29 12:00 | PTCARENOTE ---
pt titrated off Nitro after Entresto dose, levo started per orders. L sohail Puhg dc'd per PA. OOB to chair w/ CR, tolerated well. IS encouraged.
--- NOTE | 2025-01-29 12:46 | W.PN.CARDCBS ---
Today's Communication / Plan
-
Wean milrinone as tolerates
Diuresis as blood pressure tolerates
Slow resumption of guideline directed medical therapy for heart failure with reduced ejection fraction
Impression / Plan
-
Orchid Hand: Dr. Zayas
Primary EP: Dr. Troy Fleming
Impression:
s/p CABG x4, MAZE, BRITTA clip, placement of impella 5.5
MVCAD by cath 01/21/25
Ischemic CM EF 20-25%
HFrEF
PAFib hx PVI Jul 2024
HTN
Bradycardia
Cath Jan 21 2025:
INDICATION: This is a 79-year-old gentleman with a past medical history notable for hypertension, atrial fibrillation, and dilated cardiomyopathy with recent worsening in LVEF. He underwent pulmonary vein isolation in July 2024 and experienced
a recent worsening in symptoms of exertional dyspnea as well as development of lower extremity edema. A recent echocardiogram was notable for worsening in LVEF and he is now referred for coronary angiography. He denies any chest discomfort but
does report a significant change in functional capacity with dyspnea occurring at very low levels of exertion.
HEMODYNAMICS : mmHg
RA (m) : 25
RV (s/d) : 87/13, 22
PA (s/d, m) : 91/33, 48
PCWP (m) : 40
AO (s/d, m) : 156/72, 103
LV (s/d) : 167/24
LVEDP : 35
Estimated Ladan Cardiac Output: 5.6 L / min and Cardiac Index: 2.2 L/ min / m-2
Systemic vascular resistance: 13.9 Wood units or 1114 kwqsw-kwv-to(-5)
Pulmonary vascular resistance: 1.4 Wood units or 114 pveju-frw-kv(-5)
CORONARY FINDINGS :
Dominance: Right
LEFT MAIN: Tubular 50% stenosis
LEFT ANTERIOR DESCENDING: The LAD arises normally from the left main and has a complex proximal 95% stenosis involving the origin of a large first diagonal branch. The mid to distal LAD has minor irregularities.
CIRCUMFLEX: The circumflex is a large-caliber nondominant vessel with a 95% proximal stenosis. The circumflex supplies a single large bifurcating obtuse marginal branch.
RIGHT CORONARY ARTERY: The right coronary artery is occluded proximally with bridging collaterals and right to right collaterals as well as [id number]-[id number]-lziwu collaterals from circumflex and LAD
VENTRICULOGRAPHY: Left ventriculography ejection fraction is visually estimated at 20-25%
CONCLUSIONS
1. Multivessel coronary artery disease involving proximal LAD, large diagonal branch, proximal circumflex, and total occlusion of the RCA which is collateralized in a right to right and cacf-xy-sowdz fashion
2. LV dysfunction with elevated right and left ventricular filling pressures. Reasonable cardiac output and cardiac index
RECOMMENDATIONS
1. Patient will be admitted and undergo diuresis.
2. Consult CT surgery to consider coronary artery bypass grafting with targets to LAD, diagonal, OM, and PDA/PLB, left atrial appendage ligation +/- MAZE
3. Significant LV dysfunction on good medical therapy. Cannot add oral beta maude given significant underlying bradycardia
Echo Jan 12 2025: Dilated cardiomyopathy with severely reduced left ventricular systolic function , EF 20-25%, Enlarged right ventricle with overall preserved RV systolic functio, Biatrial dilatation, Mild tricuspid regurgitation, PASP 68 mmHg,
AFib with slow response.
Outside echo January 2024: EF 45%, RALEIGH 6.1cm, mild to mod TR, RV dilated
ECHO 01/27/25: Limited study, Definity used, Impella initially at P4 and additional images obtained with support reduced to P2. LV dilated and EF 30%, global hypokinesis with akinesis and anteroseptum, no dramatic change was noted with lowering of
Impella support. Moderate LA dilatation, structurally normal MV, AV, TV
Plan:
s/p CABG x4, MAZE, BRITTA clip
Cardiogenic Shock
placement of Impella 5.5
removal of Impella 5.5 on 01/28
MVCAD by cath 01/21/25
Ischemic CM EF 20-25%
HFrEF
PAFib hx PVI Jul 2024 has been in SR
HTN
Sinus Bradycardia
He remains hemodynamically stable since removal of Impella yesterday January 28.
Milrinone is weaning, currently at 0.125mcg/kg/min, NTG is off
Plan to slowly get him back on guideline directed medical therapy for heart failure with reduced ejection fraction
Entresto started as of January 29, 2025
Re BB: was not on BB preop due to bradycardia. HRs are better, OK with attempting low dose Coreg 3.125 mg BID if /when BP allows
Eventually resume Aldactone
Overall volume status has improved with diuresis.
Re AF, he did recur with AF as outpatient prior to this admission so was on apixaban and also had AF on 01.24, has been in SR post-op. Apixaban is currently on hold
He underwent BRITTA clipping, but ANNA could not be passed, no ANNA imaging post BRITTA clipping so will need to plan to eventually resume apixaban until adequacy of BRITTA clipping can be assessed
Reattempt ANNA at some point or consider Watchman protocol CTA which should be able to assess adequacy of the Atriclip
Progress Note - Orchid Hand
Subjective
Date of Service: January 29, 2025
He is sitting in the chair looks comfortable and is smiling. Tells me that he feels ' pretty good'
Objective
Labs:
01/29/25 12:00
01/29/25 05:09
Labs
Hgb Cancelled 01/29/25 12:00
Hct 22.1 % (39.0-52.0) L 01/29/25 05:10
Plt Count 102 10^3/uL (130-400) L 01/29/25 05:10
PT 16.6 Sec (11.4-14.6) H 01/29/25 05:09
INR 1.31 01/29/25 05:09
APTT 34.2 Sec (23.4-35.0) 01/28/25 05:02
Sodium 135 mmol/L (135-145) 01/29/25 05:09
Potassium 3.9 mmol/L (3.5-5.1) 01/29/25 05:09
BUN 52 mg/dl (9-20) H 01/29/25 05:09
Creatinine 1.1 mg/dL (0.7-1.3) 01/29/25 05:09
Glucose 144 mg/dl (70-99) H 01/29/25 05:09
Vital Signs and I&O:
Vital Signs
Temp Pulse Resp BP Pulse Ox
98.9 F 80 26 94/52 95
01/29/25 12:00 01/29/25 12:02 01/29/25 12:02 01/29/25 12:02 01/29/25 11:00
Vital Signs
Temp Pulse Resp BP Pulse Ox
98.9 F 80 26 94/52 95
01/29/25 12:00 01/29/25 12:02 01/29/25 12:02 01/29/25 12:02 01/29/25 11:00
Intake & Output
01/27/25 01/28/25 01/29/25 01/30/25
06:59 06:59 06:59 06:59
Intake Total 3045.2 / 3369.7 2878.4 / 2905.9 2370.7 / 2420.0 243.3 / 243.3
Output Total 1705 / 1755 1575 / 1620 3435 / 3635 650 / 650
Balance 1340.2 / 1614.7 1303.4 / 1285.9 -1064.3 / -1215.0 -406.7 / -406.7
Physical Exam
Physical Exam
Elderly gentleman sitting in chair [place]-Iram catheter from the right IJ is in place
Regular rate and rhythm with normal S1 and S2, no S3 no S4 is grade 1/6 apical holosystolic murmur no rubs.
Lungs reduced inspiratory effort but otherwise clear
Extremities there is +1 pretibial edema bilaterally
[2025-01-29] MEDS: NSS IV (14:33)
[2025-01-29] MEDS: ANESTHETIC LOZENGE 1 LOZENGE PO ×2 (15:20→21:26)
--- NOTE | 2025-01-29 16:00 | PTCARENOTE ---
pt VSS, no changes in assessment. IS encouraged, 1500-1750ml. daughter at bedside. no c/o pain or SOB. tolerating diet, +flatus per pt.
[2025-01-29] MEDS: LIPITOR 80 MG PO (18:16)
--- NOTE | 2025-01-29 18:27 | PTCARENOTE ---
pt placed back to bed. RIJ cordis/swan dressing changed. chest tube dressing changed. titrated off levo gtt as tolerated per orders. PA aware.
--- NOTE | 2025-01-29 20:00 | PTCARENOTE ---
assumed care of patient @ 1900. recieved pt laying in bed, Aox3. NSR with 1st degree AVB with prolonged QT. BP stable 120s/60s. PAP 40s/10s CVP ~ 8. +pulses, +1 edema to uppers and lowers. V wire insulated. quiet rub present. Lungs clear, diminished
satting high 90s on room air. 1550 on IS. productive frequent cough brining up thick white mucus. 2 meds 2 pleurals to wall suction. meds with +1 air leak. no tidaling or crepitus noted. +BS. palmer present draining clear yellow urine. sternal
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 R IJ cordis in place, swan floated to 52. On milronone .125. pt resting comfortably in bed with call villafuerte within reach .
[2025-01-29] MEDS: ENTRESTO 24 MG/26 MG 1 TAB PO (21:03)
[2025-01-29] MEDS: TYLENOL 1000 MG PO (21:04)
[2025-01-29] MEDS: MAGNESIUM OXIDE 500 MG PO (21:04)
[2025-01-30] VITALS (22 sets, daily range): BP systolic 92–138; BP diastolic 53–79; BMI 38.9
--- NOTE | 2025-01-30 | PTCARENOTE ---
pt resting comfortably, no change in assessment .
--- NOTE | 2025-01-30 04:00 | PTCARENOTE ---
labs drawn and sent , pt resting comfortably, no change in assessment .
[2025-01-30 05:00] LABS: PT 15.5 Sec (11.4-14.6)
[2025-01-30 05:01] LABS: Hematocrit 23.6 % (39.0-52.0); Hemoglobin 8.3 g/dL (13.0-18.0); Mean Corp Hgb Conc. 35.2 g/dL (33.0-37.0); Mean Corpuscular Hgb 32.2 pg (27.0-31.0); Mean Corpuscular Volume 91.5 fL (80.0-94.0); Mean Platelet Volume 10.1 fL (7.4-10.4); Platelet Count 99 10^3/uL (130-400); Red Blood Cell Count 2.58 10^6/uL (4.70-6.10); Red Cell Dist. Width 13.8 % (11.5-14.5); White Blood Cell Count 10.6 10^3/uL (4.8-10.8)
[2025-01-30 05:10] LABS: ALT (SGPT) 17 U/L (0-50); AST (SGOT) 28 U/L (17-59); Alkaline Phosphatase 47 U/L (38-126); Blood Urea Nitrogen 42 mg/dl (9-20); Calcium 7.5 mg/dl (8.4-10.2); Carbon Dioxide 29 mmol/L (22-30); Chloride 107 mmol/L (98-107); Estimated Creatinine Clearance 107 ml/min; Glucose 118 mg/dl (70-99); Potassium 3.7 mmol/L (3.5-5.1); Sodium 136 mmol/L (135-145); Total Bilirubin 1.1 mg/dl (0.2-1.3); Total Protein 5.1 g/dl (6.3-8.2); eGFR > 60.00
--- NOTE | 2025-01-30 05:33 | W.PN.CT ---
Today's Communication / Plan
-
-pod #4
-CI 2.86, SBP of 120s overnight, NTG off, Milrinone at 0.125, Entresto started
-CT output: 2 meds 30/130 , 2 pleur 30/110 in 12/[address]
-maintain swan/Cordis/a-line until off milrinone
-maintain Serna for accurate I/O. UO 565/1585 for 12/24hrs.
-current meds : ASA, Plavix, Lipitor, Amio, Protonix.
-encourage IS, OOB
Assessment / Plan
-
Assessment:
-s/p CABG x4 (CLEMONS- LAD, SVG-OM, SVG-Dx, SVG-RPDA); encompass LEXI FLORES #50 clip, direct Impella 5.5 placement on 01/26/[address] Castillo, pod #4
Impella removed on 01/28/25
-Severe 3v CAD including 50% tubular LM
-BARRETT
-Ischemic CM(EF 20-25%) per TTE 01/12/25
-HFrEF
-PAFib S/p PVI Jul 2024, on Eliquis preop
-HTN
-HLD
-Class 2 obesity (BMI 36.7)
-Bradycardia preop
-Mild TR
-Trace MR
-LE edema
-Acute postop blood loss anemia - recieved 2 units RBC's for impella removal
-Acute postop thrombocytopenia/coagulopathy - s/p 2 unit platelet
-Acute postop hypovolemia with subsequent hypervolemia
-Acute postop atelectasis
Subjective
Procedure
-s/p CABG x4 (CLEMONS- LAD, SVG-OM, SVG-Dx, SVG-RPDA); encompass LEXI FLORES #50 clip, direct Impella 5.5 placement on 01/26/[address] Castillo
-s/p Impella removal on 01/28/[address] Castillo
-
Date of Service: January 30, 2025
Objective Data
-
Lab Results
01/30/25 04:28
01/30/25 04:28
PT 16.6 Sec (11.4-14.6) H 01/29/25 05:09
INR 1.31 01/29/25 05:09
APTT 34.2 Sec (23.4-35.0) 01/28/25 05:02
Vital Signs
Vital Signs
Temp Pulse Resp BP Pulse Ox
98.5 F 76 23 105/57 96
01/30/25 05:00 01/30/25 05:00 01/30/25 05:00 01/30/25 05:00 01/30/25 05:00
CT Intake/Output/Weight
01/29/25 01/29/25 01/30/25
06:59 18:59 06:59
Intake Total 1111.6 / 2420.0 940.3 / 1484.2 543.9 / 1484.2
Output Total 1775 / 3635 1200 / 1825 625 / 1825
Balance -663.4 / -1215.0 -259.7 / -340.8 -81.1 / -340.8
SaO2: 96
Physical Exam
-
General: Awake and Oriented
Cardiovascular: Regular rate & rhythm, No Murmurs and No Rub
Respiratory: Clear, Equal and Decreased Breath Sounds
Sternum: Stable
Incision: Clean, Dry and Intact
Extremities: Edema +1 and No Erythema
Data Reviewed
-
Lab Results: Results Reviewed
Medications: Active Meds Reviewed
Chest X-Ray: Report Reviewed
ECG: Report Reviewed
[2025-01-30] MEDS: KCL 100 IV (06:13)
[2025-01-30] MEDS: CALCIUM GLUCONATE 100 IV (06:15)
--- NOTE | 2025-01-30 08:11 | W.PN.INTV ---
Today's Communication / Plan
Recommendations
He continues to improve both subjectively and objectively
Pain control
Mucinex
Pulmonary toilet
Aspiration precautions; elevate HOB >30-45�
Goal BG 110�140; now off insulin gtt
Monitor for fevers and/or development of UTI symptoms in which case antibiotic should be started with ceftriaxone and treat for 6-7 days; follow up urine Cx
Patient is being downgraded to CVICU�telemetry status � no additional recommendations at this time. Data Processor/Pulmonary service will now sign off. Please reconsult if there are any additional questions/concerns, or if patient's respiratory status
deteriorates.
Assessment
-
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
suspected sleep apnea, aortic atherosclerosis, dyslipidemia, and prediabetes who presents for heart catheterization. Left and right heart catheterization performed 01/21/2025 showed postcapillary pulm hypertension with an elevated wedge of 40, LVEDP
35, CO 5.6, CI 2.2, PVR 1.4 and SVR 13.9 Wood units. LHC showed multivessel CAD involving proximal LAD, large diagonal branch, proximal circumflex, and total occlusion of the RCA which is collateralized in a right to right and [id number]
fashion. CT surgery consulted. Patient underwent a CABG x 4 on 01/26/2025 with Impella inserted and postoperatively was transferred to the CVICU with truck safety inspector services consulted for additional management/recommendations.
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
Impression:
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
#Abnormal urinalysis with +3 leukocyte esterase, +16�20 urine WBC suspicious for UTI
#Hyperglycemia
#Hypokalemia - resolved
#Hypocalcemia
#Lactic acidosis - resolved
#Chronic HFrEF with RV enlargement (per TTE from 01/12/2025)
#Post�capillary pulmonary hypertension (moderate severity with mPAP 52mmHg with PCWP: 40, TP and CO/CI: 5.6, 2.2 and PVR: 1.4 RUIZ via RHC on 01/21/2025)
Plan:
Patient successfully extubated on 01/26/2025 to nasal cannula, and has been doing well now on room air
Previously on morning of 01/28, Impella was removed and he developed significant shortness of breath, possibly from lying flat now without the Impella support in addition to blood products being transfused makes acute pulmonary edema a very likely
scenario that cause his symptoms
Remains on diuresis, currently with Bumex 1 mg IV BID; trend UOP, strict I/O and sCr
Milrinone drip and Levophed both off now
Continue with Entresto, holding for hypotension
Continue strict I/O and trend UOP
Would use BiPAP prn
Maintain SpO2 >90-94% using oxygen as needed
prn nebulized bronchodilators - not currently bronchospastic
Encourage incentive spirometer use q1hr while awake
Continue Mucinex (started 01/27) for pulmonary toilet purposes as he has thick secretions with difficulty expectorating
May need to start nebulized hypertonic saline 3% +/- vest therapy with nebulized bronchodilators if he continues to have difficulty expectorating
Pressors/antihypertensive/inotropes/diuretics will be provided as needed
Maintain MAP>65
Replete electrolytes with K>4, Mg>2
Continue to monitor off antibiotics
Trend WBC and monitor for fevers
Patient's urinalysis from 01/26/2025 did show +3 leukocyte esterase with 16�20 urine WBC - urine culture showing NGTD
If he spikes a fever or if he develops urinary symptoms, then would treat him for UTI for 6-7 days
Monitor chest tube output (bilateral pleural chest tubes + mediastinal chest tubes x 2)
Monitor hemoglobin
Monitor platelet count and coags
Transfuse blood products as needed to maintain Hb>7g/dL, plt>50k (given post-operative status)
CT surgery managing chest tubes
Monitor blood sugar to maintain euglycemia with goal BG 110-140
Insulin drip off since 01/27; recommend to use ISS to keep BG at goal as above
Aspiration precautions
DVT prophylaxis
Early nutrition
Early mobilization
Patient is being downgraded to CVICU�telemetry status � no additional recommendations at this time. Data Processor/Pulmonary service will now sign off. Thank you for allowing us to be involved in the care of this patient. Please reconsult if there
are any additional questions/concerns, or if patient's respiratory status deteriorates.
Total time spent today was 56 minutes for this encounter. Time includes reviewing laboratory test/imaging results, reviewing pertinent medical records, obtaining and reviewing medical history, performing an appropriate exam, ordering medications,
tests and procedures. Time also includes documentation of this encounter, coordinating patient care and communicating with other healthcare professionals. Total time does not include separately billed tests performed on this date of service.
Subjective Dataa
Subjective Data
Date of Service:
Date of Service: January 30, 2025
Chief Complaint: Data Processor Follow Up
Subjective:
Patient was seen and evaluated today at bedside. He feels much better today overall. Heart rate 75. Has some phlegm that he is coughing up but he says this is common for him. Currently denies ABRAMS, nausea, vomiting, fevers or chills.
Review of Systems
General: Other (Negative unless mentioned above)
Objective Data
Data Reviewed
Vital Signs / I&O / Oxygen:
Vital Signs
Temp Pulse Resp BP Pulse Ox
98.2 F 76 24 115/54 97
01/30/25 10:00 01/30/25 10:00 01/30/25 10:00 01/30/25 09:36 01/30/25 07:00
Intake and Output
01/29/25 01/30/25 01/31/25
06:59 06:59 06:59
Intake Total 2370.7 / 2420.0 1509.1 / 1529.1 370 / 370
Output Total 3435 / 3635 1925 / 1965 170 / 170
Balance -1064.3 / -1215.0 -415.9 / -435.9 200 / 200
SaO2 [CPAP] 98
SaO2 [SIMV] 98
SaO2 97
Nasal Cannula flow liters per 4
minute
Physical Exam
General: Respiratory Distress (negative), Comfortable, Chills (negative) and Sweats (negative)
HEENT: Normocephalic and Anicteric
Cardiovascular: S1-S2, Rub (Present) and Peripheral Edema (negative)
Respiratory: Wheeze (negative), Crackles (Bilateral), Rhonchi (negative), Accessory Resp Muscle Use (mild during exertion), Stridor (negative) and Chest Tube (bilateral pleural chest tubes + mediastinal chest tubes x 2)
GI: Soft, Distended (Abdominal obesity), Non Tender and Normal Bowel Sounds
Neurology: AO x 3 and Tremors (negative)
Skin: Warm, Dry, Jaundice (negative) and Rash (negative)
Labs/Micro/Reports
Lab Data
01/30/25 04:28
01/30/25 04:28
Laboratory Results
01/30/25
04:28
PT 15.5 H
INR 1.20
Microbiology
01/26/25 07:10 Urine Urine Culture - Final
NO GROWTH
--- NOTE | 2025-01-30 09:00 | PTCARENOTE ---
Recieved PT from nightshift rn; AAOx3 w/o complaints of pain; SR w 1st degree BBB on monitor VSS; RA dyspneic on exertion CTx4 with minimal drainage; GI ambulated to bathroom w/ assistance passing gas; palmer in place, palmer care completed
draining clear yellow urine; all surgical sights CDI; RIJC and PIV WNL; see worklist for detailed assessment
--- NOTE | 2025-01-30 09:30 | PTCARENOTE ---
CT x4 removed; w/o complications; CT sights cleaned & new dressing applied to CT wounds; PT ambulating in room with assistance; no complaints of pain; no s/s of complications; RA 98% IS 1500; see worklist for detailed assessment
[2025-01-30] MEDS: TYLENOL 1000 MG PO (09:34)
[2025-01-30] MEDS: NEURONTIN 100 MG PO (09:34)
[2025-01-30] MEDS: KCL 20 MEQ PO ×2 (09:35→20:14)
[2025-01-30] MEDS: MAGNESIUM OXIDE 500 MG PO ×2 (09:35→20:13)
[2025-01-30] MEDS: SENOKOT-S 1 TABLET PO (09:35)
[2025-01-30] MEDS: LOW STRENGTH ASPIRIN 81 MG PO (09:35)
[2025-01-30] MEDS: PACERONE 200 MG PO ×2 (09:35→17:32)
[2025-01-30] MEDS: PLAVIX 75 MG PO (09:35)
[2025-01-30] MEDS: PROTONIX 40 MG PO (09:36)
[2025-01-30] MEDS: ENTRESTO 24 MG/26 MG 1 TAB PO ×2 (09:36→20:13)
[2025-01-30] MEDS: MUCINEX 1200 MG PO ×2 (09:36→20:14)
[2025-01-30] MEDS: BACTROBAN 2% OINTMENT 1 APPLIC NASAL (09:37)
[2025-01-30] MEDS: BUMEX 1 MG IV ×2 (09:37→17:33)
--- NOTE | 2025-01-30 12:30 | PTCARENOTE ---
Johnathan removed from RIJC; no s/s of any complications; RIJC sight cleaned and redressed using sterile technique & sterile dressing change kit; no change from previous assessment; see worklist for detailed assessment
[2025-01-30] MEDS: TYLENOL PO ×3 (14:56→21:39)
--- NOTE | 2025-01-30 17:00 | PTCARENOTE ---
no change from previous assessment; see worklist for detailed assessment
[2025-01-30] MEDS: LIPITOR 80 MG PO (17:32)
[2025-01-30] MEDS: NEURONTIN PO ×3 (17:32→21:40)
[2025-01-30] MEDS: NSS 500 IV (17:35)
[2025-01-30] MEDS: SENOKOT-S PO (20:14)
[2025-01-30] MEDS: COREG 3.125 MG PO (20:14)
--- NOTE | 2025-01-30 20:15 | PTCARENOTE ---
Patient received from RN @1900. Patient lying in bed comfortably w/ call villafuerte in reach. AOx3 NSR w/ first degree and prolonged QT. BP 136/66 HR 78 heart sounds audible. Radial and pedal pulses present. +1 ankle and hand edema noted. V-wires
insulated. Lungs diminished in bases. IS 1000. Productive cough noted. Loose BM noted. Serna draining clear yellow urine. RIJ cordis patent and intact. Left PIV patent and intact. Sternal Aquacel dry and intact. Upper right neck dressing
dry and intact. CT dressing dry and intact. 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
[2025-01-30] MEDS: ANESTHETIC LOZENGE 1 LOZENGE PO (21:37)
[2025-01-30] MEDS: PACERONE PO (21:42)
--- NOTE | 2025-01-30 23:27 | PTCARENOTE ---
Patient reassessed. NSR w/ first degree and prolonged QT. BP 108/66 HR 70 POX 97% RA. Washed w/ CHG wipes. Gown nd leads changed.
[2025-01-31] VITALS (26 sets, daily range): BP systolic 91–136; BP diastolic 51–74; PULSE 65–82; O2SAT 96–98; BMI 38.1
--- NOTE | 2025-01-31 00:28 | PTCARENOTE ---
Patient Serna draining ~20mL/hr for 2 hrs. NISH Betancourt notified.
[2025-01-31] MEDS: LR 250 ML IV (01:49)
--- NOTE | 2025-01-31 01:57 | PTCARENOTE ---
250 LR given per NISH Betancourt due to limited urine production see Worklist for details.
--- NOTE | 2025-01-31 02:30 | W.PN.CT ---
Today's Communication / Plan
-
Diminished urine output overnight = concern overnight over diuresis; 1 mg of BUMEX BID; gave 250 IV bolus of LR�
Weaned off milrinone on 01/30�
Considered DC cordis and pacer wires�
Current meds: ASA, Plavix, Lipitor, Amio, Protonix, Coreg�
Consider DC cordis and VVI wires�
Assessment / Plan
-
Assessment:
-s/p CABG x4 (CLEMONS- LAD, SVG-OM, SVG-Dx, SVG-RPDA); encompass LEXI FLORES #50 clip, direct Impella 5.5 placement on 01/26/[address] Castillo, pod #5
Impella removed on 01/28/25
-Severe 3v CAD including 50% tubular LM
-BARRETT
-Ischemic CM(EF 20-25%) per TTE 01/12/25
-HFrEF
-PAFib S/p PVI Jul 2024, on Eliquis preop
-HTN
-HLD
-Class 2 obesity (BMI 36.7)
-Bradycardia preop
-Mild TR
-Trace MR
-LE edema
-Acute postop blood loss anemia - recieved 2 units RBC's for impella removal
-Acute postop thrombocytopenia/coagulopathy - s/p 2 unit platelet
-Acute postop hypovolemia with subsequent hypervolemia
-Acute postop atelectasis
Subjective
Procedure
-s/p CABG x4 (CLEMONS- LAD, SVG-OM, SVG-Dx, SVG-RPDA); encompass LEXI FLORES #50 clip, direct Impella 5.5 placement on 01/26/[address] Castillo
-s/p Impella removal on 01/28/[address] Castillo
-
Date of Service: January 31, 2025
Objective Data
-
PT 15.5 Sec (11.4-14.6) H 01/30/25 04:28
INR 1.20 01/30/25 04:28
APTT 34.2 Sec (23.4-35.0) 01/28/25 05:02
Vital Signs
Vital Signs
Temp Pulse Resp BP Pulse Ox
98 F 65 17 101/61 96
01/31/25 00:00 01/31/25 02:15 01/31/25 01:58 01/31/25 02:00 01/31/25 02:15
CT Intake/Output/Weight
01/30/25 01/30/25 01/31/25
06:59 18:59 06:59
Intake Total 568.8 / 1529.1 410 / 1220 810 / 1220
Output Total 725 / 1965 1510 / 2145 635 / 2145
Balance -156.2 / -435.9 -1100 / -925 175 / -925
SaO2: 96
[2025-01-31 03:48] LABS: Hematocrit 25.2 % (39.0-52.0); Hemoglobin 8.5 g/dL (13.0-18.0); Mean Corp Hgb Conc. 33.7 g/dL (33.0-37.0); Mean Corpuscular Hgb 31.4 pg (27.0-31.0); Platelet Count 123 10^3/uL (130-400); Red Blood Cell Count 2.71 10^6/uL (4.70-6.10); Red Cell Dist. Width 13.8 % (11.5-14.5); White Blood Cell Count 10.5 10^3/uL (4.8-10.8)
[2025-01-31 03:52] LABS: INR 1.23; PT 15.7 Sec (11.4-14.6)
[2025-01-31 04:12] LABS: ALT (SGPT) 18 U/L (0-50); AST (SGOT) 24 U/L (17-59); Albumin 2.9 g/dl (3.5-5.0); Alkaline Phosphatase 46 U/L (38-126); Blood Urea Nitrogen 28 mg/dl (9-20); Calcium 7.4 mg/dl (8.4-10.2); Carbon Dioxide 29 mmol/L (22-30); Chloride 107 mmol/L (98-107); Estimated Creatinine Clearance 123 ml/min; Glucose 105 mg/dl (70-99); Magnesium 2.2 mg/dl (1.6-2.3); Potassium 4.3 mmol/L (3.5-5.1); Sodium 137 mmol/L (135-145); Total Bilirubin 1.3 mg/dl (0.2-1.3); eGFR > 60.00
--- NOTE | 2025-01-31 04:13 | PTCARENOTE ---
Patient reassessed. NSR w/ first degree and prolonged QT BP 106/57 HR 72 POX 99% RA. Labs drawn. Bladder scan per NISH Betancourt. Bladder scan 20mL.
[2025-01-31] MEDS: TYLENOL PO ×2 (06:32→14:10)
[2025-01-31] MEDS: NEURONTIN 100 MG PO ×3 (08:42→23:02)
[2025-01-31] MEDS: KCL 20 MEQ PO ×2 (08:42→19:50)
[2025-01-31] MEDS: ENTRESTO 24 MG/26 MG 1 TAB PO ×2 (08:42→19:50)
[2025-01-31] MEDS: MAGNESIUM OXIDE 500 MG PO ×2 (08:42→19:50)
[2025-01-31] MEDS: PACERONE 200 MG PO ×3 (08:42→23:02)
[2025-01-31] MEDS: PLAVIX 75 MG PO (08:42)
[2025-01-31] MEDS: MUCINEX 1200 MG PO (08:42)
[2025-01-31] MEDS: PROTONIX 40 MG PO (08:42)
[2025-01-31] MEDS: LOW STRENGTH ASPIRIN 81 MG PO (08:43)
[2025-01-31] MEDS: BUMEX 1 MG IV ×2 (08:43→15:56)
[2025-01-31] MEDS: SENOKOT-S 1 TABLET PO (08:43)
--- NOTE | 2025-01-31 08:45 | PTCARENOTE ---
Assumed care of patient. Walking rounds completed with previous RN. Pt assessed while he was sitting in the chair. Pt alert and oriented x4. Pt denies pain, shortness of breath, and nausea. MOORE with equal strength throughout. 1 assist to ambulate in
the room to the bathroom. SR with 1st degree AVB and BBB with rates in the 70s. BP 118/71. Heart tones audible. Bilateral radial and DP pulses palpable. +2 bilateral lower extremity edema. Epicardial v-wire insulated. POX 96%. Diminished in the b/l
bases. IS encouraged-pt refused at this time. Occasional productive moist cough with ledesma sputum as per patient. Abdomen soft, round, nontender. +BM. Serna catheter in draining adequate amounts of markos urine.Sternal incision covered with
Antibacterial dressing, CDI. Old chest tube sites covered, CDI. 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 B/l SVG harvest sites approximated, WOOD, Ecchymotic L>R. Right IJ cordis intact infusing NSS KVO. Left ACT PIV intact. See MAR for medication
administration. See worklist for complete nursing assessment. Plan of care reviewed and patient not in agreement. 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 Educated patient on importance of safe
transition home and importance of exercise in hospital, including ambulating in the halls. Pt needs continued education on sternal precautions as patient refuses teaching.
[2025-01-31] MEDS: NSS IV (09:56)
[2025-01-31] MEDS: COREG 3.125 MG PO ×2 (10:10→19:50)
--- NOTE | 2025-01-31 10:43 | W.PN.CARDCBS ---
Addendum entered and electronically signed by Bonny Fleming MD 01/31/25 11:17:
I saw and examined the patient.
The Boat Carpenter's note was reviewed and I agree with the note.
Comment: Exam stable. No lower extremity edema. Distant heart sounds but regular. Decreased breath sounds at the bases.
He was diagnosed with multivessel coronary disease in the setting of heart failure with reduced ejection fraction. He underwent CABG with Impella placement. He has done well and Impella has been removed. He diuresed quite a bit overnight and some
fluid was given back. He is sitting in the chair and feels well.
-Continue usual postop care
-Reassess echocardiogram now off of Impella for baseline
-Resume guideline directed medical therapy as able.
Original Note:
Today's Communication / Plan
-
Recheck echo now that Impella out
GDMT and diuresis
Impression / Plan
-
Electronic Assembly: Dr. Zayas
Primary EP: Dr. Troy Fleming
Impression:
Admitted following outpatient cardiac cath due to MV CAD and acute HFrEF 01/21/2025
Acute on chronic HFrEF
ICM EF 20 to 25% by echo 01/12/2025
MVCAD by cath 01/21/25
CAD s/p CABG with CLEMONS to LAD, SVG to D1, SVG to RPDA, SVG to OM, MAZE, BRITTA clip, placement of Impella 5.5 01/26/25
Paroxysmal atrial fibrillation
s/p PVI Jul 2024
Chronic Eliquis OAC
HTN
Bradycardia
HTN
Cath 01/21/25: PCWP 40, Cardiac Index: 2.2 L/ min / m-2, LEFT MAIN: Tubular 50% stenosis, LAD: The LAD arises normally from the left main and has a complex proximal 95% stenosis involving the origin of a large first diagonal branch. The mid to
distal LAD has minor irregularities. CIRCUMFLEX: The circumflex is a large-caliber nondominant vessel with a 95% proximal stenosis. The circumflex supplies a single large bifurcating obtuse marginal branch. RCA: The right coronary artery is
occluded proximally with bridging collaterals and right to right collaterals as well as [id number] collaterals from circumflex and LAD
Echo January 2024: Outside facility, EF 45%, RALEIGH 6.1cm, mild to mod TR, RV dilated
Echo 01/12/25: Dilated cardiomyopathy with severely reduced left ventricular systolic function , EF 20-25%, Enlarged right ventricle with overall preserved RV systolic functio, Biatrial dilatation, Mild tricuspid regurgitation, PASP 68 mmHg, AFib
with slow response.
ECHO 01/27/25: Limited study, Definity used, Impella initially at P4 and additional images obtained with support reduced to P2. LV dilated and EF 30%, global hypokinesis with akinesis and anteroseptum, no dramatic change was noted with lowering of
Impella support. Moderate LA dilatation, structurally normal MV, AV, TV
Plan:
-Patient came to [facility] as an elective outpatient cardiac cath due to worsening EF and concern for CAD patient is. Patient found to have MV CAD by cardiac cath 01/21/2025 and was also in acute HF so he was admitted for diuresis and then had CABG
01/26/2025. Patient was also on milrinone gtt from 01/28/2025 until 01/29/2025
-Patient was diuresed following cardiac cath on 01/21/2025, his admission weight was 285 lbs and weight dropped as low as 271 lbs on day of surgery 01/26/2025. Postop patient's weight as high as 291 lbs on 01/30/2025, but patient diuresed with Bumex 1
mg IV BID and weight down to 284 lbs on 01/31/2025.
-CT surgery note reviewed for 01/31/2025 and patient with decreased urine output overnight and was given a 250 mL IVF bolus. He continues with an active order for Bumex 1 mg IV BID
-EF was 20 to 25% on 01/12/2025 and by postop echo on 01/27/2025 the EF was improved a bit to 30%, Impella was in place at time of echo. Will check repeat echo now that Impella has been removed and to reassess EF. Echo ordered by me, 01/31/2025
-Patient was not taking BB prior to admission due to bradycardia and is new to Coreg 3.125 mg BID
-Outpatient dose of Entresto 24/26 mg BID
-Outpatient dose of spironolactone 25 mg daily is on hold postop
-Patient was not taking SGLT2 inhibitor prior to admission, could consider adding. Renal function stable. Will ask CM to check cost
Patient with known paroxysmal A-fib. Patient had maze at time of CABG on 01/18/2025. Patient has also been loaded with amiodarone 200 mg TID postop and has received a 2.4 g load as of 01/31/2025
-Patient had BRITTA clipping, but ANNA could not be passed, no ANNA imaging post BRITTA clipping so will need to plan to eventually resume apixaban until adequacy of BRITTA clipping can be assessed. Reattempt ANNA at some point or consider Watchman protocol CTA
which should be able to assess adequacy of the Atriclip
HPI: This is a 79-year-old gentleman with a past medical history notable for hypertension, atrial fibrillation, and dilated cardiomyopathy with recent worsening in LVEF. He underwent pulmonary vein isolation in July 2024 and experienced a
recent worsening in symptoms of exertional dyspnea as well as development of lower extremity edema. A recent echocardiogram was notable for worsening in LVEF and he is now referred for coronary angiography. He denies any chest discomfort but does
report a significant change in functional capacity with dyspnea occurring at very low levels of exertion.
Progress Note - Electronic Assembly
Subjective
Date of Service: January 31, 2025
He thinks his LE edema is much better
Objective
Labs:
01/31/25 03:07
01/31/25 03:07
Labs
Hgb 8.5 g/dL (13.0-18.0) L 01/31/25 03:07
Hct 25.2 % (39.0-52.0) L 01/31/25 03:07
Plt Count 123 10^3/uL (130-400) L D 01/31/25 03:07
PT 15.7 Sec (11.4-14.6) H 01/31/25 03:07
INR 1.23 01/31/25 03:07
APTT 34.2 Sec (23.4-35.0) 01/28/25 05:02
Sodium 137 mmol/L (135-145) 01/31/25 03:07
Potassium 4.3 mmol/L (3.5-5.1) 01/31/25 03:07
BUN 28 mg/dl (9-20) H 01/31/25 03:07
Creatinine 0.7 mg/dL (0.7-1.3) 01/31/25 03:07
Glucose 105 mg/dl (70-99) H 01/31/25 03:07
Vital Signs and I&O:
Vital Signs
Temp Pulse Resp BP Pulse Ox
97.9 F 73 18 116/66 96
01/31/25 08:00 01/31/25 10:09 01/31/25 08:00 01/31/25 10:09 01/31/25 08:45
Vital Signs
Temp Pulse Resp BP Pulse Ox
97.9 F 73 18 116/66 96
01/31/25 08:00 01/31/25 10:09 01/31/25 08:00 01/31/25 10:09 01/31/25 08:45
Intake & Output
01/29/25 01/30/25 01/31/25 02/01/25
06:59 06:59 06:59 06:59
Intake Total 2370.7 / 2420.0 1509.1 / 1529.1 1260 / 1270 280 / 280
Output Total 3435 / 3635 1925 / 1965 2330 / 2330 575 / 575
Balance -1064.3 / -1215.0 -415.9 / -435.9 -1070 / -1060 -295 / -295
Physical Exam
Physical Exam
GEN: NAD. AAOx3
HEENT: EOMI
LUNGS: RA. No audible wheeze
CV: SR on tele
EXT: No edema B/L LE
NEURO: Gross non-focal
SKIN: No rash
--- NOTE | 2025-01-31 11:10 | CM ---
Chart reviewed. Patient OOB sitting in the chair, independent of ADLS, daughter is here from [place] staying with her father, 3 STH, bedroom on 2nd floor, 2 MARILEE, 0 DME. Patient OOB ambulating in the halls. Patient's daughter expressed concern
on patient being able to do the stairs. PT/OT evaluation placed. Plan is for the patient to return home with CT Transitional RN. CM to follow
[2025-01-31] MEDS: ANESTHETIC LOZENGE 1 LOZENGE PO (12:18)
--- NOTE | 2025-01-31 12:54 | PTCARENOTE ---
Pt reassessed. SR with 1st degree and BBB on tele with rates in the 60s-70s. BP 94/53, denies dizziness & lightheadedness. Denies pain. POX 98% on RA. Surgical sites stable. Remains due to void post palmer removal, denies urge. Sitting up in chair,
awaiting lunch.
--- NOTE | 2025-01-31 14:00 | PTCARENOTE ---
Pt assisted to the toilet to void, pt refused to use urinal. Assisted back to bed for echo. completed. Bladder scanned for 0mL. Assisted to chair for lunch. Family at bedside. educated on importance of measuring output.
--- NOTE | 2025-01-31 16:12 | W.PN.UPDATE ---
Update Note
Progress Note Update
Epicardial bipolar v-wire clipped to skin level.
--- NOTE | 2025-01-31 16:29 | PTCARENOTE ---
Pt worked with PT/OT. Assisted back to bed. Epicardial v-wire cut by CT TICKER MAINTAINER. Right IJ cordis d/c per orders. Hemostasis achieved. Surgical sites unchanged. NSR with 1st degree AVB and BBB with rates in the 70s. BP 100/53. POX 98% on RA. PIV intact.
No other acute changes.
[2025-01-31] MEDS: LIPITOR 80 MG PO (18:09)
[2025-01-31] MEDS: SENOKOT-S PO (19:51)
--- NOTE | 2025-01-31 21:00 | PTCARENOTE ---
Assumed care of pt from dayshift RN. Walking rounds completed. Pt is AAOx3. MOORE. SR w/ 1st degree AVB and BBB on the tele monitor. HR 70s. BP stable. Palpable pulses throughout. Trace LE edema. Pt is on RA. POX 97%. Lung sounds diminished in the
base. Occasional cough. Deep breathing and IS encouraged. Abdomen round. +BS. Pt voiding w/o issue. +BM. Sternal Aquacel C/D/I. B/L groin punctures WOOD, ecchymotic. Small blister noted on left upper thigh. B/L SVG harvest sites approximated, WOOD,
and Ecchymotic. Left leg more ecchymotic. Left AC 18 intact and flushed. Pt is assist x1. No c/o pain at this time. See worklist for full nursing assessment and interventions. Pt assisted out of the chair and into bed. Call villafuerte within reach.
[2025-01-31] MEDS: TYLENOL 1000 MG PO (23:02)
--- NOTE | 2025-02-01 | PTCARENOTE ---
Assessment unchanged. SR w/ !st degree AVB and BBB on the tele monitor. VSS. Pt resting in bed at this time. Call villafuerte within reach.
[2025-02-01 03:02] VITALS: BP 94/56
--- NOTE | 2025-02-01 03:16 | PTCARENOTE ---
No change in assessment. SR w/ 1st degree AVB and BBB on the tele monitor. HR 60s. BP stable. Pt is 97% on RA. All surgical sites stable. Labs drawn and sent. No c/o pain at this time. Call villafuerte within reach.
[2025-02-01 03:21] LABS: Hematocrit 25.2 % (39.0-52.0); Hemoglobin 8.6 g/dL (13.0-18.0); Mean Corp Hgb Conc. 34.1 g/dL (33.0-37.0); Mean Corpuscular Hgb 32.1 pg (27.0-31.0); Mean Platelet Volume 9.3 fL (7.4-10.4); Platelet Count 141 10^3/uL (130-400); Red Blood Cell Count 2.68 10^6/uL (4.70-6.10); Red Cell Dist. Width 14.3 % (11.5-14.5); White Blood Cell Count 9.2 10^3/uL (4.8-10.8)
[2025-02-01 03:27] LABS: Ionized Calcium 1.07 mMOL/L (1.15-1.33)
[2025-02-01 03:33] LABS: PT 15.5 Sec (11.4-14.6)
[2025-02-01 03:49] LABS: ALT (SGPT) 23 U/L (0-50); AST (SGOT) 27 U/L (17-59); Alkaline Phosphatase 51 U/L (38-126); Blood Urea Nitrogen 23 mg/dl (9-20); Calcium 7.6 mg/dl (8.4-10.2); Carbon Dioxide 28 mmol/L (22-30); Chloride 107 mmol/L (98-107); Estimated Creatinine Clearance 106 ml/min; Glucose 118 mg/dl (70-99); Magnesium 2.3 mg/dl (1.6-2.3); Potassium 4.3 mmol/L (3.5-5.1); Sodium 137 mmol/L (135-145); Total Bilirubin 1.3 mg/dl (0.2-1.3); Total Protein 5.2 g/dl (6.3-8.2); eGFR > 60.00
[2025-02-01 04:41] VITALS: BMI 37.6
[2025-02-01 04:56] VITALS: BP 136/83
--- NOTE | 2025-02-01 05:55 | W.PN.CT ---
Today's Communication / Plan
-
Plan:
-No major issues overnight. Hemodynamically and neurologically intact
-Off all drips
-Cont. current meds (ASA, Plavix, Entresto, Coreg, Lipitor)
-Continue diuresis
-Repeat echo yesterday, 01/31 showed LVEF of 30%
-Encourage use of IS
-OOB into chair/Ambulate
-PT/OT okay with d/c home
-OOB into chair/Ambulate
-Home today
Diminished urine output overnight = concern overnight over diuresis; 1 mg of BUMEX BID; gave 250 IV bolus of LR�
Weaned off milrinone on 01/30�
Considered DC cordis and pacer wires�
Current meds: ASA, Plavix, Lipitor, Amio, Protonix, Coreg�
Consider DC cordis and VVI wires�
Assessment / Plan
-
Assessment:
-s/p CABG x4 (CLEMONS- LAD, SVG-OM, SVG-Dx, SVG-RPDA); encompass MAZE, ELAA #50 clip, direct Impella 5.5 placement on 01/26/[address] Castillo, pod #6
Impella removed on 01/28/25
-Severe 3v CAD including 50% tubular LM
-BARRETT
-Ischemic CM(EF 20-25%) per TTE 01/12/25
-HFrEF
-PAFib S/p PVI Jul 2024, on Eliquis preop
-HTN
-HLD
-Class 2 obesity (BMI 36.7)
-Bradycardia preop
-Mild TR
-Trace MR
-LE edema
-Acute postop blood loss anemia - recieved 2 units RBC's for impella removal
-Acute postop thrombocytopenia/coagulopathy - s/p 2 unit platelet
-Acute postop hypovolemia with subsequent hypervolemia
-Acute postop atelectasis
Discussed patient care with: Cardiology, Nursing, Respiratory Therapy, Pharmacy and Care Team
Subjective
Procedure
-s/p CABG x4 (CLEMONS- LAD, SVG-OM, SVG-Dx, SVG-RPDA); LEXI Arceo #50 clip, direct Impella 5.5 placement on 01/26/[address] Castillo
-s/p Impella removal on 01/28/[address] Castillo
-
Date of Service: February 01, 2025
Pt c/o mild incisional pain, otherwise feels well
Objective Data
-
Lab Results
02/01/25 03:12
02/01/25 03:12
PT 15.5 Sec (11.4-14.6) H 02/01/25 03:12
INR 1.20 02/01/25 03:12
APTT 34.2 Sec (23.4-35.0) 01/28/25 05:02
Vital Signs
Vital Signs
Temp Pulse Resp BP Pulse Ox
98.1 F 74 18 136/83 96
02/01/25 03:02 02/01/25 05:00 02/01/25 03:02 02/01/25 04:56 02/01/25 03:02
CT Intake/Output/Weight
01/31/25 01/31/25 02/01/25
06:59 18:59 06:59
Intake Total 850 / 1270 560 / 560
Output Total 820 / 2330 1125 / 1125
Balance 30 / -1060 -565 / -565
SaO2: 96 (RA )
Physical Exam
-
General: Awake, Oriented and AOx3
Cardiovascular: Regular rate & rhythm, No Murmurs, No Rub and No Gallop
Respiratory: Decreased Breath Sounds (at bases, otherwise clear)
Sternum: Stable
Incision: Clean, Dry, Intact and Dressing Intact
Extremities: Edema +1
Data Reviewed
-
Lab Results: Results Reviewed
Medications: Active Meds Reviewed
Chest X-Ray: Report Reviewed and Image Reviewed
ECG: Report Reviewed and Image Reviewed
[2025-02-01] MEDS: TYLENOL PO (06:01)
[2025-02-01] MEDS: CALCIUM GLUCONATE 130 MG IV (06:19)
[2025-02-01 07:39] VITALS: BP 124/68
[2025-02-01] MEDS: LOW STRENGTH ASPIRIN 81 MG PO (07:43)
[2025-02-01] MEDS: NEURONTIN 100 MG PO (07:43)
[2025-02-01] MEDS: PLAVIX 75 MG PO (07:43)
[2025-02-01] MEDS: SENOKOT-S PO ×2 (07:44→07:51)
[2025-02-01] MEDS: PROTONIX 40 MG PO (07:44)
[2025-02-01] MEDS: BUMEX 1 MG IV (07:44)
[2025-02-01] MEDS: PACERONE 200 MG PO (07:44)
[2025-02-01] MEDS: MAGNESIUM OXIDE 500 MG PO (07:44)
[2025-02-01] MEDS: KCL 20 MEQ PO (07:44)
[2025-02-01] MEDS: COREG 3.125 MG PO (07:44)
[2025-02-01] MEDS: ENTRESTO 24 MG/26 MG 1 TAB PO (07:44)
[2025-02-01] MEDS: ANESTHETIC LOZENGE 1 LOZENGE PO (07:45)
--- NOTE | 2025-02-01 08:30 | PTCARENOTE ---
Assumed care of patient at 0700. Pt is awake, alert, and oriented. No complaints of pain. Pt remains SR with first degree AV block and BBB, HR 70's. BP 124/68 MAP 82. Pulse oximetry 98% on room air. Pt tolerating PO diet. Voiding without difficulty.
Midsternal incision post-surgical dressing intact. Right and left leg incisions approximated and WOOD, ecchymotic. Right groin puncture intact. Pt currently OOB in chair resting comfortably with call villafuerte within reach.
--- NOTE | 2025-02-01 09:21 | W.PN.CARDCBS ---
Addendum entered and electronically signed by Gregorio Lowe DO 02/01/25 14:54:
I saw and examined the patient.
The Gore Cutter's note was reviewed and I agree with the note.
Comment:
Plan:
Continue coreg, entresto. spironoactone
CM to assess cost of farxiga
Plan is for ASA, Eliquis and amio on discharge
Consider daily lasix at d/c
Outpt echo and cardiac follow up
Discussed with CT surgery, brother at bedside and daughter via phone.
Original Note:
Today's Communication / Plan
-
continue coreg, entresto. spironoactone as OP as able
CM to assess cost of farxiga
plan for asa, eliquis, amio upon DC
would recommend daily lasix upon DC
OP cardiac follow up. will need 90 day revasc echo
Impression / Plan
-
Veterans Service Officer: Dr. Zayas
Primary EP: Dr. Troy Fleming
Impression:
Admitted following outpatient cardiac cath due to MV CAD and acute HFrEF 01/21/2025
Acute on chronic HFrEF
ICM EF 20 to 25% by echo 01/12/2025
MVCAD by cath 01/21/25
CAD s/p CABG with CLEMONS to LAD, SVG to D1, SVG to RPDA, SVG to OM, MAZE, BRITTA clip, placement of Impella 5.5 01/26/25
Paroxysmal atrial fibrillation
s/p PVI Jul 2024
Chronic Eliquis OAC
HTN
Bradycardia
HTN
Cath 01/21/25: PCWP 40, Cardiac Index: 2.2 L/ min / m-2, LEFT MAIN: Tubular 50% stenosis, LAD: The LAD arises normally from the left main and has a complex proximal 95% stenosis involving the origin of a large first diagonal branch. The mid to
distal LAD has minor irregularities. CIRCUMFLEX: The circumflex is a large-caliber nondominant vessel with a 95% proximal stenosis. The circumflex supplies a single large bifurcating obtuse marginal branch. RCA: The right coronary artery is
occluded proximally with bridging collaterals and right to right collaterals as well as [id number] collaterals from circumflex and LAD
Echo January 2024: Outside facility, EF 45%, RALEIGH 6.1cm, mild to mod TR, RV dilated
Echo 01/12/25: Dilated cardiomyopathy with severely reduced left ventricular systolic function , EF 20-25%, Enlarged right ventricle with overall preserved RV systolic functio, Biatrial dilatation, Mild tricuspid regurgitation, PASP 68 mmHg, AFib
with slow response.
ECHO 01/27/25: Limited study, Definity used, Impella initially at P4 and additional images obtained with support reduced to P2. LV dilated and EF 30%, global hypokinesis with akinesis and anteroseptum, no dramatic change was noted with lowering of
Impella support. Moderate LA dilatation, structurally normal MV, AV, TV
Plan:
-Patient came to [facility] as an elective outpatient cardiac cath due to worsening EF and concern for CAD patient is. Patient found to have MV CAD by cardiac cath 01/21/2025 and was also in acute HF so he was admitted for diuresis and then had CABG
01/26/2025. Patient was also on milrinone gtt from 01/28/2025 until 01/29/2025
-weight continues to trend down with diuresis, was 271 pounds on DOS 01/26/25, today 281 pounds. would recommend daily diuretic on DC. Cr stable at 0.8
-EF was 20 to 25% on 01/12/2025 and by postop echo on 01/31/25 with EF 30%.
-continue GDMT of ICM as able. coreg 3.125mg BID new this admission (was not on BB prior to admission due to baseline bradycardia). continue entresto. was on spironolactone 25mg daily preop, presently remains on hold, consider restarting as OP
-Patient was not taking SGLT2 inhibitor prior to admission, consider addition. Will ask CM to check cost of farxiga
-Patient with known paroxysmal A-fib. Patient had maze at time of CABG on 01/18/2025. remains in SR with 13 beat run of NSVT overnight. would plan to continue amiodarone 200mg BID upon DC
-Patient had BRITTA clipping, but ANNA could not be passed, no ANNA imaging post BRITTA clipping so plan to resume apixaban in addition to asa until adequacy of BRITTA clipping can be assessed. Reattempt ANNA at some point or consider [employer] protocol CTA
which should be able to assess adequacy of the Atriclip
-OP cardiac follow up arranged. will need 90 day revasc echo
-cardiac rehab
-per CT surg notes, for possible DC today
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
HPI: This is a 79-year-old gentleman with a past medical history notable for hypertension, atrial fibrillation, and dilated cardiomyopathy with recent worsening in LVEF. He underwent pulmonary vein isolation in July 2024 and experienced a
recent worsening in symptoms of exertional dyspnea as well as development of lower extremity edema. A recent echocardiogram was notable for worsening in LVEF and he is now referred for coronary angiography. He denies any chest discomfort but does
report a significant change in functional capacity with dyspnea occurring at very low levels of exertion.
Progress Note - Veterans Service Officer
Subjective
Date of Service: February 01, 2025
no complaints
Objective
Labs:
02/01/25 03:12
02/01/25 03:12
Labs
Hgb 8.6 g/dL (13.0-18.0) L 02/01/25 03:12
Hct 25.2 % (39.0-52.0) L 02/01/25 03:12
Plt Count 141 10^3/uL (130-400) 02/01/25 03:12
PT 15.5 Sec (11.4-14.6) H 02/01/25 03:12
INR 1.20 02/01/25 03:12
APTT 34.2 Sec (23.4-35.0) 01/28/25 05:02
Sodium 137 mmol/L (135-145) 02/01/25 03:12
Potassium 4.3 mmol/L (3.5-5.1) 02/01/25 03:12
BUN 23 mg/dl (9-20) H 02/01/25 03:12
Creatinine 0.8 mg/dL (0.7-1.3) 02/01/25 03:12
Glucose 118 mg/dl (70-99) H 02/01/25 03:12
Vital Signs and I&O:
Vital Signs
Temp Pulse Resp BP Pulse Ox
98.2 F 73 18 124/68 98
02/01/25 07:42 02/01/25 08:00 02/01/25 07:42 02/01/25 07:39 02/01/25 08:30
Vital Signs
Temp Pulse Resp BP Pulse Ox
98.2 F 73 18 124/68 98
02/01/25 07:42 02/01/25 08:00 02/01/25 07:42 02/01/25 07:39 02/01/25 08:30
Intake & Output
01/30/25 01/31/25 02/01/25 02/02/25
07:59 07:59 07:59 07:59
Intake Total 1479.8 / 1479.8 1250 / 1500 550 / 550
Output Total 1765 / 1805 2290 / 2515 1125 / 1125
Balance -285.2 / -325.2 -1040 / -1015 -575 / -575
Physical Exam
Physical Exam
GEN: No distress, awake, alert, oriented x3. sitting in chair
HEENT: supple, anicteric, mmm, eomi
LUNGS: CTA B/L, no wheezes/rales
CV: Reg, S1/S2, no murmur
ABD: soft, BS+, NT/ND
EXT: No cyanosis, clubbing. trace edema of B/L LE
NEURO: Gross non-focal
SKIN: Warm, pink, dry. No rash.
--- NOTE | 2025-02-01 10:52 | CM ---
Pricing on [facility] through the patient's [employer] prescription plan, ID# [id number], is $40 for a 30 day supply. I will place a free 30 day coupon in the patient's red discharge folder.
[2025-02-01] MEDS: ELIQUIS 5 MG PO (10:57)
[2025-02-01] MEDS: FARXIGA 10 MG PO (11:12)
[2025-02-01 11:16] VITALS: BP 97/57
--- NOTE | 2025-02-01 11:46 | W.DCSUMMARY ---
Discharge Summary
Discharge Data
Date of Admission: 01/21/25
Date of Discharge: 02/01/25
-
Pending Results: No
Hospital Course
Primary care physician: None
Outpatient telemetry tech: Bony Fleming
Inpatient consultants: [facility], pulmonary dispatcher service or work, PT/OT, gastroenterology
Procedures:
1. CABG, MAZE, left atrial appendage clip, central Impella 5.5 placement
2. Impella removal (01/28/25)
Primary Diagnosis:
1. triple vessel coronary artery disease
Secondary Diagnoses:
1. Acute cardiogenic shock requiring mechanical circulatory support (Impella 5.5)
2. Ischemic CM (EF 20-25%) per TTE 01/12/25
3. HFrEF
4. PAFib S/p PVI Jul 2024, on Eliquis preop
5. HTN
6. HLD
7. Class 2 obesity (BMI 36.7)
8. Acute postop blood loss anemia
9. Acute postop thrombocytopenia/coagulopathy - s/p 2 unit platelet
10. Acute postop hypovolemia with subsequent hypervolemia
HPI: 79-year-old male with a PMHx of HTN, AF (s/p PVI - 07/2024) on Eliquis, and dilated cardiomyopathy with recent reduction of LVEF (45% to 20-25%) who presented to his outpatient cardiology office with complaints of progressive dyspnea and
worsening B/L LLE. He obtained a TTE (01/12/25) which showed newly reduced LVEF of 20-25% with severely reduced LV systolic dysfunction, dilated RV with preserved RV function, no /AI, trace MR, mild TR with PASP 68 and CVP 8, trace AL and noted to
be in AF with slow ventricular response. He was referred for R/LHC.
Hospital course: Patient was admitted 01/21/25 after R/LHC with Dr. Goins revealed elevated R-sided pressures and multivessel disease. He was admitted to IVU for inpatient diuresis. Eliquis was placed on hold and a Heparin gtt was initiated per
Cardiology. Cardiothoracic Surgery was consulted for evaluation of multivessel disease. Patient was taken to the operating room on 01/26/2025 for CABG x 4 (CLEMONS to LAD, SVG to OM, SVG to diagonal, SVG to RPDA ), encompass MAZE, and left atrial
appendage number 55 mm clip, direct Impella 5.[address] Joseph Castillo. GI was consulted intraoperatively for inability to pass ANNA probe for evaluation was of no esophageal complications. Patient received no intraoperative blood products
and returned to CVICU on epinephrine at 4, Levophed of 6, Precedex, and insulin. Patient was extubated at 1830 the day of surgery. Postoperative day 1, epinephrine was weaned to room on postoperative day #2, hemoglobin was noted to be 7.5 and
patient received 1 PRBC. Impella was removed in the operating room. Patient received an additional platelet and 1 PRBC during procedure. Patient was then diuresed with Bumex. He and transition to milrinone at 0.025. Entresto was initiated on
postoperative day #3. Lipitor home dose of 20 mg was increased to 80 mg daily. Milrinone was discontinued on postoperative day #4 and patient delined. Right IJ and Serna were removed on postop on post-operative day #5. Ventricular epicardial
pacing wires were clipped at skin level. Patient was evaluated by PT and OT and deemed stable for discharge to home. On postoperative day #6, Plavix was transitioned to Eliquis for history of A-fib. Patient did maintain sinus rhythm during
hospital stay. Patient completed steps with physical therapy. Patient showered and Aquacel dressing was removed from the sternotomy site. Incision clean dry and intact. Farxiga was added for goal-directed medical therapy. Spironaldactone will
be resumed as outpatient. Hemoglobin 8.6 and creatinine 0.8 on day of discharge.roxanne with low-dose of greater than 2.5 on P level 4. Patient instructed on importance of obtaining a primary care provider to coordinate future chronic care.
Home medication changes:
Lipitor 20mg increased to 80mg daily s/p CABG
Stop aldactone
Discharge Plan
-
Patient Disposition: Home (Routine Discharge)
Discharge Diagnosis/Procedures: CABG x4, MAZE, left atrial appendage clip, Impella 5.5 support
Condition: Good
Diet: Low Cholesterol and Low Sodium
Activity: No strenuous activity
Driving Restrictions: Not until seen by your Dr
Bathing Restrictions: OK to Shower
Blood Work: BMP and CBC in 1 week
Other Services: Cardiac Rehab
Specialty Instructions: Weigh Daily- Call MD for wt gain/loss 3 lbs overnight/5 lbs in 1 week
Activity Restrictions/Additional Instructions:
Patient to call [facility] to schedule Cardiac Rehab appointment. [phone]
Referrals:
CT Transitional Care Nurse [Outside]
Referral Note: The Cardiothoracic Transitional Care Nurse will call you to set up a visit in 1-2 days.
Alice Hurtado CRNP [Specified Professional Personl, Cardiology] - 03/10/25 2:00 pm
Referral Note:
Ramesh Ramirez DO [Non-Admitting Privileges] - in one to two months
Rick Self DO [Non-Admitting Privileges, Internal Medicine] - in four to six weeks
Kathy Alfred CRNP [Specified Professional Personl, Cardiac Surgery] - 03/01/25 1:45 pm
Prescriptions:
New
acetaminophen 325 mg Tablet
650 mg PO Q4HPRN PRN (Reason: mild pain,headache,temp >101F ) Qty: 0 0RF
aspirin 81 mg Tablet,Chewable
81 mg PO DAILY Qty: 0 0RF
pantoprazole 40 mg Tablet,Delayed Release (Dr/Ec)
40 mg PO DAILY Qty: 30 1RF
cyclobenzaprine 10 mg Tablet
5 mg PO Q8HPRN PRN (Reason: muscle spasm) Qty: 10 0RF
amiodarone 200 mg tablet
200 mg PO DAILY Qty: 30 1RF
atorvastatin 80 mg Tablet
80 mg PO QPM Qty: 30 1RF
carvedilol 3.125 mg Tablet
3.125 mg PO BID Qty: 60 1RF
gabapentin 100 mg Capsule
100 mg PO TID Qty: 30 0RF
oxycodone 5 mg Tablet
5 mg PO Q4HPRN PRN (Reason: severe pain) Qty: 10 0RF
dapagliflozin propanediol 10 mg Tablet
10 mg PO DAILY Qty: 30 1RF
Continued
furosemide 20 mg Tablet
20 mg PO DAILY
Eliquis 5 mg Tablet
5 mg PO BID
Entresto 24-26 mg Tablet
1 tab PO BID
Discontinued
spironolactone 25 mg Tablet
25 mg PO DAILY
atorvastatin [Lipitor] 20 mg Tablet
20 mg PO DAILY
Discharge Orders:
Discharge Patient (As Directed); Ordered 02/01/25
Ordered By: Steffi Alvarado
Care Plan Goals
Care Plan Goals:
Problem: Readiness for enhanced knowledge related to diagnosis and treatment plan
Goal: Understand your diagnosis and treatment plan needs, including medications if applicable.
Instructions: Know your diagnosis, underlying causes and treatment plan options, including medications if applicable. Consult with your health care team to learn about your diagnosis and treatment plan, including medications if applicable.
Discharge Date and Time
Print Language: CHINESE
--- NOTE | 2025-02-01 12:19 | PTCARENOTE ---
Pt worked with PT, tolerating walking in hallway and tolerated doing steps. Pt remains SR with first degree AV block and BBB. HR 68. BP 97/57 MAP 67. Pulse oximetry 97% on room air.
--- NOTE | 2025-02-01 14:44 | PTCARENOTE ---
Discharge order received. Pt showered. Discharge instructions reviewed with pt and pt's brother. Questions addressed. No questions at this time. Pt stable at discharge.
== END 2025-02-01 14:52 | disposition home or self-care (01) | DRG 1 ==
LOC: CVICU 10:45
PROVIDERS: Clinical Nurse Specialist Acute Care; Internal Medicine Cardiovascular Disease; Internal Medicine Gastroenterology; Nurse Practitioner; Physician Assistant; Physician Assistant Medical; ADMITTING PHYSICIAN Internal Medicine Interventional Cardiology; ATTENDING PHYSICIAN Thoracic Surgery (Cardiothoracic Vascular Surgery); CONSULT PHYSICIAN Internal Medicine Critical Care Medicine
PROC: 4A023N8 Measurement of Cardiac Sampling and Pressure, Bilateral, Percutaneous Approach (ICD-10-PCS; 2025-01-21)
PROC: B2111ZZ Fluoroscopy of Multiple Coronary Arteries using Low Osmolar Contrast (ICD-10-PCS; 2025-01-21)
PROC: B2151ZZ Fluoroscopy of Left Heart using Low Osmolar Contrast (ICD-10-PCS; 2025-01-21)
PROC: 30233R1 Transfusion of Nonautologous Platelets into Peripheral Vein, Percutaneous Approach (ICD-10-PCS; 2025-01-26)
PROC: 5A1221Z Performance of Cardiac Output, Continuous (ICD-10-PCS; 2025-01-26)
PROC: 06BP4ZZ Excision of Right Saphenous Vein, Percutaneous Endoscopic Approach (ICD-10-PCS; 2025-01-26)
PROC: 5A0221D Assistance with Cardiac Output using Impeller Pump, Continuous (ICD-10-PCS; 2025-01-26)
PROC: 02100ZC Bypass Coronary Artery, One Artery from Thoracic Artery, Open Approach (ICD-10-PCS; 2025-01-26)
PROC: 021209W Bypass Coronary Artery, Three Arteries from Aorta with Autologous Venous Tissue, Open Approach (ICD-10-PCS; 2025-01-26)
PROC: 02HA0RZ Insertion of Short-term External Heart Assist System into Heart, Open Approach (ICD-10-PCS; 2025-01-26)
PROC: 02L70CK Occlusion of Left Atrial Appendage with Extraluminal Device, Open Approach (ICD-10-PCS; 2025-01-26)
PROC: 06BQ4ZZ Excision of Left Saphenous Vein, Percutaneous Endoscopic Approach (ICD-10-PCS; 2025-01-26)
PROC: 02580ZZ Destruction of Conduction Mechanism, Open Approach (ICD-10-PCS; 2025-01-26)
PROC: X2HX0F9 Insertion of Conduit to Short-term External Heart Assist System into Thoracic Aorta, Ascending, Open Approach, New Technology Group 9 (ICD-10-PCS; 2025-01-26)
PROC: 0DJ08ZZ Inspection of Upper Intestinal Tract, Via Natural or Artificial Opening Endoscopic (ICD-10-PCS; 2025-01-26)
PROC: 5A09357 Assistance with Respiratory Ventilation, Less than 24 Consecutive Hours, Continuous Positive Airway Pressure (ICD-10-PCS; 2025-01-28)
PROC: 02PW3RZ Removal of Short-term External Heart Assist System from Thoracic Aorta, Descending, Percutaneous Approach (ICD-10-PCS; 2025-01-28)
PROC: 30233N1 Transfusion of Nonautologous Red Blood Cells into Peripheral Vein, Percutaneous Approach (ICD-10-PCS; 2025-01-28)
DX: I48.19 Other persistent atrial fibrillation (principal); I50.23 Acute on chronic systolic (congestive) heart failure; R57.0 Cardiogenic shock; E87.20 Acidosis, unspecified; D62 Acute posthemorrhagic anemia; D68.9 Coagulation defect, unspecified; J98.11 Atelectasis; I42.0 Dilated cardiomyopathy; I11.0 Hypertensive heart disease with heart failure; R73.03 Prediabetes; I25.10 Atherosclerotic heart disease of native coronary artery without angina pectoris; I25.82 Chronic total occlusion of coronary artery; I50.82 Biventricular heart failure; I25.5 Ischemic cardiomyopathy; I27.29 Other secondary pulmonary hypertension; E78.00 Pure hypercholesterolemia, unspecified; E66.812 Obesity, class 2; E87.6 Hypokalemia; K29.70 Gastritis, unspecified, without bleeding; E83.51 Hypocalcemia; D69.59 Other secondary thrombocytopenia; E86.1 Hypovolemia; I08.1 Rheumatic disorders of both mitral and tricuspid valves; R00.1 Bradycardia, unspecified; Z68.36 Body mass index [BMI] 36.0-36.9, adult; Z79.899 Other long term (current) drug therapy; Z82.49 Family history of ischemic heart disease and other diseases of the circulatory system; Z86.16 Personal history of COVID-19
CPT/HCPCS: 93308; 71045; 71046; 71250; 80048; 80053; 80061; 81003; 81015; 82248; 82330; 82565; 82805; 82810; 82962; 83036; 83605; 83615; 83735; 84132; 84302; 85014; 85018; 85025; 85027; 85049; 85379; 85384; 85610; 85730; 86850; 86900; 86901; 86920; 87086; 93005; 93460; 93650; 93880; 93971; 94002; 94660; 97116; 97163; 97167; 97530; 99152; 99153; C1713; C1768; C1894; J2260; P9016; P9045; P9073; Q9950; Q9967

== ENCOUNTER 2025-03-15 06:20 | Day surgery (SDC) | payer MEDICARE, SELFPAY ==
[2025-03-15 08:19] VITALS: BMI 36.7
== END 2025-03-15 09:25 | disposition home or self-care (01) ==
LOC: CATH 06:20
PROVIDERS: ATTENDING PHYSICIAN Internal Medicine Cardiovascular Disease; OTHER PHYSICIAN Internal Medicine Cardiovascular Disease
DX: I48.19 Other persistent atrial fibrillation (principal); Z53.09 Procedure and treatment not carried out because of other contraindication; I25.10 Atherosclerotic heart disease of native coronary artery without angina pectoris; Z95.1 Presence of aortocoronary bypass graft; Z87.891 Personal history of nicotine dependence; Z82.49 Family history of ischemic heart disease and other diseases of the circulatory system; Z79.01 Long term (current) use of anticoagulants; Z79.82 Long term (current) use of aspirin
CPT/HCPCS: 92960

== ENCOUNTER 2025-03-24 09:01 | Day surgery (SDC) | payer MEDICARE, SELFPAY ==
--- NOTE | 2025-03-24 10:11 | ITS.CL.CARDI ---
Color Depositing Machine Tender - Cardioversion
Cardioversion
Procedure Report:
Date of Procedure: 03/24/25
Procedure: Cardioversion
Indication: Symptomatic atrial fibrillation
Performing Physician: Sunny Thompson MD
Technique: The patient was brought to the holding area. Signed informed consent was obtained. A time out was called and performed. The patient was anesthetized by the anesthesia service. Anticoagulation status was reviewed and appropriate. R2 pads
were placed anteriorly and posteriorly. A 200 J synchronized biphasic shock restored normal sinus rhythm without significant bradycardia. There were no complications.
Conclusion: Uncomplicated cardioversion from atrial fibrillation to sinus rhythm.
Recommendation: Routine post cardioversion care. Continue extermination inspector anticoagulation.
== END 2025-03-24 11:05 | disposition home or self-care (01) ==
LOC: CATH 09:01
PROVIDERS: ATTENDING PHYSICIAN Internal Medicine Cardiovascular Disease; OTHER PHYSICIAN Internal Medicine Cardiovascular Disease
DX: I48.19 Other persistent atrial fibrillation (principal); I11.0 Hypertensive heart disease with heart failure; I50.22 Chronic systolic (congestive) heart failure; E78.5 Hyperlipidemia, unspecified; I25.10 Atherosclerotic heart disease of native coronary artery without angina pectoris; Z79.01 Long term (current) use of anticoagulants; Z79.82 Long term (current) use of aspirin
CPT/HCPCS: 92960; 93005

== ENCOUNTER → 2025-05-09 12:45 | Outpatient (REF) | payer MEDICARE, SELFPAY | LOC: RCS 12:45 | PROVIDERS: ATTENDING PHYSICIAN Nurse Practitioner; FAMILY PHYSICIAN Family Medicine; OTHER PHYSICIAN Internal Medicine Cardiovascular Disease | DX: I48.19 Other persistent atrial fibrillation (principal); I50.82 Biventricular heart failure | CPT/HCPCS: 93306; Q9950 ==

== ENCOUNTER → 2025-08-19 11:13 | Outpatient (REF) | payer MEDICARE, SELFPAY ==
--- NOTE | 2025-08-19 12:22 | CARDSERVLU ---
Echocardiogram with Lumason completed after protocol screening completed. Allergies verified.
Patent IV site: _Rt FA____
IV site flushed with 0.9% NaCl pre and post administration.
Diluted bolus method utilized to enhance visualization of ventricular saavedra.
Total volume given: _3.5___ mL
Patient tolerated all procedures well without complications.
#22 misbah placed Rt FA. Lumason given. INT d/c'd. pressure held. No bleeding noted.
== END ==
LOC: RCS 11:13
PROVIDERS: ATTENDING PHYSICIAN Internal Medicine Cardiovascular Disease; FAMILY PHYSICIAN Internal Medicine
DX: I50.20 Unspecified systolic (congestive) heart failure (principal)
CPT/HCPCS: 93306; Q9950